=== PATIENT | female | born 1950 | race Caucasian/White ===

== ENCOUNTER 2019-08-18 13:38 | Observation (INO) | payer MEDICARE ==
[~2019-08-18] VITALS: Ht 167.6 cm; Wt 113.4 kg
--- NOTE | 2019-08-18 15:04 | NUR ---
client reports longstanding fungal infection to left foot and infected hair follicle. client has been dealing with this issue since June. believes she is having a reaction to prednisone injection yesterday.
[2019-08-18] MEDS ORDERED: TRIAMCINOLONE A15 G1 TOP (15:14)
[2019-08-18] MEDS ORDERED: ALPRAZOLAM0.5 M1 PO (15:14)
[2019-08-18] MEDS ORDERED: PROMETHAZINE HC25 M1 PO (15:15)
[2019-08-18] MEDS ORDERED: MUPIROCIN15 GM (15:15)
[2019-08-18] MEDS ORDERED: VOLTAREN100 GM (15:16)
[2019-08-18] MEDS ORDERED: SPIRONOLACTONE25 MG PO (15:16)
[2019-08-18] MEDS ORDERED: HYDROXYZINE HCL25 MG PO ×2 (15:16→22:46)
[2019-08-18] MEDS ORDERED: CLOTRIMAZOLE15 GM TOP (15:18)
[2019-08-18] MEDS ORDERED: OMEPRAZOLE40 MG PO (15:19)
[2019-08-18] MEDS ORDERED: VALTREX500 MG PO (15:19)
[2019-08-18] MEDS ORDERED: DIOVAN160 MG PO (15:19)
[2019-08-18] MEDS ORDERED: METOPROLOL SUCC25 MG PO (15:20)
[2019-08-18] MEDS ORDERED: URIBEL CAPSULE1 EACH (15:20)
[2019-08-18] MEDS ORDERED: ESTRADIOL1 MG PO (15:20)
[2019-08-18] MEDS ORDERED: TEMAZEPAM15 MG (15:20)
[2019-08-18] MEDS ORDERED: PREMARIN0.9 MG PO (15:21)
--- NOTE | 2019-08-18 15:42 | Emergency Department Note ---
History of Present Illnes History of Present Illness Chief Complaint: General Medicine Complaints History of Present Illness This is a 68 year old female arrives the ED with complaints of chest pain and back pain. Patient states pain began after taking steroids for her atopic dermatitis. Patient denies any fever or chills.. 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 Any updates have been documented here. Past Medical History Recent Fever: No Clinical Suspicion of Infectio: No New/Unexplained Change in Ment: No Past Medical History: Hypertension, Asthma, CAD, Anxiety, Depression, Other Mental Illness, Hyperlipedemia, Chronic Back Pain Other Medical History: MORBID OBEISITY SLEEP APNEA HEARING LOSS WITH HEARING AIDS. Past Surgical History: PCI, Back Surgery Review of Systems Review of Systems Constitutional: as per HPI EENTM: no symptoms Cardiovascular: as per HPI, chest pain Respiratory: no symptoms Gastrointestinal: no symptoms Genitourinary: no symptoms Musculoskeletal: no symptoms Neurological: no symptoms Psychological: no symptoms Endocrine: no symptoms Hematological/Lymphatic: no symptoms Review of other systems All other systems reviewed and negative. Physical Exam Related Data Allergies: Coded Allergies: Sulfa (Sulfonamide Antibiotics) (Verified Allergy, Unknown, 08/18/19) metoclopramide (Verified Allergy, Unknown, 08/18/19) Triage Vital Signs Vital Signs Date Time Temp Pulse Resp B/P (MAP) Pulse Ox O2 Delivery O2 Flow Rate FiO2 08/18/19 13:41 97.9 67 18 174/84 98 Vital signs reviewed: Yes Physical Exam CONSTITUTIONAL Constitutional: well-developed, well-nourished HENT HENT: normocephalic, atraumatic, oropharynx clear/moist, nose normal HENT L/R: left ext ear normal, right ext ear normal EYES Eyes: PERRL, conjunctivae normal NECK Neck: ROM normal PULMONARY Pulmonary: effort normal, breath sounds normal CARDIOVASCULAR Cardiovascular: regular rhythm, heart sounds normal, capillary refill normal, normal rate GASTROINTESTINAL Abdominal: soft, nontender, bowel sounds normal GENITOURINARY Genitourinary: exam deferred SKIN Skin: warm, dry MUSCULOSKELETAL Musculoskeletal: ROM normal NEUROLOGICAL Neurological: alert, oriented x 3, no gross motor or sensory deficits PSYCHOLOGICAL Psychological: mood/affect normal, judgement normal Results Laboratory Lab results reviewed: Yes Laboratory comments Laboratory Tests Test 08/19/19 05:50 08/19/19 00:45 08/18/19 22:18 Creatine Kinase 29 IU/L (29-168) 27 IU/L (29-168) Creatine Kinase MB 0.80 ng/mL (0-5.0) 0.30 ng/mL (0-5.0) Troponin I 0.002 ng/mL (0-0.300) < 0.001 ng/mL (0-0.300) Triglycerides Level 101 MG/DL (0-149) Cholesterol Level 254 MD/DL (0-199) LDL Cholesterol 142 MG/DL (60-130) HDL Cholesterol 92 MG/DL (40-60) Cholesterol/HDL Ratio 2.8 (3.0-3.6) Imaging Imaging results reviewed: Yes Impressions PLEURA: The pleural spaces are clear. HEART AND MEDIASTINUM: The thyroid gland is normal. No mediastinal, hilar or axillary lymphadenopathy. The heart is normal in size.. There is no pericardial effusion. Mild coronary artery calcifications. UPPER ABDOMEN: Limited non-contrast views of the upper abdomen show hepatic steatosis. The adrenal glands are normal. Large, 6.0 cm cyst exophytic of the posterior lower interpolar region of the left kidney. Atherosclerotic calcifications of the abdominal aorta. BONES: Surgical fusions of the lower cervical spine partially visualized. Mild spondylosis of the thoracic spine. SOFT TISSUES: Bilateral nodular breast tissue is a nonspecific finding not completely evaluated with this examination. Correlate with appropriate breast imaging exam. IMPRESSION: Lingular subsegmental atelectasis. Otherwise no acute abnormality. Diagnostics Tests Diagnostic test(s) reviewed: Yes Diagnostic comments PLEURA: The pleural spaces are clear. HEART AND MEDIASTINUM: The thyroid gland is normal. No mediastinal, hilar or axillary lymphadenopathy. The heart is normal in size.. There is no pericardial effusion. Mild coronary artery calcifications. UPPER ABDOMEN: Limited non-contrast views of the upper abdomen show hepatic steatosis. The adrenal glands are normal. Large, 6.0 cm cyst exophytic of the posterior lower interpolar region of the left kidney. Atherosclerotic calcifications of the abdominal aorta. BONES: Surgical fusions of the lower cervical spine partially visualized. Mild spondylosis of the thoracic spine. SOFT TISSUES: Bilateral nodular breast tissue is a nonspecific finding not completely evaluated with this examination. Correlate with appropriate breast imaging exam. IMPRESSION: Lingular subsegmental atelectasis. Otherwise no acute abnormality. Procedures 12 Lead ECG Interpretation Prior NEUROUROLOGIST tracings: reviewed Rhythm: sinus rhythm Rate: normal QRS axis: left Conduction: left bundle branch block Clinical Impression: normal ECG Smoking Cessation Patient acknowledges need for: Yes Critical Care Time Subsequent provider I assumed direction of critical care for this patient from another provider of my specialty. Assessment & Plan Assessment & Plan Final Impression: (1) CHEST PAIN, UNSPECIFIED Assessment & Plan cbc, cmp CT Chest admit for serial cardiac markers Depart Disposition: ADMITTED Last Vital Signs Date Time Temp Pulse Resp B/P (MAP) Pulse Ox O2 Delivery O2 Flow Rate FiO2 08/18/19 15:03 97.6 68 16 195/107 98 Home Meds Reported Medications Temazepam (RESTORIL) 15 Mg Capsule, 60 MG PO HS, #60 TAB 08/18/19 Tramadol Hcl (ULTRAM) 50 Mg Tablet, 100 MG PO Q8H PRN for MODERATE PAIN (4-6), TAB 08/18/19 Hydroxyzine Hcl (HYDROXYZINE HCL) 25 Mg Tablet, 50 MG PO TID PRN for ITCHING, #30 TAB 50-100mg 08/18/19 Prednisone (PREDNISONE) 20 Mg Tab, 20 MG PO DAILY, #30 TAB 08/18/19 Clobetasol Propionate (CLOBETASOL PROPIONATE) 1 Ea/15 Gm Cr, 1 APPLIC TOP BID 08/18/19 Estrogens, Conjugated (PREMARIN) 0.9 Mg Tablet, 0.9 MG PO DAILY 08/18/19 Metoprolol Succinate (METOPROLOL SUCCINATE) 25 Mg Tab.er.24h, 25 MG PO DAILY 08/18/19 Valsartan (DIOVAN) 160 Mg Tab, 160 MG PO DAILY, #60 TAB 08/18/19 Valacyclovir Hcl (VALTREX) 500 Mg Tab, 1000 MG PO BID PRN for ITCHING, TAB 08/18/19 Omeprazole (OMEPRAZOLE) 40 Mg Capsule.dr, 40 MG PO DAILY 08/18/19 Spironolactone (SPIRONOLACTONE) 25 Mg Tablet, 50 MG PO DAILY, #60 TAB 08/18/19 Promethazine Hcl (PROMETHAZINE HCL) 25 Mg Tablet, 12.5 MG PO BID PRN for NAUSEA, TAB 08/18/19 Alprazolam (ALPRAZOLAM) 0.5 Mg Tab.rapdis, 0.5 MG PO HS PRN for ANXIETY 08/18/19 Discontinued Reported Medications Ketoconazole (KETOCONAZOLE) 15 Gm Cream..g., 1 APPLIC TOP DAILY, GM 08/18/19 Cyclobenzaprine Hcl (CYCLOBENZAPRINE HCL) 10 Mg Tablet, 10 MG PO TID PRN for MUSCLE SPASMS, TAB 08/18/19 Baclofen (BACLOFEN) 10 Mg Tablet, 10 MG PO Q6H PRN for MUSCLE SPASMS, #90 TAB 08/18/19 Temazepam (TEMAZEPAM) 15 Mg Capsule 08/18/19 Mth/Me Blue/Sod Phos/Phen/Hyos (URIBEL CAPSULE) 1 Each Capsule 08/18/19 Estradiol (ESTRADIOL) 1 Mg Tab, 0.1 MG PO DAILY, #30 TAB 08/18/19 Clotrimazole (CLOTRIMAZOLE) 15 Gm Cream..g., 1 % TOP, EACH 08/18/19 Diclofenac Sodium (VOLTAREN) 100 Gm Gel..gram. THERAPEUTICALLY SUBSTITUTED WITH IBUPROFEN 600MG 08/18/19 Hydroxyzine Hcl (HYDROXYZINE HCL) 25 Mg Tablet, 25 MG PO DAILY, #30 TAB 08/18/19 Mupirocin Calcium (Mupirocin) 15 Gm Cream..g. 08/18/19 Triamcinolone Acet (TRIAMCINOLONE ACETONIDE) 15 Gm Cr, 1 APPLIC TOP BID 08/18/19 HAMZAH OLIVEIRA, Aug 18, 2019 15:42
[2019-08-18] MEDS ORDERED: ASPIRIN 81 MG CHEW TAB PO ONE (15:45)
[2019-08-18 15:53] LABS: BASOPHILS % 0.3 % (0.0-1.0); EOSINOPHILS # (AUTO) 0.1 (0.0-0.4); EOSINOPHILS % 1.5 % (0.0-6.0); HEMATOCRIT 38.3 % (34.2-44.1); HEMOGLOBIN 12.6 g/dL (12.0-16.0); LYMPHOCYTES # (AUTO) 1.7 (1.0-3.2); LYMPHOCYTES % 29.2 % (18.0-39.1); MEAN CORPUSCULAR HEMOGLOBIN 30.2 pg (28-32); MEAN CORPUSCULAR HGB CONC 32.9 g/dL (31-35); MEAN CORPUSCULAR VOLUME 91.8 fL (81-99); MONOCYTES # (AUTO) 0.4 (0.2-0.8); MONOCYTES % 6.2 % (4.4-11.3); NEUTROPHILS # (AUTO) 3.6 (2.1-6.9); NEUTROPHILS % 61.4 % (38.7-80.0); PLATELET COUNT 205 x10e3/uL (140-360); RED BLOOD COUNT 4.17 x10e6/uL (3.6-5.1); RED CELL DISTRIBUTION WIDTH 12.6 % (11.7-14.4)
[2019-08-18 16:13] LABS: ALANINE AMINOTRANSFERASE 12 IU/L (0-55); ALBUMIN/GLOBULIN RATIO 1.3 (0.8-2.0); ALKALINE PHOSPHATASE 74 IU/L (40-150); ANION GAP 12.5 mmol/L (8-16); BLOOD UREA NITROGEN 19 mg/dL (7-26); BUN/CREATININE RATIO 18 (6-25); CALCIUM 9.4 mg/dL (8.4-10.2); CARBON DIOXIDE 28 mmol/L (22-29); CHLORIDE 105 mmol/L (98-107); CREATINE KINASE 25 IU/L (29-168); CREATININE, SERUM 1.07 mg/dL (0.57-1.11); EST GLOMERULAR FILTRATION RATE 51 ML/MIN (60-); GLUCOSE 100 mg/dL (74-118); POTASSIUM 3.5 mmol/L (3.5-5.1); SODIUM 142 mmol/L (136-145)
--- NOTE | 2019-08-18 17:59 | Diagnostic Imaging Report ---
EXAMINATION: CHEST SINGLE (PORTABLE) INDICATION: Dyspnea. COMPARISON: None FINDINGS: TUBES and LINES: None. LUNGS: Left basilar platelike atelectasis. There is no evidence of pneumonia or pulmonary edema. PLEURA: No pleural effusion or pneumothorax. HEART AND MEDIASTINUM: The cardiomediastinal silhouette is unremarkable. BONES AND SOFT TISSUES: No acute osseous lesion. Soft tissues are unremarkable. UPPER ABDOMEN: No free air under the diaphragm. IMPRESSION: No acute thoracic abnormality. Signed by: Dr. Elsy Hernandez M.D. on 08/18/2019 5:55 PM
--- NOTE | 2019-08-18 18:12 | Diagnostic Imaging Report ---
EXAM: CT Chest WITH contrast 08/18/2019 4:44 PM INDICATION: Pain. Dyspnea. COMPARISON: None TECHNIQUE: Chest was scanned utilizing a multidetector helical scanner from the lung apex through the level of the adrenal glands without administration of IV contrast. Coronal and sagittal reformations were obtained. Pulmonary embolism protocol was performed. IV CONTRAST: 100 cc Isovue 300 RADIATION DOSE: Total DLP: 510.97 mGy*cm Estimated effective dose: (DLP x 0.014 x size factor) mSv COMPLICATIONS: None FINDINGS: LINES/ TUBES: None. LUNGS AND AIRWAYS: Lingular subsegmental atelectasis. No filling defects to the segmental level. Airways are normal. PLEURA: The pleural spaces are clear. HEART AND MEDIASTINUM: The thyroid gland is normal. No mediastinal, hilar or axillary lymphadenopathy. The heart is normal in size.. There is no pericardial effusion. Mild coronary artery calcifications. UPPER ABDOMEN: Limited non-contrast views of the upper abdomen show hepatic steatosis. The adrenal glands are normal. Large, 6.0 cm cyst exophytic of the posterior lower interpolar region of the left kidney. Atherosclerotic calcifications of the abdominal aorta. BONES: Surgical fusions of the lower cervical spine partially visualized. Mild spondylosis of the thoracic spine. SOFT TISSUES: Bilateral nodular breast tissue is a nonspecific finding not completely evaluated with this examination. Correlate with appropriate breast imaging exam. IMPRESSION: Lingular subsegmental atelectasis. Otherwise no acute abnormality. Signed by: Dr. Elsy Hernandez M.D. on 08/18/2019 6:09 PM
[2019-08-18] MEDS ORDERED: IOPAMIDOL 370 MG/ML 200 ML INFUS..BTL INJ ONE (19:15)
[2019-08-18] MEDS ORDERED: SODIUM CHLORIDE 0.9% 50ML 50 ML ONE (19:15)
--- OUTSIDE RECORDS SUMMARY | 2019-08-18 20:04 | XMS REPORT | Clinical Summary ---
Author Author LEVY [employer] [place] [address] [facility] [employer] [facility] Address Unknown Phone Unavailable Care Team Providers Care Textile Supervisor Name Role Phone Layo Stock PCP Allergies Comments Active Allergy Reactions Severity Noted Date Bandaids Adhesive Tape Rash Low 01/11/2013 "coming out of skin" Metoclopramide Hcl Other (See High 09/10/2016 Comments) Sulfa (Sulfonamide Hives Medium 09/10/2016 Antibiotics) Medications End Date Status Medication Sig Dispensed Refills Start Date Active temazepam (RESTORIL) 30 Take 30 mg by 0 mg capsule mouth every night as needed for Sleep Takes 2 tablets . Active metoprolol (LOPRESSOR) 25 Take 25 mg by 0 MG tablet mouth daily. Active valsartan-hydrochlorothia Take 1 tablet 0 zide (DIOVAN HCT) by mouth 160-12.5 mg per tablet daily. Active estradiol (ESTRACE) 0.01 Place 1 g 0 01/19 % (0.1 mg/gram) vaginal vaginally as 8 cream needed . Active albuterol HFA (PROVENTIL Take 180 mcg 0 07/15 HFA) 90 mcg/actuation by mouth 9 inhaler every 6 (six) hours as needed . Active DULoxetine (CYMBALTA) 60 Take 60 mg by 0 MG capsule mouth daily. Active doxycycline (VIBRAMYCIN) Take 100 mg 0 100 MG capsule by mouth 2 (two) times daily. Active clotrimazole (LOTRIMIN) 1 Apply 0 % cream topically 2 (two) times daily. Active HYDROcodone-acetaminophen Take 1 tablet 0 (NORCO 10-325) 10-325 mg by mouth per tablet every 6 (six) hours as needed for Pain. Active estrogens, conjugated, Take 0.9 mg 0 (PREMARIN) 0.9 MG tablet by mouth daily for 21 days then do not take for 7 days. . Active omeprazole (PRILOSEC) 40 Take 40 mg by 0 MG capsule mouth daily. Active josh-salma.phos-phsa Take by 0 l-hyo 118-10-40.8-36 mg mouth. Cap Active spironolactone Take 50 mg by 0 (ALDACTONE) 50 MG tablet mouth daily. Active valACYclovir (VALTREX) Take 500 mg 0 500 MG tablet by mouth. Active ALPRAZolam (XANAX) 0.5 MG Take 0.5 mg 0 tablet by mouth every night as needed for Anxiety. Active traMADoL (ULTRAM) 50 mg Take 50 mg by 0 tablet mouth every 6 (six) hours as needed for Pain. 05/25/2019 Discontinued buPROPion (WELLBUTRIN XL) Take 300 mg 0 300 MG 24 hr tablet by mouth daily. 05/25/2019 Discontinued atorvastatin (LIPITOR) 40 Take 40 mg by 0 MG tablet mouth nightly. 05/25/2019 Discontinued ALPRAZolam (XANAX) 0.5 MG Take 0.5 mg 0 tablet by mouth every night as needed for Anxiety. 05/25/2019 Discontinued omeprazole (PRILOSEC) 40 Take 40 mg by 0 MG capsule mouth daily. 05/25/2019 Discontinued cyclobenzaprine (FEXMID) Take 7.5 mg 0 7.5 MG tablet by mouth 2 (two) times daily as needed for Muscle spasms. 05/25/2019 Discontinued cyclobenzaprine Take 10 mg by 0 (FLEXERIL) 10 MG tablet mouth 2 (two) times daily as needed for Muscle spasms. 05/25/2019 Discontinued venlafaxine (EFFEXOR-XR) Take 300 mg 0 75 MG 24 hr capsule by mouth daily . 10/14/2018 Discontinued HYDROcodone-acetaminophen TK 1 T PO Q 6 0 (NORCO 10-325) 10-325 mg H PRF PAIN 9 per tablet 05/25/2019 Discontinued PROAIR HFA 90 INHALE 2 6 mcg/actuation inhaler PUFFS PO Q 4 9 H PRF WHEEZINF 10/24/2018 HYDROcodone-acetaminophen Take 1-2 45 tablet 0 (NORCO 10-325) 10-325 mg tablets by 9 per tablet mouth every 4 (four) hours as needed for Pain for up to 10 days. Max Daily Amount: 12 tablets 11/14/2018 aspirin 325 MG EC tablet Take 1 tablet 30 tablet 0 (325 mg 9 total) by mouth daily for 30 days. 11/13/2018 meloxicam (MOBIC) 15 MG Take 1 tablet 30 tablet 0 tablet (15 mg total) 9 by mouth daily for 30 days. 06/01/2019 mupirocin (BACTROBAN) 2 % Apply 1 g 22 g 0 ointment topically 3 0 (three) times daily for 7 days. Active Problems Problem Noted Date Arthritis 10/13/2018 Arthritis of right knee 09/18/2016 Status post right knee replacement 09/18/2016 Encounters Care Team Description Date Type Specialty Tanya Yanes MD Visit for wound check (Primary Dx) 05/25/2019 Emergency Emergency Medicine 05/25/2019 Travel Kalyn Leija MD Bilateral renal masses (Primary Dx) 12/22/2018 Outside Orders Central Scheduling Bret Fuller MD Bilateral hand pain; Chronic radicular low back pain 11/09/2018 Hospital Radiology Encounter Bret Fuller MD Bilateral hand pain; Chronic radicular low back pain 11/09/2018 Hospital Radiology Encounter Bret Fuller MD Bilateral hand pain; Chronic radicular low back pain 11/09/2018 Hospital Radiology Encounter Bret Fuller MD Bilateral hand pain (Primary Dx); Chronic radicular low back pain 11/09/2018 Outside Orders Central Scheduling Lisa Mckeon RN Follow-up 10/15/2018 Telephone Anesthesiology Mahesh Esqueda Jr., MD MAKOPLASTY,KNEE 10/13/2018 Surgery General Surgery Alber Abarca MD 10/13/2018 Anesthesia General Surgery Event Mahesh Esqueda Jr., MD 10/13/2018 [facility] Internal Me dicine - Encounter 10/14/2018 10/13/2018 Travel 10/01/2018 Hospital Pre-Admission Testi ng Encounter Mahesh Esqueda Jr., MD 1, [facility] [address] Room Primary osteoarthritis of left knee 08/24/2018 Hospital Computed Tomography Encounter Mahesh [facility]eda Jr., [facility] Primary osteoarthritis of left knee 08/24/2018 Hospital Computed Tomography Encounter Mahesh Esqueda Jr., MD Primary osteoarthritis of left knee (Gely sandoval Dx) 08/24/2018 Outside Orders Central Scheduling Mahesh Esqueda Jr., MD Osteoarthritis of left knee, unspecified osteoarthritis type (Primary Dx); Primary osteoarthritis of left knee 08/23/2018 Outside Orders Central Scheduling after 08/17/2018 Social History Date Tobacco Use Types Packs/Day Years Used Never Smoker Smokeless Tobacco: Never Used Alcohol Use Drinks/Week oz/Week Comments No Sex Assigned at Date Recorded Not on file Industry Job Start Date Occupation Not on file Not on file Not on file Travel End Travel History Travel Start No recent travel history available. Last Filed Vital Signs Time Taken Vital Sign Reading 05/25/2019 2:25 PM CDT Blood Pressure 155/77 05/25/2019 2:25 PM CDT Pulse 70 05/25/2019 2:25 PM CDT Temperature 36.3 C (97.4 F) 05/25/2019 2:25 PM CDT Respiratory Rate 20 05/25/2019 12:53 PM CDT Oxygen Saturation 99% 10/14/2018 4:57 AM CDT Inhaled Oxygen 21% Concentration 05/25/2019 12:53 PM CDT Weight 77.1 kg (170 lb) 05/25/2019 12:53 PM CDT Height 147.3 cm (4' 10") 05/25/2019 12:53 PM CDT Body Mass Index 35.53 Plan of Treatment Health Maintenance Due Date Last Done Comments BREAST CANCER SCREENING 1950 COLON CANCER SCREENING 1950 COLONOSCOPY MEDICARE ANNUAL WELLNESS 09/14/2018 (YEAR 2 or FIRST YEAR if no IPPE) PNEUMOCOCCAL 65+ Completed 11/09/2018, 019, 08/23/2018 LOW/MEDIUM RISK INFLUENZA VACCINE Completed 12/24/2018, 018, 11/15/2015 Implants Device Identifier Shelf Expiration Date Model / Serial / L ot Implanted Type Area Manufactur er 01/13/2019 6191-1-001 / / [id number] Cement Bone Surg Smplx P Full Cement/Edmar Right: Knee JOHNATHAN:ST 6191-1-001 - [id number] ler/Adhesi CORNELIUS Implanted: Qty: 2 on 09/18/2016 by Cherie Kate MD 05/13/2022 [id number] / / [id number] Senthil Bn Palacos R 40 G [id number] - IMPLANTS Left: Knee HERAEUS:HE [id number] RAEUS Implanted: Qty: 1 on 10/13/2018 by Mahesh Munson Jr., MD 01/06/2021 5551-G-299 / / [id number] Patella Tri Asymmetric [id number] Joints Right: Knee JOHNATHAN:ST 5551-G-299 - [id number] CONRELIUS Implanted: Qty: 1 on 09/18/2016 by Cherie Perry MD 08/25/2021 5521-B-300 / / [id number] Baseplt Tri Ts 3 5521-B-300 - Joints Right: Knee JOHNATHAN:ST [id number] CORNELIUS Implanted: Qty: 1 on 09/18/2016 by Cherie Perry MD 04/16/2021 5510-F-302 / / [id number] Comp Femoral #3 R 5510-F-302 - Joints Right: Knee JOHNATHAN:ST [id number] CORNELIUS Implanted: Qty: 1 on 09/18/2016 by Cherie Perry MD 04/15/2021 5530-G-309 / / [id number] Insrt Tib Tri Crx 9mm 5530-G-309 - Joints Right: Knee JOHNATHAN:ST [id number] CORNELIUS Implanted: Qty: 1 on 09/18/2016 by Cherie Perry MD 01/06/2022 5530-G-209 / / [id number] Insrt Tib Tri Crx Sz2 9mm TOTAL Left: Knee STRY KER:ST 5530-G-209 - [id number] JOINT CORNELIUS Implanted: Qty: 1 on 10/13/2018 by Mahesh Vaughn Jr., MD 11/27/2021 5510-F-201 / / [id number] Comp Fem Cr Senthil No.2 L 5510-F-201 - TOTAL Left: Knee JOHNATHAN:ST [id number] JOINT CORNELIUS Implanted: Qty: 1 on 10/13/2018 by CONSTRUCT ORT Mahesh Nazario Jr., MD CS 07/05/2023 5521-B-200 / / [id number] Baseplt Triathlon Ts Sz2 5521-B-200 TOTAL Left: Knee JOHNATHAN:ST - [id number] JOINT CORNELIUS Implanted: Qty: 1 on 10/13/2018 by CONSTRUCT ORT Mahesh Nazario Jr., MD Procedures Comments Procedure Name Priority Date/Time Associated Diag nosis XR SPINE LUMBAR COMPLETE Routine 11/09/2018 Bilat eral hand pain MIN 4 VIEWS 4:13 PM CDT Chronic radicular l ow back pain XR HAND 3 VIEWS LEFT Routine 11/09/2018 Bilateral hand pain 4:02 PM CDT Chronic radicular low back pain XR HAND 3 VIEWS RIGHT Routine 11/09/2018 Bilatera l hand pain 4:02 PM CDT Chronic radicular low back pain RHYTHM STRIP - SCAN 10/18/2018 8:00 AM CDT TRANSFUSION SERVICE 10/14/2018 REPORT - SCAN 5:53 PM CDT BASIC METABOLIC PANEL (7) Routine 10/14/2018 4:48 AM CDT HEMOGLOBIN AND HEMATOCRIT Routine 10/14/2018 4:48 AM CDT HIV-1 ANTIGEN WITH Routine 10/13/2018 HIV-1/2 ANTIBODY 9:29 PM CDT HEPATITIS PANEL, ACUTE Routine 10/13/2018 9:29 PM CDT XR KNEE LEFT 1 OR 2 VIEWS Routine 10/13/2018 6:27 PM CDT TISSUE EXAM AP Routine 10/13/2018 5:11 PM CDT PROCEDURE W/ BILLY ROBOT 10/13/2018 Primary osteo arthritis of 3:30 PM CDT left knee Case Notes Special Needs (JOHNATHAN TRIATHLON, BILLY ROBOT, SPINAL WITH PERIPHERAL NERVE BLOCK) MAKOPLASTY,KNEE 10/13/2018 Primary osteoarthri tis of 3:30 PM CDT left knee Case Notes Special Needs (JOHNATHAN TRIATHLON, BILLY ROBOT, SPINAL WITH PERIPHERAL NERVE BLOCK) MA AN PERINEURAL CATH - Routine 10/13/2018 NO CHARGE 3:18 PM CDT ANESTHESIA SPINAL BLOCK Routine 10/13/2018 3:17 PM CDT TYPE AND SCREEN, Routine 10/13/2018 AUTOMATED 11:[address] LOWER EXTREMITY Routine 08/24/2018 Primary ost eoarthritis of WITHOUT IV CONTRAST LEFT 3:00 PM CDT left knee after 08/17/2018 Results * XR spine lumbar complete 4 views min (11/09/2018 4:13 PM CDT) Specimen Narrative Performed At FINAL REPORT [facility] Lumbar Spine Radiographs:Five views HISTORY:Pain COMPARISON: None available. DISCUSSION: There are five non-rib bearing lumbar v ertebral bodies. The alignment of the spine is within no rmal limits. No displaced fracture or compression de formity is identified. Degenerative disc disease at multiple l evels, most markedly at L5-S1. Bilateral facet arthropathy at L4-L5 an d L5-S1. Consultations of the abdominal aorta in cidentally noted. IMPRESSION: Degenerative disc disease and facet art hropathy at multiple levels most markedly involving L5-S1. Signed: Ulises Bailey MD Report Verified Date/Time: 9 16:18:32 Reading Location: [facility] Reading Ro om 3 - B01.625 Procedure Note Interface, External Ris In - 11/09/2018 4:20 PM CDT FINAL REPORT Lumbar Spine Radiographs: Five views HISTORY: Pain COMPARISON: None available. DISCUSSION: There are five non-rib bearing lumbar vertebral bodies. The alignment of the spine is within normal limits. No displaced fracture or compression deformity is identified. Degenerative disc disease at multiple levels, most markedly at L5-S1. Bilateral facet arthropathy at L4-L5 and L5-S1. Consultations of the abdominal aorta incidentally noted. IMPRESSION: Degenerative disc disease and facet arthropathy at multiple levels most markedly involving L5-S1. Signed: Ulises Bailey MD Report Verified Date/Time: 11/09/2018 16:18:32 Reading Location: [employer] Reading Room 3 [place] [address] Performing Organization Address City/State/[facility] Ph one Number GE [facility] * XR hand 3 views right (11/09/2018 4:02 PM CDT) Specimen Narrative Performed At FINAL REPORT [facility] Bilateral hand three - views HISTORY:Pain. COMPARISON: None FINDINGS: No displaced fracture. Osseous alignment is within normal limi ts. Mild degenerative osteoarthrosis of mul tiple bilateral DIP joints consisting of slight joint space narrow ing, minimal subchondral sclerosis, a small marginal osteophytes , particularly involving the first distal interphalangeal joint bila terally, right greater than left. IMPRESSION: Mild bilateral degenerative osteoarthro sis involving the DIP joints. Signed: Ulises Bailey MD Report Verified Date/Time: 9 16:21:26 Reading Location: [employer] Reading Ro om 3 [place] [address] Procedure Note Interface, External Ris In - 11/09/2018 4:23 PM CDT FINAL REPORT Bilateral hand three - views HISTORY: Pain. COMPARISON: None FINDINGS: No displaced fracture. Osseous alignment is within normal limits. Mild degenerative osteoarthrosis of multiple bilateral DIP joints consisting of slight joint space narrowing, minimal subchondral sclerosis, a small marginal osteophytes, particularly involving the first distal interphalangeal joint bilaterally, right greater than left. 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 Signed: Ulises Bailey MD Report Verified Date/Time: 11/09/2018 16:21:26 Reading Location: [employer] Reading Room 3 [facility] Performing Organization Address City/State/Zipcode Ph one Number GE [facility] * XR hand 3 views left (11/09/2018 4:02 PM CDT) Specimen Narrative Performed At FINAL REPORT [facility] Bilateral hand three - views HISTORY:Pain. COMPARISON: None FINDINGS: No displaced fracture. Osseous alignment is within normal limi ts. Mild degenerative osteoarthrosis of mul tiple bilateral DIP joints consisting of slight joint space narrow ing, minimal subchondral sclerosis, a small marginal osteophytes , particularly involving the first distal interphalangeal joint bila terally, right greater than left. IMPRESSION: Mild bilateral degenerative osteoarthro sis involving the DIP joints. Signed: Ulises Bailey MD Report Verified Date/Time: 16:21:26 Reading Location: [employer] [place] Ro om [address] [place] [address] Procedure Note Interface, External Ris In - 11/09/2018 4:23 PM CDT FINAL REPORT Bilateral hand three - views HISTORY: Pain. COMPARISON: None FINDINGS: No displaced fracture. Osseous alignment is within normal limits. Mild degenerative osteoarthrosis of multiple bilateral DIP joints consisting of slight joint space narrowing, minimal subchondral sclerosis, a small marginal osteophytes, particularly involving the first distal interphalangeal joint bilaterally, right greater than left. 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 Signed: Ulises Bailey MD Report Verified Date/Time: 11/09/2018 16:21:26 Reading Location: [employer] Reading Room [address] [place] [address] Performing Organization Address City/State/Zipcode Ph one Number GE [facility] * RHYTHM STRIP - SCAN (10/18/2018 8:00 AM CDT) Narrative Performed At This result has an attachment that is n ot available. * TRANSFUSION SERVICE REPORT - SCAN (10/14/2018 5:53 PM CDT) Narrative Performed At This result has an attachment that is n ot available. * Hemoglobin and hematocrit (10/14/2018 4:48 AM CDT) Hemoglobin 10.0 (L) 11.2 - 15.7 GM/DL [facility] [place] Hematocrit 30.3 (L) 34.1 - 44.9 % [facility] [place] Specimen Blood Performing Organization Address [facility] one Number [facility] [place], [place] [address] [place] * Basic Metabolic Panel (10/14/2018 4:48 AM CDT) Sodium 141 136 - 145 meq/L [facility] [place] Potassium 3.2 (L) 3.5 - 5.1 meq/L [facility] [place] Chloride 105 98 - 107 meq/L [facility] [place] CO2 26 22 - 29 meq/L [facility] [place] BUN 9 7 - 21 mg/dL [facility] [place] Creatinine 1.10 0.57 - 1.25 mg/dL [facility] Glucose 100 70 - 105 mg/dL [facility] [place] Calcium 7.5 (L) 8.4 - 10.2 mg/dL [facility] [place] EGFR 50Comment: ESTIMATED GFR IS mL/min/1.73 sq m [facility] NOT ACCURATE CREATININE - [place] CLEARANCE IN PREDICTING GLOMERULAR FILTRATION RATE. ESTIMATED GFR IS NOT APPLICABLE FOR DIALYSIS PATIENTS. Specimen Blood Performing Organization Address [facility] one Number [address] [address] [place] * HIV-1 Antigen with HIV-1/2 Antibody (10/13/2018 9:29 PM CDT) HIV-1 Antigen with HIV Nonreactive Nonreactive [facility] 1&2 Antibody [facility] Specimen Blood Performing Organization Address City/[facility] Ph one Number [facility] [address] [place] [address] [facility] * Hepatitis panel, acute (10/13/2018 9:29 PM CDT) Hep A IgM Nonreactive Nonreactive [facility] Hep B C IgM Nonreactive Nonreactive [facility] Hepatitis C Ab Nonreactive Nonreactive [facility] HBsAg Screen Nonreactive Nonreactive [facility] Specimen Blood Performing Organization Address City/State/Zipcode Ph one Number [facility] [address] [place], [place] [address] MEDICAL CENTER * XR knee 1 or 2 views left (10/13/2018 6:27 PM CDT) Specimen Narrative Performed At FINAL REPORT [facility] Radiographs of the left knee - two view s HISTORY:Pain COMPARISON: April 07, 2018. FINDINGS: Bones: No acute displaced fracture. Osseous alignment is within normal limi ts. Joints: Patient status post left knee replaceme nt with associated postsurgical change. The surgical hardw are is intact without evidence of failure or loosening. Soft tissues: The soft tissues appear unremarkable. IMPRESSION: Patient status post left knee replaceme nt with associated postsurgical change. The surgical hardw are is intact without evidence of failure or loosening. Signed: Eric Vays MD Report Verified Date/Time: 07:43:55 Reading Location: [employer] Reading Ro om 1 [place] [address] Procedure Note Interface, External Ris In - 10/14/2018 7:46 AM CDT FINAL REPORT Radiographs of the left knee - two views HISTORY: Pain COMPARISON: April 07, 2018. FINDINGS: Bones: No acute displaced fracture. Osseous alignment is within normal limits. Joints: Patient status post left knee replacement with associated postsurgical change. The surgical hardware is intact without evidence of failure or loosening. Soft tissues: The soft tissues appear unremarkable. IMPRESSION: Patient status post left knee replacement with associated postsurgical change. The surgical hardware is intact without evidence of failure or loosening. Signed: Eric Vyas MD Report Verified Date/Time: 10/14/2018 07:43:55 Reading Location: [employer] Reading Room 1 [place] [address] Performing Organization Address City/State/Zipcode Ph one Number GE [facility] * Tissue Exam (10/13/2018 5:11 PM CDT) Case Report Surgical Pathology [facility] Report [facility] Case: [id number] Authorizing Provider:Mahesh Esqueda Collected: 10/13/2018 1711 Gus Rosales MD Ordering Location: [facility] [place] ived:0 10/14/2018 0821 Perioperative Services Pathologist: Gena Thorpe MD Specimen:Condyle,Left Knee DIAGNOSIS A. CONDYLE, LEFT KNEE, [facility] ARTHROPLASTY: [facility] - OSTEOARTHRITIS AND CHRONIC SYNOVITIS Signing Pathologist Direct Phone Line: [phone] CPT Code(s) [address] [facility] H [id number] [facility] CLINICAL HISTORY Pre and postop diagnosis: [facility] primary osteoarthritis of left [facility] knee SPECIMEN SOURCE Condyle, left knee [facility] GROSS DESCRIPTION Received fresh labeled with [facility] the patient's name, accession [facility] number and "condyle, left knee" is a 5 x 5 x 4 cm aggregate of multiple waldrop-white bone fragments to include the tibial plateau, epicondyles and patella. The articular surface displays focal areas of eburnation, erosion with a minimal amount of osteophytic formation. The specimen is serially sectioned to reveal homogeneous, yellow trabecular bone with no gross lesions. Plastic Design Applier sections are submitted in A1-A3, following decalcification. CG/pl MICROSCOPIC DESCRIPTION Performed. [facility] Specimen Tissue - Condyle,Left Knee Performing Organization Address City/State/Zipcode Ph one Number [address] [address] MEDICAL CENTER * ANESTHESIA PERIPHERAL BLOCK (10/13/2018 3:18 PM CDT) Narrative Performed At Dwight Patterson 10/13/20183: 19 PM Peripheral Block Patient location during procedure: pre- procedure Start time: 10/13/2018 3:09 PM End time: 10/13/2018 3:12 PM Procedure Indication: post-op pain savannah gement Preanesthetic Checklist Completed: patient identified, pre-op e valuation, timeout performed, IV checked, risks and benefits discussed, monitors and equipment checked, anesthesia consent given, prep site dry prior to draping and maximum sterile barriers were used: cap, mask, sterile gown, sterile gloves, and large sterile sheet Staffing Anesthesiologist: Dwight Swain Jr., MD Resident/COMMERCIAL COLLECTOR: Dwight Patterson Prep Prep: chlorhexidine gluconate and isopr opyl alcohol Procedures: sterile gloves, surgical ma sk, surgical hat, sterile technique and prep and sterile drape applied Peripheral Nerve Block Patient position: supine Patient monitoring: EKG, HR, BP and SpO 2 Laterality: left Block type: adductor canal Injection technique: catheter ultrasound guided - in plane, prescan w as completed prior to procedure and needle tip was visualized throughout th e entire procedure ultrasound image saved Block Dose: ropivicaine and catheter Infiltration strength: 0.5 % Dose: 20 mL Needle Needle type: over the needle catheter Needle gauge: 20 G Needle length: 75. Needle Localization:US guided Catheter type: open end Catheter size: 18 G Hydrodissection? yesCatheter tunneled Dressing: Occlusive dressing applied in sterile fashion and Dermabond applied at the catheter insertion site Assessment Injection assessment: incremental injec tion and negative aspiration for heme LOC: Sedated with meaningful contact supplemental oxygen used.no evidence of intravascular injection and no heart rate changeno paresthesia patient had no immediate complications and patient tolerated the procedure well Additional Notes The above procedures were supervised by the attending listed above. The attending was present for the entire du ration of the procedure. Procedure Note Dwight Patterson Dace - 10/13/2018 3:18 PM CDT Peripheral Block Patient location during procedure: pre-procedure Start time: 10/13/2018 3:09 PM End time: 10/13/2018 3:12 PM Procedure Indication: post-op pain management Preanesthetic Checklist Completed: patient identified, pre-op evaluation, timeout performed, IV checked, risks and benefits discussed, monitors and equipment checked, anesthesia consent given, prep site dry prior to draping and maximum sterile barriers were used: cap, mask, sterile gown, sterile gloves, and large sterile sheet Staffing Anesthesiologist: Dwight Swain Jr., MD Resident/COMMERCIAL COLLECTOR: Dwight Patterson Prep Prep: chlorhexidine gluconate and isopropyl alcohol Procedures: sterile gloves, surgical mask, surgical hat, sterile technique and prep and sterile drape applied Peripheral Nerve Block Patient position: supine Patient monitoring: EKG, HR, BP and SpO2 Laterality: left Block type: adductor canal Injection technique: catheter ultrasound guided - in plane, prescan was completed prior to procedure and needle tip was visualized throughout the entire procedure ultrasound image saved Block Dose: ropivicaine and catheter Infiltration strength: 0.5 % Dose: 20 mL Needle Needle type: over the needle catheter Needle gauge: 20 G Needle length: 75. Needle Localization: US guided Catheter type: open end Catheter size: 18 G Hydrodissection? yesCatheter tunneled Dressing: Occlusive dressing applied in sterile fashion and Dermabond applied at the catheter insertion site Assessment Injection assessment: incremental injection and negative aspiration for heme LOC: Sedated with meaningful contact supplemental oxygen used.no evidence of intravascular injection and no heart rate changeno paresthesia patient had no immediate complications and patient tolerated the procedure well Additional Notes The above procedures were supervised by the attending listed above. The attending was present for the entire duration of the procedure. * ANESTHESIA SPINAL BLOCK (10/13/2018 3:17 PM CDT) Narrative Performed At [facility] 10/13/20183: 18 PM Spinal Block Patient location during procedure: pre- procedure Start time: 10/13/2018 3:02 PM End time: 10/13/2018 3:06 PM Procedure Indication: primary anestheti c Staffing Anesthesiologist: Dwight Swain Jr., MD Resident/COMMERCIAL COLLECTOR: [facility] Preanesthetic Checklist Completed: patient identified, pre-op e valuation, timeout performed, IV checked, risks and benefits discussed, monitors and equipment checked, anesthesia consent given, prep site dry prior to draping and maximum sterile barriers were used: cap, mask, sterile gown, sterile gloves, and large sterile sheet Prep Prep: chlorhexidine gluconate and isopr opyl alcohol Procedures: sterile gloves, surgical ma sk, surgical hat, sterile technique and prep and sterile drape applied Spinal Block Patient position: sitting Patient monitoring: EKG, HR, BP and SpO 2 Approach: midlineNo pictures available Level:L3-4 Injection technique: single-shot landmark technique and landmark techniq ue Needle Needle type: pencil-tip Needle gauge: 25 G Needle Length: 9 cm Used introducer Assessment Events: barbotage patient tolerated the procedure well, p atient had no immediate complications and patient had adequate level of anesthesia and negative Allis clamp test Additional Notes The above procedures were supervised by the attending listed above. The attending was present for the entire du ration of the procedure. Procedure Note [facility] Patterson - 10/13/2018 3:17 PM CDT Spinal Block Patient location during procedure: pre-procedure Start time: 10/13/2018 3:02 PM End time: 10/13/2018 3:06 PM Procedure Indication: primary anesthetic Staffing Anesthesiologist: Dwight Swain Jr., MD Resident/COMMERCIAL COLLECTOR: [facility] Patterson Preanesthetic Checklist Completed: patient identified, pre-op evaluation, timeout performed, IV checked, risks and benefits discussed, monitors and equipment checked, anesthesia consent given, prep site dry prior to draping and maximum sterile barriers were used: cap, mask, sterile gown, sterile gloves, and large sterile sheet Prep Prep: chlorhexidine gluconate and isopropyl alcohol Procedures: sterile gloves, surgical mask, surgical hat, sterile technique and prep and sterile drape applied Spinal Block Patient position: sitting Patient monitoring: EKG, HR, BP and SpO2 Approach: midlineNo pictures available Level: L3-4 Injection technique: single-shot landmark technique and landmark technique Needle Needle type: pencil-tip Needle gauge: 25 G Needle Length: 9 cm Used introducer Assessment Events: barbotage patient tolerated the procedure well, patient had no immediate complications and patient had adequate level of anesthesia and negative Allis clamp test Additional Notes The above procedures were supervised by the attending listed above. The attending was present for the entire duration of the procedure. * Type and screen, automated (10/13/2018 11:40 AM CDT) ABO/RH AUTOMATED (BEAKER) O POSITIVE [facility] Ab Scrn NEGATIVE [facility] Specimen Blood Performing Organization Address City/State/Zipcode Ph one Number [facility] [address] [place] [address] [address] * CT lower extremity without IV contrast left (08/24/2018 3:00 PM CDT) Specimen Narrative Performed At FINAL REPORT [employer] TECHNIQUE: Computed tomography imaging of the LEFT KNEE was performed WITHOUT injected contrast. The Billy protocol pe rformed with the guidebar. HISTORY:None COMPARISON:None available. FINDINGS: Billy CT knee protocol performed for pre operative CT for the replacement. Axial images of the left hip, left knee , and left ankle performed. No coronal or sagittal reconstructions for protocol. No visualized fracture. No lytic or walter stic lesion. No soft tissue mass. Surgical anchor within the calcaneus. IMPRESSION: Preoperative CT for knee replacement Billy protocol Signed: Dwight Thayer MD Report Verified Date/Time: 9 07:13:24 Procedure Note Interface, External Ris In - 08/25/2018 7:15 AM CDT FINAL REPORT TECHNIQUE: Computed tomography imaging of the LEFT KNEE was performed WITHOUT injected contrast. The Billy protocol performed with the guidebar. HISTORY: None COMPARISON: None available. FINDINGS: Billy CT knee protocol performed for preoperative CT for the replacement. Axial images of the left hip, left knee, and left ankle performed. No coronal or sagittal reconstructions for protocol. No visualized fracture. No lytic or blastic lesion. No soft tissue mass. Surgical anchor within the calcaneus. IMPRESSION: Preoperative CT for knee replacement with Billy protocol Signed: Dwight Thayer MD Report Verified Date/Time: 08/25/2018 07:13:24 Performing Organization Address City/State/Zipcode Ph one Number GE RIS after 08/17/2018 Insurance Payer Benefit Subscriber ID Type Phone Address Plan / Group MEDICARE MEDICARE A xxxxxxxxxxx Medicare B MCR SUPPLEMENT/INDIVIDUAL AARP/UNITE xxxxxxxxxxx [facility] D HEALTHCARE [phone] [place] ([place]) [place] [address] Advance Directives For more information, please contact: [facility] [address] [place] [address] Date Inactivated Comments Code Status Date Activated 10/14/2018 5:12 PM Full Code 10/13/2018 7:58 PM This code status was determined by: Patient 10/13/2018 7:57 PM Full Code 10/13/2018 11:22 AM This code status was determined by: Patient 09/19/2016 8:40 PM Full Code 09/18/2016 5:08 AM This code status was determined by: Patient
--- OUTSIDE RECORDS SUMMARY | 2019-08-18 20:04 | XMS REPORT | Clinical Summary ---
Author Author [facility] Address Unknown Phone Unavailable Care Team Providers Care Director Employee Safety And Health Name Role Phone Asked, No Pcp PCP Unavailable Allergies Not on File Medications Not on file Active Problems Not on file Social History Date Tobacco Use Types Packs/Day Years Used Never Assessed Sex Assigned at Date Recorded Not on file Industry Job Start Date Occupation Not on file Not on file Not on file Travel End Travel History Travel Start No recent travel history available. Last Filed Vital Signs Not on file Plan of Treatment Health Maintenance Due Date Last Done Comments BREAST CANCER SCREENING 2002 COLONOSCOPY SCREENING 2002 SHINGLES VACCINES (#1) 2002 65+ PNEUMOCOCCAL VACCINE 2017 (1 of 2 - PCV13) INFLUENZA VACCINE 10/15/2019 11/19/2017, 11/15/2015 Results Not on fileafter 08/17/2018 Insurance Type Payer Benefit Subscriber ID Effective Phone Address Plan / Dates Group Commercial COMMERCIAL MISC MISC xxxxxxxxxx 2017-P COMMERCIAL resent Medicare MEDICARE MEDICARE xxxxxxxxxxx 2017-P JESÚS, PART A AND resent [place] B Advance Directives For more information, please contact: [phone] Patient Food And Beverage Checker Explanation Type Date Recorded Advance Directives, Living Will and Medical Power of Network Manager
--- OUTSIDE RECORDS SUMMARY | 2019-08-18 20:05 | XMS REPORT | Summary of Care ---
Author Author [facility] Organization [facility] Address Unknown Phone Unavailable Care Team Providers Care Finishing Lab Technician Name Role Phone [employer], [employer] 34 [phone] Reason for Visit * Reason Comments Pain Encounter Details Care Team Description Date Type Department Bret Fuller MD [address] [place] [address] Pain 10/26/2018 Office Visit [facility] [address], [place] [address] Allergies Comments Active Allergy Reactions Severity Noted Date Bandaids Adhesive Tape Rash Low 01/11/2013 Psych - pt states that she feels like she's coming out of her skin Metoclopramide Hcl Anxiety, Medium 09/11/2008 Other (See Comments) Sulfa Antibiotics Hives High 01/11/2013 Sulfa Drugs Cross Hives High 09/11/2008 Reactors documented as of this encounter (statuses as of 10/26/2018) Medications End Date Status Medication Sig Dispensed Refills Start Date Active PREMARIN 0.9 MG Take 0.9 mg 0 TABSIndications: by mouth Menopause syndrome daily. Active XANAX 0.5 MG Take 0.5 mg 0 TABSIndications: Anxiety by mouth nightly as needed for Sleep. Active venlafaxine (EFFEXOR XR) Take 75 mg by 0 75 MG XR capsule mouth daily. Take three 75 mg to total 225 mg daily Active buPROPion (WELLBUTRIN XL) Take 300 mg 0 300 MG XL tablet by mouth every morning. Active temazepam (RESTORIL) 30 Take 30 mg by 0 MG capsule mouth two times daily. Active Meth-Hyo-M Bl-Na Phos-Ph Take 118 mg 120 Cap 3 0 Daniel (URIBEL) 118 MG by mouth four 8 CAPSIndications: times daily. Recurrent UTI, Chronic interstitial cystitis Active estradiol (ESTRACE Place 1 g 42.5 g 3 01/19/ 01 VAGINAL) 0.1 MG/GM vaginally 3 8 vaginal creamIndications: times weekly. Vaginal atrophy Active omeprazole (PRILOSEC) 40 TAKE 1 90 Cap 1 0 MG capsuleIndications: CAPSULE BY 9 Encounter to establish MOUTH DAILY care with new doctor, Essential hypertension, benign, Dyslipidemia, History of coronary artery stent placement, Precordial pain, Nonspecific abnormal electrocardiogram (ECG) (EKG), ALONZO (obstructive sleep apnea), Increased BMI Active tramadol (ULTRAM) 50 MG TAKE 2 180 Tab 2 tablet TABLETS BY 9 MOUTH EVERY 8 HOURS NEEDED FOR PAIN Active albuterol 108 (90 base) Inhale 2 8.5 g 6 mcg/act inhaler Puffs by 9 mouth every 4 hours as needed for Wheezing. Active atorvastatin (LIPITOR) 40 TAKE 1 TABLET 90 Tab 0 MG tablet BY MOUTH 9 DAILY Active valsartan-hydrochlorothia Take 1 Tab by 90 Tab 0 201 zide (DIOVAN-HCT) mouth daily. 9 160-12.5 MG per tabletIndications: Essential hypertension, benign Active metoprolol (TOPROL-XL) 25 Take 1 Tab by 90 Tab 3 MG XL tabletIndications: mouth daily. 9 Coronary artery disease involving [place] coronary artery of [place] heart without angina pectoris Active hydrOXYzine (ATARAX) 25 TAKE 1 TABLET 30 Tab 0 MG tabletIndications: BY MOUTH AT 9 Recurrent UTI, Chronic BEDTIME interstitial cystitis Active naproxen (NAPROSYN) 500 Take 1 Tab by 60 Tab 2 MG tablet mouth 2 times 9 daily (with meals). Active baclofen (LIORESAL) 10 MG Take 1 Tab by 120 Tab 0 tablet mouth every 6 9 hours as needed. Active cyclobenzaprine Take 1 Tab by 30 Tab 1 10/19/19 1 (FLEXERIL) 10 MG tablet mouth 3 times 9 daily as needed for Muscle spasms. Active hydrocodone-acetaminophen Take 1 Tab by 120 Tab 0 (NORCO) 10-325 MG per mouth every 6 9 tablet hours as needed for Pain. documented as of this encounter (statuses as of 10/26/2018) Active Problems Problem Noted Date Vitamin D deficiency 02/03/2018 DCIS (ductal carcinoma in situ) of breast 04/17/2017 Family history of cancer 04/17/2017 Encounter for nonprocreative genetic counseling 04/2017 Voiding dysfunction 12/26/2016 Status post right knee replacement 09/18/2016 Arthritis of right knee 09/18/2016 OAB (overactive bladder) 08/27/2016 Postprocedural female urethral stricture 06/18/2016 Urge incontinence 06/18/2016 Dysuria 06/18/2016 Lower urinary tract symptoms (LUTS) 06/18/2016 Breast cancer, left 06/17/2016 Sensorineural hearing loss, unspecified 10/17/2015 Sensorineural hearing loss, unspecified 10/17/2015 Allergic rhinitis, cause unspecified 02/16/2014 Sensorineural hearing loss, asymmetrical 04/21/2013 GERD (gastroesophageal reflux disease) 03/21/2013 Open wound of ear drum, without mention of complicati on 01/11/2013 Otorrhea, unspecified 01/11/2013 DJD (degenerative joint disease) 11/21/2011 DJD (degenerative joint disease), lumbar 11/21/2011 Anemia, unspecified 10/23/2008 Hyperlipidemia 09/11/2008 Essential hypertension, benign 09/11/2008 Obesity 09/11/2008 Coronary artery disease 09/11/2008 Carpal tunnel syndrome 09/11/2008 Genital herpes in women 09/11/2008 Peptic ulcer disease 09/11/2008 Depression 09/11/2008 Recurrent UTI 09/11/2008 Chronic neck pain 09/11/2008 Chronic back pain 09/11/2008 Anxiety 09/11/2008 Menopause syndrome 09/11/2008 documented as of this encounter (statuses as of 10/26/2018) Resolved Problems Problem Noted Date Resolved Date Other malaise and fatigue 10/23/2008 11/30/2011 Diarrhea 09/27/2008 11/30/2011 Lip lesion 09/11/2008 11/30/2011 documented as of this encounter (statuses as of 10/26/2018) Immunizations Name Administration Dates Next Due Influenza (whole) 11/15/2015 Influenza Hd 11/19/2017 Influenza Quad-PF 12/01/2016 Influenza whole 11/15/2015 Pneumococcal 13-valent 08/23/2018 Conjugate Vaccine Pneumococcal 08/24/2018 Polysaccharide documented as of this encounter Social History Date Tobacco Use Types Packs/Day Years Used Never Smoker Smokeless Tobacco: Never Used Drinks/Week oz/Week Comments Alcohol Use 1 Standard drinks or equivalent 0.6 Yes Sex Assigned at Date Recorded Not on file Industry Job Start Date Occupation Not on file Not on file Not on file Travel End Travel History Travel Start No recent travel history available. documented as of this encounter Last Filed Vital Signs Reading Time Taken Comments Vital Sign 131/71 10/26/2018 8:10 AM CDT Blood Pressure 75 10/26/2018 8:10 AM CDT Pulse - - Temperature - - Respiratory Rate - - Oxygen Saturation - - Inhaled Oxygen Concentration 78.5 kg (173 lb) 10/26/2018 8:10 AM CDT Weight 149.9 cm (4' 11") 10/26/2018 8:10 AM CDT Height 34.94 10/26/2018 8:10 AM CDT Body Mass Index documented in this encounter Progress Notes * Bret Fuller MD - 10/26/2018 8:30 AM CDT Here today for f/u RE: Chief Complaint Patient presents with Pain HPI: Out of medicine, as not able to get the full script form my last order. Needs a paper script with therapy Otherwise doing well with PT. Starting bicycle. S/p TKA. VAS 8 ROS: No fever, chills, nightsweats. No weight loss. No bowel or bladder incontinence. No weakness or numbness. Mood good. Reviewed online prescribe activity database today. On temazepam from PCP. Disc ussed risk of opiaties + BZs NARX SCORES Narcotic 531 Sedative 520 Stimulant 000 Explanation and GuidanceOVERDOSE RISK SCORE 470 (Range 000-999) Wt Readings from Last 3 Encounters: 10/26/18 173 lb (78.5 kg) 09/15/18 164 lb (74.4 kg) 09/13/18 173 lb (78.5 kg) Temp Readings from Last 3 Encounters: 08/23/18 97 F (36.1 C) (Oral) 07/15/18 98.5 F (36.9 C) (Oral) 05/31/18 97.6 F (36.4 C) (Oral) BP Readings from Last 3 Encounters: 10/26/18 131/71 09/15/18 120/70 09/13/18 154/74 Pulse Readings from Last 3 Encounters: 10/26/18 75 09/15/18 66 09/13/18 83 NAD, pleasant and conversational . NC/AT, no Neck mass, no LAD Lungs; Respirations unlabored, equal. Abd: soft, nontender CV: warm, well perfused Ext: no edema. MSK: lateral joint line tenderness, ITB Imaging: loss of medial compartment. A/P: Encounter Diagnosis and Orders ICD-10-CM 1. Chronic radicular low back pain M54.16 G89.29 2. Primary osteoarthritis of both knees M17.0 Welches refill Pending surgery once cleared by cards. The medications continue to improve the patient's quality of life and daily func tion. Side effects are mild and tolerable. The patient certifies to me today th at all medications are being used only as prescribed. The patient is receiving no pain medications from other physicians and is not sharing medications with ot her persons. The patient denies use of any illegal substances. Bret Fuller M.D. PM&R Diagnostic/Interventional MSK ultrasound documented in this encounter Plan of Treatment Care Team Description Date Type Specialty Mahesh Esqueda MD [address] [place] [address] [phone] 10/28/2018 Office Visit Orthopedic Surgery Lucas Mcfarland MD 11/09/2018 Office Visit General Internal Me Donte Lennon MD [address] [place], [place] [id number] [phone] 12/22/2018 Office Visit Allergy Adrian Gallego MD [address] [facility] [address], [place] [address] [phone] 01/18/2019 Office Visit Urology Jasmina Toure Pft-Pft Tech 01/20/2019 Procedure Pulmonology Visit-Tech Performed Ricki Kong MD [address] [place], [place] [id number] 01/20/2019 Office Visit [facility] Health Maintenance Due Date Last Done Comments MEDICARE AWV 1952 TETANUS SHOT (ADULT) 06/07/2017 06/08/2007 OSTEOPOROSIS SCREENING 2017 06/17/2016 FLU VACCINE > 6 MONTHS 10/14/2018 11/19/2017, 08/2017, 12/01/2016, Additional history exists BMI FOLLOW UP PLAN 02/02/2019 02/02/2018 FALL SCREEN 09/14/2019 10/26/2018 MAMMOGRAM EVERY 2 YEARS 12/03/2019 12/02/2017 COLON CANCER SCREENIN07/14/2025 07/15/2015 COLONOSCOPY PREVNAR >= 65 (PCV13) Completed 08/23/2018, 08/14 PNEUMOVAX >=65 (PPSV23) Completed 08/24/2018 HEPATITIS C SCREENING Completed 10/13/2018, 09/15 documented as of this encounter Results Not on filedocumented in this encounter Visit Diagnoses Diagnosis Chronic radicular low back pain - Prima ry Thoracic or lumbosacral neuritis or rad iculitis, unspecified Primary osteoarthritis of both knees Primary localized osteoarthrosis, lower leg documented in this encounter Insurance Type Payer Benefit Subscriber ID Effective Phone Address Plan / Dates Group Medicare MEDICARE MEDICARE xxxxxxxxxxx 2018-P [address] [place] [id number] [place] [address] Medicare UNITED HEALTHCARE AARP xxxxxxxxxxx 2018-P [address] MEDICARE resent [id number] SUPPLEMENT [facility] [place] [place] [address] [phone] [place] (Home) [place] [address] documented as of this encounter Advance Directives Patient Spearer Explanation Type Date Recorded Advance Directives and Living Will Power of High School Learning Support Teacher
--- OUTSIDE RECORDS SUMMARY | 2019-08-18 20:05 | XMS REPORT | Summary of Care ---
Author Author [facility] Organization [facility] Address Unknown Phone Unavailable Care Team Providers Care Lapel Padder Name Role Phone cookdinner, [employer] 34 Lucas Mcfarland MD PCP Unavailable Reason for Referral * Radiology Services (Routine) Referred By Contact Referred To Contact Status Reason Specialty Diagnoses / Procedures Kalyn Leija MD [address] [place] [address] [place], Radiology [address] [facility] 1st [place] [address] Pending Radiology Diagnoses Bilateral hand pain P rocedures XR HAND BILATERAL (COMPLETE) * Radiology Services (Routine) Referred By Contact Referred To Contact Status Reason Specialty Diagnoses / Procedures Lucas Mcfarland MD [facility] [address] [facility] [address] [facility], [address] [place] [address] Pending Radiology Diagnoses Ductal carcinoma in situ (DCIS) of right breast P rocedures MAMMO DIAGNOSTIC BILAT (US/BIOP IF NEEDED) * Consult, Test & Treat (Routine) Referred By Contact Referred To Contact Status Reason Specialty Diagnoses / Procedures Lucas Mcfarland MD [facility] [address] [facility] [address] [place] [address] Pending Consult, Test, and Otolaryngology Diagnoses Treat History of tympanoplasty of right ear Drainage from right ear P rocedures [place] OFFICE OUTPATIENT NEW 30 MINUTES Reason for Visit * Reason Comments Establish Care * Consult, Test & Treat (Routine) Referred By Contact Referred To Contact Status Reason Specialty Diagnoses / Procedures Cyril Sanford MD [address] [place] [address] Kalyn Leija MD [address] [place] [address] Authorization Consult, Test, and Internal Diagnoses Not Needed Treat Medicine / Mixed General Internal hyperlipidemia Medicine Essential hypertension, benign Coronary artery disease involving [place] coronary artery of [place] heart without angina pectoris Est Care with Internal Med PCP/[address] Est Care with Internal Med PCP/[address] NPF Emailed Resident and Dr. Liss trejo [place] OFFICE OUTPATIENT NEW 30 MINUTES Encounter Details Care Team Description Date Type Department Lucas Mcfarland MD Establish Care 11/09/2018 Office Visit [facility] General Internal Medicine [address] [facility] 8th Floor; [address] [place] [address] Allergies Comments Active Allergy Reactions Severity Noted Date Bandaids Adhesive Tape Rash Low 01/11/2013 Psych - pt states that she feels like she's coming out of her skin Metoclopramide Hcl Anxiety, Medium 09/11/2008 Other (See Comments) Sulfa Antibiotics Hives High 01/11/2013 Sulfa Drugs Cross Hives High 09/11/2008 Reactors documented as of this encounter (statuses as of 11/09/2018) Medications End Date Status Medication Sig Dispensed [...] 40 TAKE 1 90 Cap 1 0 201 MG capsuleIndications: CAPSULE BY 9 Encounter to establish MOUTH DAILY care with new doctor, Essential hypertension, benign, Dyslipidemia, History of coronary artery stent placement, Precordial pain, Nonspecific abnormal electrocardiogram (ECG) (EKG), ALONZO (obstructive sleep apnea), Increased BMI Active albuterol 108 (90 base) Inhale 2 8.5 g 6 mcg/act inhaler Puffs by 9 mouth every 4 hours as needed for Wheezing. Active atorvastatin (LIPITOR) 40 TAKE 1 TABLET 90 Tab 0 MG tablet BY MOUTH 9 DAILY Active metoprolol (TOPROL-XL) 25 Take 1 Tab by 90 Tab 3 MG XL tabletIndications: mouth daily. 9 Coronary artery disease involving [place] coronary artery of [place] heart without angina pectoris Active hydrOXYzine (ATARAX) 25 TAKE 1 TABLET 30 Tab 0 MG tabletIndications: BY MOUTH AT 9 Recurrent UTI, Chronic BEDTIME interstitial cystitis Active naproxen (NAPROSYN) 500 Take 1 Tab by 60 Tab 2 MG tablet mouth 2 times 9 daily (with meals). Active hydrocodone-acetaminophen Take 1 Tab by 120 Tab 0 (NORCO) 10-325 MG per mouth every 6 9 tablet hours as needed for Pain. 11/14/2018 Active aspirin EC 325 MG tablet Take 325 mg 0 10/15 by mouth. 9 11/09/2018 Active Zoster Vac Recomb Inject 2 2 Each 0 11/10/19 1 Adjuvanted 50 MCG/0.5ML Doses into 9 SUSRIndications: Need for the muscle shingles vaccine once for 1 dose. IM: 0.5 mL administered as a 2-dose series at 0 and 2 to 6 months Active valsartan (DIOVAN) 160 MG Take 1 Tab by 90 Tab 3 tablet mouth daily. 9 Active spironolactone Take 1 Tab by 30 Tab 1 (ALDACTONE) 25 MG tablet mouth daily. 9 11/09/2018 Discontinued valsartan-hydrochlorothia Take 1 Tab by 90 Tab 0 zide (DIOVAN-HCT) mouth daily. 9 160-12.5 MG per tabletIndications: Essential hypertension, benign 11/09/2018 Discontinued valsartan (DIOVAN) 160 MG Take 1 Tab by 90 Tab 3 tablet mouth daily. 9 documented as of this encounter (statuses as of 11/09/2018) Active Problems Problem Noted Date Vitamin D [...] urinary tract symptoms (LUTS) 06/18/2016 Breast cancer, right 06/17/2016 Sensorineural hearing loss, unspecified 10/17/2015 Sensorineural [...] pain 09/11/2008 Anxiety 09/11/2008 Menopause syndrome 09/11/2008 Hypertension documented as of this encounter (statuses as of 11/09/2018) Resolved Problems Problem Noted Date Resolved Date Other malaise and fatigue 10/23/2008 11/30/2011 Diarrhea 09/27/2008 11/30/2011 Lip lesion 09/11/2008 11/30/2011 documented as of this encounter (statuses as of 11/09/2018) Immunizations Name Administration Dates Next Due Influenza (whole) 11/15/2015 Influenza Hd 11/19/2017 Influenza Quad-PF 12/01/2016 Influenza whole 11/15/2015 Pneumococcal 13-valent 08/23/2018 Conjugate Vaccine Pneumococcal 11/09/2018, 08/24/2018 Polysaccharide documented as of this encounter [...] Signs Reading Time Taken Comments Vital Sign 118/72 11/09/2018 1:09 PM CDT Blood Pressure 78 11/09/2018 1:09 PM CDT Pulse 37 C (98.6 F) 11/09/2018 1:09 PM CDT Temperature - - Respiratory Rate 98% 11/09/2018 1:09 PM CDT Oxygen Saturation - - Inhaled Oxygen Concentration 75.1 kg (165 lb 9.6 oz) 11/09/2018 1:09 PM CDT Weight 149.9 cm (4' 11") 11/09/2018 1:09 PM CDT Height 33.45 11/09/2018 1:09 PM CDT Body Mass Index documented in this encounter Patient Instructions * Patient Instructions* Lucas Mcfarland MD - 11/09/2018 1:00 PM CDT Women's Screening and Prevention Plan Activity Recommended Frequency Body Mass Index Annually Blood Pressure Check Annually Vision Check Every 2 years Breast Cancer Screening (Mammogram) Every 1-2 years Osteoporosis Screen (Bone Density) Every 2-5 years (based on result) Cholesterol Screening Annually Colorectal Screening: Stool Cards or Colonoscopy Annually Every 10 years Immunizations Influenza (Flu) Vaccine Pneumonia (each given once year apart) Prevnar Pneumovax Annually Once after age 65 Once after age 65 Your personalized health plan Health Maintenance Topic Date Due MEDICARE AWV 1950 TETANUS SHOT (ADULT) 06/07/2017 OSTEOPOROSIS SCREENING 2017 FLU VACCINE > 6 MONTHS 10/14/2018 BMI FOLLOW UP PLAN 02/02/2019 FALL SCREEN 10/29/2019 MAMMOGRAM EVERY 2 YEARS 12/03/2019 COLON CANCER SCREENING: COLONOSCOPY 07/14/2025 PREVNAR >= 65 (PCV13) Completed HEPATITIS C SCREENING Completed PNEUMOVAX >=65 (PPSV23) Completed Learning About Dietary Guidelines What are the Dietary Guidelines for Americans? Dietary Guidelines for Americans provide tips for eating well and staying health y. This helps reduce the risk for long-term (chronic) diseases. These adult guidelines from the [place] government recommend that you: ? Eat lots of fruits, vegetables, whole grains, and low-fat or nonfat dairy prod ucts. ? Try to balance your eating with your activity. This helps you stay at a health y weight. ? Drink alcohol in moderation, if at all. ? Limit foods high in salt, saturated fat, trans fat, and added sugar. What is MyPlate? MyPlate is the U.[place]. government's food guide. It can help you make your own well- balanced eating plan. A balanced eating plan means that you eat enough, but not too much, and that your food gives you the nutrients you need to stay healthy. MyPlate focuses on eating plenty of whole grains, fruits, and vegetables, and on limiting fat and sugar. It is available online at www.ChooseMyPlate.gov. How can you get started? MyPlate suggests that most adults eat certain amounts from the different food gr oups: Grains Eat 5 to 8 ounces of grains each day. Half of those should be whole grains. Mushtaq se whole-grain breads, cold and cooked cereals and grains, pasta (without creamy sauces), hard rolls, or low-fat or fat-free crackers. Vegetables Eat 2 to 3 cups of vegetables every day. They contain little if any fat. And the y have lots of nutrients that help protect against heart disease. Fruits Eat 1 to 2 cups of fruits every day. Fruits contain very little fat but lots o f nutrients. Protein foods Most adults need 5 to 6 ounces each day. Choose fish and lean poultry more oft en. Eat red meat and fried meats less often. Dried beans, tofu, and nuts are als o good sources of protein. Dairy Most adults need 3 cups of milk and milk products a day. Choose low-fat or fat-f ree products from this food group. If you have problems digesting milk, try eati ng cheese or yogurt instead. Limit fats and oils, including those used in cooking. When you do use fats, mushtaq se oils that are liquid at room temperature (unsaturated fats). These include ca marli oil and olive oil. Avoid foods with trans fats, such as many fried foods, c ookies, and snack foods. Where can you learn more? Go to [employer] and Enter D676 in the search box to learn more ab out "Learning About Dietary Guidelines." A visit with a licensed registered dietitian can provide a wealth of helpful inf ormation. Ask your doctor to place a referral or call [phone] for more inf ormation. [phone] Entitle. Care instructions adapted under license b y [facility]. This care instruction is for use with your license d healthcare professional. If you have questions about a medical condition or th is instruction, always ask your healthcare professional. [employer] d disclaims any warranty or liability for your use of this information. Content Version: 11.0.865576; Current as of: April 20, 2015 [facility] Advance Directives: Care Instructions Your Care Instructions An advance directive is a legal way to state your wishes at the end of your life . It tells your family and your doctor what to do if you can no longer say what you want. There are two main types of advance directives. You can change them any time solis t your wishes change. A living will tells your family and your doctor your wishes about life suppor t and other treatment. A durable power of employment attorney for health care lets you name a person to make tr eatment decisions for you when you can't speak for yourself. This person is call ed a health care agent. If you do not have an advance directive, decisions about your medical care may b e made by a doctor or a criminal court judge who doesn't know you. It may help to think of an advance directive as a gift to the people who care fo r you. If you have one, they won't have to make tough decisions by themselves. Follow-up care is a francisco part of your treatment and safety. Be sure to make and g o to all appointments, and call your doctor if you are having problems. It's als o a good idea to know your test results and keep a list of the medicines you kael e. How can you care for yourself at home? Discuss your wishes with your loved ones and your doctor. This way, there are no surprises. Many states have a unique form. Or you might use a universal form that has be en approved by many states. This kind of form can sometimes be completed and sto red online. Your electronic copy will then be available wherever you have a conn ection to the Internet. In most cases, doctors will respect your wishes even if you have a form from a different state. You don't need a tool and die machinist to do an advance directive. But you may want to get l egal advice. Think about these questions when you prepare an advance directive: ? Who do you want to make decisions about your medical care if you are not able to? Many people choose a family member or close friend. ? Do you know enough about life support methods that might be used? If not, talk to your doctor so you understand. ? What are you most afraid of that might happen? You might be afraid of having p ain, losing your independence, or being kept alive by machines. ? Where would you prefer to ? Choices include your home, a hospital, or a bhumi sing home. ? Would you like to have information about hospice care to support you and your family? ? Do you want to donate organs when you ? ? Do you want certain worship practices performed before you ? If so, put y our wishes in the advance directive. Read your advance directive every year, and make changes as needed. When should you call for help? Be sure to contact your doctor if you have any questions. Where can you learn more? Go to Boost My Ads.[email or web address]/[email or web address]/ Click on the magnifying glass tab, and enter R264 in the search box to learn alessandra jacobsen about "Advance Directives: Care Instructions." Current as of: December 19, 2016 Content Version: 01.20-2018 Entitle. Care instructions adapted under license b y [facility]. If you have questions about a medical condition or this instruction, always ask your healthcare professional. [employer] ated disclaims any warranty or liability for your use of this information. documented in this encounter Progress Notes * Kalyn Leija MD - 11/09/2018 1:00 PM CDT Teaching Physician Attestation I personally interviewed and examined the patient and I agree with the history, exam, assessment and plan as document by the resident. Discussed in today's visit are the following medical issues and below is delinea tess a brief summary of the plan (please see resident note for further details): Brief Assessment/Plan: # CAD s/p stent x 4 - on ASA, atorvastatin # ALONZO on CPAP # HTN, controlled but recurrent Hypokalemia - stop HCTZ given hypokalemia requir ing multiple infusions of potassium, will substitute spironolactone 25 mg instea d # CKD stage 3 - Creatinine of 1.37 # Left total Knee replacement - in September 2018, doing well post-op, doing PT # R TM perforation s/p tympanoplasty, persistent ear drainage - ENT needed # Anemia - new post-op - can repeat CBC on next visit # PCV13 completed, PPSV23 due today # History of R breast cancer - diagnostic mammogram # Rare BZD use - has been seeing a Dr. Daigle and uses rarely once monthly RTC in 11/23 or 11/[address] me and [address] Bartolo Leija MD Internal Medicine [facility] * Lucas Mcfarland MD - 11/09/2018 1:00 PM CDT Chief Complaint Patient presents with [facility] History of Present Illness: Ms. Vuong is a 68 y.o. year old female with complex medical history including HTN, HLD, CAD s/p PCI x 2 (4 stents placed, last one in ), depression, ALONZO on CPAP, CKD 3, and recent L TKA (10/13) who presents to [facility]. Re ceived PCV 13 on 08/23/18, was advised to return in 8 weeks for PPSV23 (requestin g today). Has been recovering and healing well post-operatively and is actively working with physical therapy. Started driving on Thursday. No complaints from solis t standpoint. History also notable for right tympanic membrane rupture in 2012 w/ concomitant sensorineural hearing loss after perforating with Q-Tip s/p R tympanoplasty 02/13 10/26. Noticed interval increase in right ear drainage (wet earwax consistency) w ithout any surrounding ear pain, tinnitus, or loss of balance. (+) right lumpect jennifer in 2007 for carcinoma in situ, last mammogram in 11/2017. Scheduled for allergy testing previously, mostly for itching along right side of face. Takes Benadryl PRN. Past Medical History: Diagnosis Date Antibiotic long-term use Asthma Bladder infection Breast cancer Carpal tunnel syndrome 2008 Coronary artery disease s/p stents X 4 Depression Genital herpes Head injury, unspecified Heart disease, unspecified High cholesterol Hyperlipidemia Hypertension Mass ALONZO (obstructive sleep apnea) 2008 - AHI 13.7, SpO2 rios 84% - HST done in 2017 - Respiratory event index (R EI)* of 8.9 events/ hour, and the supine BALWINDER was 19.5 events/ hour. The SpO2 nad ir was 82.0% Peptic ulcer disease PUD (peptic ulcer disease) 2006 2o to Plavix plus Ibuprofen Seasonal allergic rhinitis Sensorineural hearing loss, asymmetrical 04/21/2013 Unspecified essential hypertension Family History Problem Relation Name Age of Onset Cancer Mother Depression Mother Hearing Loss Mother Melanoma Mother Cancer Father Hearing Loss Father Melanoma Father Depression Sister Hearing Loss Sister Cancer Brother prostate Diabetes Brother Heart Problems Brother Hearing Loss Brother Prostate Cancer Brother Hypertension Sister Other (lewy body dementia) Sister Diabetes Maternal Aunt Diabetes Other Heart Disease Other High Blood Pressure Other Cancer Other Tuberculosis Other COPD Other Social History: Tobacco: She reports that she has never smoked. She has never used smokeless to bacco. Alcohol: She reports that she drinks about 0.6 oz of alcohol per week. Drug Use: She reports that she does not use drugs. Past Surgical History: Procedure Laterality Date HX ANGIOPLASTY 2007 cath X 2, total of 4 stents HX APPENDECTOMY HX BREAST SURGERY Right 2010 HX BUNIONECTOMY 1998 both feet HX CARDIAC CATHERIZATION Feb 20 Little blockage according to power brake rebuilder Dr. Hernandez HX CERVICAL FUSION HX HYSTERECTOMY, TOTAL ABDOMINAL 2000 prolonged surgery HX SINUS SURGERY HX SPINE SURGERY HX STENT/ANGIOPLASTY HX TONSILLECTOMY HX TONSILLECTOMY AND ADENOIDECTOMY HX TOTAL KNEE REPLACEMENT Right 09/18/2016 HX URETHRA SURGERY X3 Current Outpatient Medications on File Prior to Visit Medication Sig Dispense Refill albuterol 108 (90 base) mcg/act inhaler Inhale 2 Puffs by mouth every 4 hour s as needed for Wheezing. 8.5 g 6 aspirin EC 325 MG tablet Take 325 mg by mouth. atorvastatin (LIPITOR) 40 MG tablet TAKE 1 TABLET BY MOUTH DAILY 90 Tab 0 buPROPion (WELLBUTRIN XL) 300 MG XL tablet Take 300 mg by mouth every mornin g. estradiol (ESTRACE VAGINAL) 0.1 MG/GM vaginal cream Place 1 g vaginally 3 ti mes weekly. 42.5 g 3 hydrocodone-acetaminophen (NORCO) 10-325 MG per tablet Take 1 Tab by mouth e very 6 hours as needed for Pain. 120 Tab 0 hydrOXYzine (ATARAX) 25 MG tablet TAKE 1 TABLET BY MOUTH AT BEDTIME 30 Tab 0 Meth-Hyo-M Bl-Na Phos-Ph Daniel (URIBEL) 118 MG CAPS Take 118 mg by mouth four times daily. 120 Cap 3 metoprolol (TOPROL-XL) 25 MG XL tablet Take 1 Tab by mouth daily. 90 Tab 3 naproxen (NAPROSYN) 500 MG tablet Take 1 Tab by mouth 2 times daily (with me als). 60 Tab 2 omeprazole (PRILOSEC) 40 MG capsule TAKE 1 CAPSULE BY MOUTH DAILY 90 Cap 1 PREMARIN 0.9 MG TABS Take 0.9 mg by mouth daily. temazepam (RESTORIL) 30 MG capsule Take 30 mg by mouth two times daily. venlafaxine (EFFEXOR XR) 75 MG XR capsule Take 75 mg by mouth daily. Take th ree 75 mg to total 225 mg daily XANAX 0.5 MG TABS Take 0.5 mg by mouth nightly as needed for Sleep. No current facility-administered medications on file prior to visit. Review of Systems Constitutional: Negative for chills, fever, malaise/fatigue and weight loss. HENT: Positive for ear discharge. Negative for congestion, ear pain, hearing los s, sinus pain, sore throat and tinnitus. Eyes: Negative for blurred vision, double vision, photophobia and pain. Respiratory: Negative for cough, sputum production and shortness of breath. Cardiovascular: Negative for chest pain, palpitations and orthopnea. Gastrointestinal: Negative for abdominal pain, constipation, diarrhea, heartburn , nausea and vomiting. Genitourinary: Negative for dysuria, frequency, hematuria and urgency. Musculoskeletal: Negative for back pain, falls, myalgias and neck pain. Skin: Positive for itching. Negative for rash. Neurological: Negative for dizziness, loss of consciousness, weakness and headac hes. Psychiatric/Behavioral: Negative for depression. Vitals: 11/09/18 1309 BP: 118/72 BP Location: left arm Patient Position: Sitting Cuff Size: regular Pulse: 78 Temp: 98.6 F (37 C) TempSrc: Oral SpO2: 98% Weight: 165 lb 9.6 oz (75.1 kg) Height: 4' 11" (1.499 m) Body mass index is 33.45 kg/m. Physical Exam Constitutional: She is oriented to person, place, and time and well-developed, w ell-nourished, and in no distress. No distress. HENT: Head: Normocephalic and atraumatic. Nose: Nose normal. Mouth/Throat: Oropharynx is clear and moist. No oropharyngeal exudate. Right tympanic membrane appears retracted with small sliver of perforation along 5 o'clock area with some residual cerumen. Left tympanic membrane with positive light reflex and no effusions visualized. Eyes: Pupils are equal, round, and reactive to light. EOM are normal. No scleral icterus. Neck: Neck supple. No JVD present. Cardiovascular: Normal rate, regular rhythm and normal heart sounds. Exam reveal s no gallop and no friction rub. No murmur heard. Pulmonary/Chest: Effort normal and breath sounds normal. No respiratory distress . She has no wheezes. She has no rales. Abdominal: Soft. Bowel sounds are normal. She exhibits no distension. There is n o tenderness. There is no rebound and no guarding. Musculoskeletal: Normal range of motion. She exhibits no edema. Well-healed vertical incision scars along anterior portions of bilateral knees. Left knee is warm to touch, but not TTP. Lymphadenopathy: She has no cervical adenopathy. Neurological: She is alert and oriented to person, place, and time. Gait normal. Skin: Skin is warm and dry. No rash noted. No erythema. Psychiatric: Affect normal. Vitals reviewed. Assessment and Plan: Laura was seen today for establish care. Diagnoses and all orders for this visit: Need for vaccination against Streptococcus pneumoniae - PNEUMOCOCCAL POLYSACCHARIDE (PPSV23) History of tympanoplasty of right ear - AMB REF [facility] Mixed hyperlipidemia - LIPID PANEL - HEMOGLOBIN A1C Ductal carcinoma in situ (DCIS) of right breast - MAMMO DIAGNOSTIC BILAT (US/BIOP IF NEEDED); Future Essential hypertension, benign Class 1 obesity with serious comorbidity and body mass index (BMI) of 33.0 to 33 .9 in adult, unspecified obesity type - LIPID PANEL Coronary artery disease involving [place] coronary artery of [place] heart without angina pectoris - LIPID PANEL Malignant neoplasm of right female breast, unspecified estrogen receptor status, unspecified site of breast Drainage from right ear - AMB REF TO ENT [facility] Need for shingles vaccine - Zoster Vac Recomb Adjuvanted 50 MCG/0.5ML SUSR; Inject 2 Doses into the mu scle once for 1 dose. IM: 0.5 mL administered as a 2-dose series at 0 and 2 to 6 months Abnormal blood chemistry - LIPID PANEL - HEMOGLOBIN A1C Bilateral hand pain - XR HAND BILATERAL (COMPLETE); Future Other orders - Discontinue: valsartan (DIOVAN) 160 MG tablet; Take 1 Tab by mouth daily. - valsartan (DIOVAN) 160 MG tablet; Take 1 Tab by mouth daily. - spironolactone (ALDACTONE) 25 MG tablet; Take 1 Tab by mouth daily. #Vaccination History: previously with PCV 13 (08/23), will receive PPSV 23 today and get repeat PPSV 5 years from now (2023) - Requesting tetanus vaccine today, previously received in . Unfortuna tely, not currently available but will attempt to re-address at next clinic visi t. #HTN: medications revised above in the setting of her recurrent hypokalemia Patient seen and discussed with Dr. Leija. Please schedule follow-up on 11/23 o r 11/30 for annual visit. Lucas Mcfarland MD [facility] Internal Medicine PGY-2 11/09/2018 documented in this encounter Plan of Treatment Care Team Description Date Type Specialty Bret Fuller MD [address] [id number] 11/26/2018 Office Visit [facility] Rick Rose Jr., MD [address] [place] [address] [phone] 12/08/2018 Office Visit [facility] Re[facility] Mahesh Esqueda MD [address] [place], [place] [address] [phone] 12/13/2018 Office Visit Orthopedic Surgery Donte Grant MD [address] [place] [address] [phone] 12/22/2018 Office Visit Allergy Adrian Gallego MD [address], [place] [address] [phone] 01/18/2019 Office Visit Urology [place], [place] Pft-Pft Tech 01/20/2019 Procedure Pulmonology Visit-Tech Performed Ricki Kong MD [address] [facility] [address] [place] [address] [phone] 01/20/2019 Office Visit Sleep Center Order Schedule Name Type Priority Associated Diag noses Ordered: 11/09/2018 LIPID PANEL Lab Routine Mixed hyperlipi demia Class 1 obesity with serious comorbidity and body mass index (BMI) of 33.0 to 33.9 in adult, unspecified obesity type Coronary artery disease involving [place] coronary artery of [place] heart without angina pectoris Abnormal blood chemistry Ordered: 11/09/2018 HEMOGLOBIN A1C Lab Routine Mixed hyperlipi demia Abnormal blood chemistry Expected: 11/09/2018, Expires: 1 MAMMO DIAGNOSTIC BILAT Imaging Routine 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 1 Occurrences starting 11/09/2018 until 11/10/2019 XR HAND BILATERAL Imaging Routine Bilateral dias nd pain (COMPLETE) Order Schedule Name Type Priority Associated Diag noses Ordered: 11/09/2018 AMB REF TO ENT [facility] Outpatient Routine History of tympanoplasty Referral of right ear Drainage from right ear Health Maintenance Due Date Last Done Comments MEDICARE AWV 1950 TETANUS SHOT (ADULT) 06/07/2017 06/08/2007 OSTEOPOROSIS SCREENING 2017 06/17/2016 FLU VACCINE > 6 MONTHS 10/14/2018 11/19/2017, 08/2017, 12/01/2016, Additional history exists BMI FOLLOW UP PLAN 02/02/2019 02/02/2018 FALL SCREEN 11/10/2019 11/09/2018 MAMMOGRAM EVERY 2 YEARS 12/03/2019 12/02/2017 COLON CANCER SCREENIN07/14/2025 07/15/2015 COLONOSCOPY PREVNAR >= 65 (PCV13) Completed 08/23/2018, 08/14 PNEUMOVAX >=65 (PPSV23) Completed 08/24/2018 HEPATITIS C SCREENING Completed 10/13/2018, 09/15 documented as of this encounter Results Not on filedocumented in this encounter Visit Diagnoses Diagnosis Need for vaccination against Streptococ cus pneumoniae - Primary Need for prophylactic vaccination again st streptococcus pneumoniae (pneumococcus) History of tympanoplasty of right ear Mixed hyperlipidemia 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 Essential hypertension, benign Class 1 obesity with serious comorbidit y and body mass index (BMI) of 33.0 to 33.9 in adult, unspecified obesity type Coronary artery disease involving nativ [place] coronary artery of [place] heart without angina pectoris Malignant neoplasm of right female eligio st, unspecified estrogen receptor status, unspecified site of breast Drainage from right ear Otorrhea, unspecified Need for shingles vaccine Need for prophylactic vaccination and i noculation against varicella Abnormal blood chemistry Other abnormal blood chemistry Bilateral hand pain Pain in limb documented in this encounter Insurance Type Payer Benefit Subscriber ID Effective Phone Address Plan / Dates Group Medicare MEDICARE MEDICARE xxxxxxxxxxx 2018-P [address] resent [id number] [place] [address] Medicare UNITED HEALTHCARE AARP xxxxxxxxxxx 2018-P [address] MEDICARE resent [id number] SUPPLEMENT [facility] [place] [address] eve[place] (Home) [place] [address] documented as of this encounter Advance Directives Patient Product Blending Supervisor Explanation Type Date Recorded Advance Directives and Living Will Power of Commercial Construction Estimator
--- OUTSIDE RECORDS SUMMARY | 2019-08-18 20:05 | XMS REPORT | Summary of Care ---
Author Author [facility] Organization [facility] Address Unknown Phone Unavailable Care Team Providers Care Mineral Resources Inspector Name Role Phone [place], [employer] 34 [phone] Lucas Mcfarland MD PCP Unavailable Reason for Visit * Reason Comments Cerumen Impaction R. sided; previous surgical hx w/ Dr. Daniels. Hearing Loss * Consult, Test & Treat (Routine) Referred By Contact Referred To Contact Status Reason Specialty Diagnoses / Procedures Lucas Mcfarland MD Peng, Angela Shu-Yuen, MD [address] [place] [address] Authorization Consult, Test, and Otolaryngology Diagnoses Not Needed Treat History of tympanoplasty of right ear Drainage from right ear eardrum replacement years ago, build up of wax and red inside ear eardrum replacement years ago, build up of wax and red inside ear eardrum replacement years ago, build up of wax and red inside ear eardrum replacement years ago, build up of wax and red inside ear P rocedures AR OFFICE OUTPATIENT NEW 30 MINUTES Encounter Details Care Team Description Date Type Department Manju Mcfarland MD [address] [place] [address] [phone] Cerumen Impaction (R. sided; previous orozco rgical hx w/ Dr. Daniels. ); Hearing Loss 12/14/2018 Office Visit [facility] Otolaryngology [address] [place] [address] Allergies Comments Active Allergy Reactions Severity Noted Date Bandaids Adhesive Tape Rash Low 01/11/2013 Psych - pt states that she feels like she's coming out of her skin Metoclopramide Hcl Anxiety, Medium 09/11/2008 Other (See Comments) Sulfa Antibiotics Hives High 01/11/2013 Sulfa Drugs Cross Hives High 09/11/2008 Reactors documented as of this encounter (statuses as of 12/16/2018) Medications End Date Status Medication Sig Dispensed Refills Start Date Active PREMARIN 0.9 MG Take 0.9 mg 0 TABSIndications: by mouth Menopause syndrome daily. Active XANAX 0.5 MG Take 0.5 mg 0 TABSIndications: Anxiety by mouth nightly as needed for Sleep. Active venlafaxine (EFFEXOR XR) Take 75 mg by 0 150 MG XR capsule mouth daily. Take two tablets by mouth daily. Active buPROPion (WELLBUTRIN XL) Take 300 mg [...] (ESTRACE Place 1 g 42.5 g 3 01/19/04 16 VAGINAL) 0.1 MG/GM vaginally 3 8 vaginal creamIndications: times weekly. Vaginal atrophy Active albuterol 108 (90 base) Inhale 2 8.5 g 6 mcg/act inhaler Puffs by 9 mouth every 4 hours as needed for Wheezing. Active atorvastatin (LIPITOR) 40 TAKE 1 TABLET 90 Tab 0 201 MG tablet BY MOUTH 9 DAILY Active metoprolol (TOPROL-XL) 25 Take 1 Tab by 90 Tab 3 08/13/ MG XL tabletIndications: mouth daily. 9 Coronary artery disease involving [place] coronary artery of [place] heart without angina pectoris Active hydrOXYzine (ATARAX) 25 TAKE 1 TABLET 30 Tab 0 201 MG tabletIndications: BY MOUTH AT 9 Recurrent UTI, Chronic BEDTIME interstitial cystitis Active naproxen (NAPROSYN) 500 Take 1 Tab by 60 Tab 2 09/13/201 MG tablet mouth 2 times 9 daily (with meals). Active spironolactone Take 1 Tab by 30 Tab 1 (ALDACTONE) 25 MG tablet mouth daily. 9 Active hydrocodone-acetaminophen Take 1 Tab by 120 Tab 0 (NORCO) 10-325 MG per mouth every 6 9 tablet hours as needed for Pain. Active omeprazole (PRILOSEC) 40 TAKE 1 90 Cap 1 0 MG capsuleIndications: CAPSULE BY 9 Encounter to establish MOUTH DAILY care with new doctor, Essential hypertension, benign, Dyslipidemia, History of coronary artery stent placement, Precordial pain, Nonspecific abnormal electrocardiogram (ECG) (EKG), ALONZO (obstructive sleep apnea), Increased BMI Active valsartan-hydrochlorothia TAKE 1 TABLET 90 Tab 1 zide (DIOVAN-HCT) BY MOUTH 9 160-12.5 MG per DAILY tabletIndications: Essential hypertension, benign 12/14/2018 Discontinued valsartan (DIOVAN) 160 MG Take 1 Tab by 90 Tab 3 tablet mouth daily. 9 documented as of this encounter (statuses as of 12/16/2018) Active Problems Problem Noted Date Vitamin D [...] tract symptoms (LUTS) 06/18/2016 Breast cancer, right (HCCode) 06/17/2016 Sensorineural hearing loss, unspecified 10/17/2015 Sensorineural [...] as of this encounter (statuses as of 12/16/2018) Resolved Problems Problem Noted Date Resolved Date Other malaise and fatigue 10/23/2008 11/30/2011 Diarrhea 09/27/2008 11/30/2011 Lip lesion 09/11/2008 11/30/2011 documented as of this encounter (statuses as of 12/16/2018) Immunizations Name Administration Dates Next Due Influenza [...] Signs Reading Time Taken Comments Vital Sign 156/77 12/14/2018 4:02 PM CDT Blood Pressure 61 12/14/2018 4:02 PM CDT Pulse - - Temperature - - Respiratory Rate - - Oxygen Saturation - - Inhaled Oxygen Concentration 74.8 kg (165 lb) 12/14/2018 4:02 PM CDT Weight 149.9 cm (4' 11") 12/14/2018 4:02 PM CDT Height 33.33 12/14/2018 4:02 PM CDT Body Mass Index documented in this encounter Progress Notes * Manju Mcfarland MD - 12/14/2018 1:30 PM CDT Chief complaint(s)/Reason(s) for Consultation: Chief Complaint Patient presents with Cerumen Impaction R. sided; previous surgical hx w/ Dr. Daniels. Hearing Loss History of Present Illness: Ms. Laura Vuong is a 68 y.o. year old female presenting today for an evaluation of her ears. Patient had a right tympanoplasty with Dr. Daniels in 2 013 s/p right ear drum injury after laying down on a Q tip. She has always had wax accumulation/itching in the ear after the surgery, and recently, she was bandar luated by her primary team and noted to have erythema in the right ear. She has always noticed a decrease in hearing in her right ear after the injury. There is no vertigo symptoms currently. There is not relevant family history. Overal l she feels like her hearing has been decreasing. She did get hearing aids year s ago, but admits she does not use them regularly. Overall she also has issues with allergies and has tried taking benadryl without much relief. Past Medical History: Past Medical History: Diagnosis Date Antibiotic long-term use Asthma Bladder infection Breast cancer (HCCode) Carpal tunnel syndrome 2008 Coronary artery disease s/p stents X 4 Depression Genital herpes Head injury, unspecified Heart disease, unspecified High cholesterol Hyperlipidemia Hypertension Mass ALONZO (obstructive sleep apnea) 2008 - AHI 13.7, SpO2 rios 84% - HST done in 2018 - Respiratory event index (R EI)* of 8.9 events/ hour, and the supine BALWINDER was 19.5 events/ hour. The SpO2 nad ir was 82.0% Peptic ulcer disease PUD (peptic ulcer disease) 2006 2o to Plavix plus Ibuprofen Seasonal allergic rhinitis Sensorineural hearing loss, asymmetrical 04/21/2013 Unspecified essential hypertension Past Surgical History: Past Surgical History: Procedure Laterality Date HX ANGIOPLASTY 2007 cath X 2, total of 4 stents HX APPENDECTOMY HX BREAST SURGERY Right 2010 HX BUNIONECTOMY 1998 both feet HX CARDIAC CATHERIZATION Feb 20 Little blockage according to distribution center administrator Dr. Hernandez HX CERVICAL FUSION HX HYSTERECTOMY, TOTAL ABDOMINAL 2000 prolonged surgery HX SINUS SURGERY HX SPINE SURGERY HX STENT/ANGIOPLASTY HX TONSILLECTOMY HX TONSILLECTOMY AND ADENOIDECTOMY HX TOTAL KNEE REPLACEMENT Right 09/18/2016 HX URETHRA SURGERY X3 Allergies: Sulfa antibiotics; Sulfa drugs cross reactors; Reglan [metoclopramide hcl]; and Adhesive tape Medication: Current Outpatient Medications: albuterol 108 (90 base) mcg/act inhaler, Inhale 2 Puffs by mouth every 4 ho urs as needed for Wheezing., Disp: 8.5 g, Rfl: 6 atorvastatin (LIPITOR) 40 MG tablet, TAKE 1 TABLET BY MOUTH DAILY, Disp: 90 Tab, Rfl: 0 buPROPion (WELLBUTRIN XL) 300 MG XL tablet, Take 300 mg by mouth every morn ing., Disp: , Rfl: estradiol (ESTRACE VAGINAL) 0.1 MG/GM vaginal cream, Place 1 g vaginally 3 times weekly., Disp: 42.5 g, Rfl: 3 hydrocodone-acetaminophen (NORCO) 10-325 MG per tablet, Take 1 Tab by mouth every 6 hours as needed for Pain., Disp: 120 Tab, Rfl: 0 hydrOXYzine (ATARAX) 25 MG tablet, TAKE 1 TABLET BY MOUTH AT BEDTIME, Disp: 30 Tab, Rfl: 0 Meth-Hyo-M Bl-Na Phos-Ph Daniel (URIBEL) 118 MG CAPS, Take 118 mg by mouth fou r times daily., Disp: 120 Cap, Rfl: 3 metoprolol (TOPROL-XL) 25 MG XL tablet, Take 1 Tab by mouth daily., Disp: 9 0 Tab, Rfl: 3 naproxen (NAPROSYN) 500 MG tablet, Take 1 Tab by mouth 2 times daily (with meals)., Disp: 60 Tab, Rfl: 2 omeprazole (PRILOSEC) 40 MG capsule, TAKE 1 CAPSULE BY MOUTH DAILY, Disp: 9 0 Cap, Rfl: 1 PREMARIN 0.9 MG TABS, Take 0.9 mg by mouth daily., Disp: , Rfl: spironolactone (ALDACTONE) 25 MG tablet, Take 1 Tab by mouth daily., Disp: 30 Tab, Rfl: 1 temazepam (RESTORIL) 30 MG capsule, Take 30 mg by mouth two times daily., D isp: , Rfl: valsartan-hydrochlorothiazide (DIOVAN-HCT) 160-12.5 MG per tablet, TAKE 1 T ABLET BY MOUTH DAILY, Disp: 90 Tab, Rfl: 1 venlafaxine (EFFEXOR XR) 150 MG XR capsule, Take 75 mg by mouth daily. Take two tablets by mouth daily., Disp: , Rfl: XANAX 0.5 MG TABS, Take 0.5 mg by mouth nightly as needed for Sleep., Disp: , Rfl: Social History: Social History Tobacco Use Smoking status: Never Smoker Smokeless tobacco: Never Used Substance Use Topics Alcohol use: Yes Alcohol/week: 0.6 oz Types: 1 Standard drinks or equivalent per week Drug use: No Current/previous occupation: Family History: Family History Problem Relation Name Age of [...] Other Cancer Other Tuberculosis Other COPD Other Review of Systems: General: No fevers, chills, or weight loss. No fatigue. Vision: No recent acute vision changes, or eye pain HENT: See HPI Respiratory: No recent or acute dyspnea or hemoptysis. No cough or wheezing. Cardiovascular: No recent chest pain or palpitations. Gastrointestinal: No abdominal pain or melena. No recent diarrhea or constipatio n. No hematemesis. Genitourinary: No dysuria, incontinence, or hematuria. Musculoskeletal: No unexpected bone or joint pain or stiffness. Skin: No lesions, ulcers or rashes. No changes in moles. Hematologic: No abnormal bleeding or easy bruising. No anemia. Neurological: No recent seizures or paralysis, paresthesias, weakness, dysphagia , or memory loss. Physical Exam: Vital Signs: There were no vitals filed for this visit. General: Well-groomed, no acute distress. Strong voice. No appreciated stridor or stertor during the examination Head/face: Normocephalic. Normal facial tone. No parotid, preauricular, or subma ndibular masses or adenopathy.There is no tenderness to palpation. Facial stren gth and sensation are intact bilaterally, Brackman scale 1/6 bilaterally, symmet sean Eyes: Extraoccular movements are intact. There is no spontaneous or gaze induce d nystagmus. Pupils appear equally round and reactive to light. Ears: The auricles are well formed. Right ear: external auditory canal is clear and patent, without any lesions/defe cts or drainage. The tympanic membrane appears to be intact without any perfora tions. There is scarring/opacification in posterior drum, slightly retracted, b ut no pockets. There are post surgical changes, but no erythema/edema of the ea r drum. The middle ear appears to be well aerate without any fluid, mass or lesi on. Left ear: external auditory canal is clear and patent, without any lesions/defec ts or drainage. The tympanic membrane appears to be intact without any perforat ions or retraction pockets. The middle ear appears to be well aerate without an y fluid, mass or lesion. Nose/Nasopharynx: No lesions, masses, or discharge. The septum appears to be i ntact without any ulcerations. Boggy mucosa. Oral cavity/Oropharynx: No visible lesions, masses, exudate appreciate. Tongue is fully mobile and extends midline. Soft palate elevates symmetrically. Neck: Supple. No lymphadenopathy or masses. Full range of motion. Respiratory: Respirations unlabored. Chest rises symmetrically with inspiration Cardiovascular: Heart with regular rate and rhythm. Neurological: Awake, alert and oriented to person, time, and place. Face symmet sean, no tongue deviation, symmetric palatal elevation, no facial numbness, no fa cial weakness. Normal affect. Audio from 2016: Today's audio: Diagnosis: H/o right tympanoplasty, no signs of infection/erythema, bilateral sensorineural hearing loss, small conductive component in the right ear appropriate after gabrielle jim and prior trauma Plan of Care: I reassured her that today's exam is as expected, right ear is well healed, no s igns of infection, appropriate post surgical scarring/changed on the ear drum. She does report of subjective worsening hearing loss, prior history of bilateral sensorineural loss, recommend repeat audiogram today, appreciate Dr. Jimenez being able to see patient today for testing. Recommend mineral oil use PRN and avoid Q tip use! Follow up in 1 year for exam ination/cleaning. For her allergies, I would recommend trying a different OTC a ntihistamine such as claritin to help with the nasal drainage. Sincerely, Manju Mcfarland MD Otology, Neurotology, Skull Base Surgery Otolaryngology Head & Neck Surgery [facility] [phone] documented in this encounter Plan of Treatment Care Team Description Date Type Specialty Kalyn Leija MD [address] [place] [address] [phone] 12/22/2018 Office Visit General Internal Me Donte Lennon MD [address] [facility] [address] [place] [address] [phone] 12/22/2018 Office Visit Allergy Bret Fuller MD [address] [place] [address] 12/29/2018 Office Visit Physical Medicine a nd [place] Adrian Gallego MD [address] [facility] [address], [place] [address] [phone] 01/18/2019 Office Visit Urology [place], [place] Pft-Pft Tech 01/20/2019 Procedure Pulmonology Visit-Tech Performed Ruy Green NP [address] [place] [address] [phone] 01/20/2019 Office Visit Sleep Center Order Schedule Name Type Priority Associated Diag noses Ordered: 11/09/2018 AMB REF TO ENT [facility] Outpatient Routine History of tympanoplasty Referral of [...] PREVNAR >= 65 (PCV13) Completed 08/23/2018, 08/14 HEPATITIS C SCREENING Completed 10/13/2018, 09/15 PNEUMOVAX >=65 (PPSV23) Completed 11/09/2018, documented as of this encounter Results Not on filedocumented in this encounter Visit Diagnoses Diagnosis Non-seasonal allergic rhinitis, unspeci fied trigger - Primary Sensorineural hearing loss (SNHL) of ri ght ear with restricted hearing of left ear History of tympanoplasty of right ear documented in this encounter Insurance Type Payer Benefit Subscriber ID Effective Phone Address Plan / Dates Group Medicare MEDICARE MEDICARE xxxxxxxxxxx 2018-P [address] resent [id number] [place] [address] Medicare UNITED HEALTHCARE AARP xxxxxxxxxxx 2018-P [address] MEDICARE resent [id number] [facility] [phone] documented as of this encounter Advance Directives Patient Database Management System Specialist Explanation Type Date Recorded Advance Directives and Living Will Power of Stemhole Borer
--- OUTSIDE RECORDS SUMMARY | 2019-08-18 20:05 | XMS REPORT | Summary of Care ---
Author Author [facility] Organization [facility] Address Unknown Phone Unavailable Care Team Providers Care Plate Washer Name Role Phone [employer], [employer] 34 [phone] Reason for Visit * Reason Comments Post-op Follow-up Encounter Details Care Team Description Date Type Department Mahesh Esqueda MD [address] [place] [address] Post-op Follow-up 10/28/2018 Office Visit [facility] Orthopedic Surgery [address] [facility], [place] [address] Allergies Comments Active Allergy Reactions Severity Noted Date Bandaids Adhesive Tape Rash Low 01/11/2013 Psych - pt states that she feels like she's coming out of her skin Metoclopramide Hcl Anxiety, Medium 09/11/2008 Other (See Comments) Sulfa Antibiotics Hives High 01/11/2013 Sulfa Drugs Cross Hives High 09/11/2008 Reactors documented as of this encounter (statuses as of 10/28/2018) Medications End Date Status Medication Sig Dispensed [...] mouth daily. 9 Coronary artery disease involving [place] coronary artery of nikol[place] heart without angina pectoris Active hydrOXYzine (ATARAX) [...] 325 mg 0 10/15 by mouth. 9 Active meloxicam (MOBIC) 15 MG TK 1 T PO D 0 tablet 9 documented as of this encounter (statuses as of 10/28/2018) Active Problems Problem Noted Date Vitamin D [...] as of this encounter (statuses as of 10/28/2018) Resolved Problems Problem Noted Date Resolved Date Other malaise and fatigue 10/23/2008 11/30/2011 Diarrhea 09/27/2008 11/30/2011 Lip lesion 09/11/2008 11/30/2011 documented as of this encounter (statuses as of 10/28/2018) Immunizations Name Administration Dates Next Due Influenza [...] Signs Reading Time Taken Comments Vital Sign - - Blood Pressure - - Pulse - - Temperature - - Respiratory Rate - - Oxygen Saturation - - Inhaled Oxygen Concentration 78.5 kg (173 lb) 10/28/2018 11:08 AM CDT Weight 149.9 cm (4' 11") 10/28/2018 11:08 AM CDT Height 34.94 10/28/2018 11:08 AM CDT Body Mass Index documented in this encounter Progress Notes * Mahesh Esqueda MD - 10/28/2018 11:00 AM CDT History of present illness: The patient returns for a postop check. She is now 2 weeks status post left total knee arthroplasty with Aquilino robotic assistance. She is doing extremely well. She is ambulating without supportive devices. She is making excellent progress with physical therapy. Her pain is well-controlle d. She is weaning off of the Ira. She denies any calf tenderness chest pain or shortness of breath. Physical examination: Her surgical incision is healing well. Her range of motio n is from 0-120. Her patella tracks centrally. She is neurovascularly intact distally. Homans sign is negative. Impression: Doing very well 2 weeks following left knee Aquilino plasty. Recommendations: At this point, the patient should continue to progress with her activities and therapy as tolerated. She should return for a recheck with x-ra ys in 4-5 weeks. I also referred her to see Dr. Whitaker for evaluation of her thum b pain. All of her questions were answered today. documented in this encounter Plan of Treatment Care Team Description Date Type Specialty Lucas Mcfarland MD 11/09/2018 Office Visit General Internal Me Bret Ruffin MD [address] [place] [address] [phone] 11/26/2018 Office Visit Physical Medicine a nd Rehab Mahesh Esqueda MD [address] [place] [address] [phone] 12/13/2018 Office Visit Orthopedic Surgery Donte Garnt MD [address] [facility] [address] [place] [address] [phone] 12/22/2018 Office Visit Allergy Adrian Gallego MD [address] [facility] [address], [place] [address] [phone] 01/18/2019 Office Visit Urology [place] Pft-Pft [place] 01/20/2019 Procedure Pulmonology Visit-Tech Performed Ricki Kong MD [address] [facility] [address] [place] [address] [phone] 01/20/2019 Office Visit Sleep Center Health Maintenance Due Date Last Done Comments MEDICARE AWV 1950 TETANUS SHOT (ADULT) 06/07/2017 06/08/2007 OSTEOPOROSIS SCREENING 2017 06/17/2016 FLU VACCINE > 6 MONTHS 10/14/2018 11/19/2017, 08/2017, 12/01/2016, Additional history exists BMI FOLLOW UP PLAN 02/02/2019 02/02/2018 FALL SCREEN 10/27/2019 10/28/2018 MAMMOGRAM EVERY 2 YEARS 12/03/2019 12/02/2017 COLON CANCER SCREENIN07/14/2025 07/15/2015 COLONOSCOPY PREVNAR >= 65 (PCV13) Completed 08/23/2018, 08/14 PNEUMOVAX >=65 (PPSV23) Completed 08/24/2018 HEPATITIS C SCREENING Completed 10/13/2018, 09/15 documented as of this encounter Results Not on filedocumented in this encounter Visit Diagnoses Diagnosis Aftercare following left knee joint rep lacement surgery - Primary documented in this encounter Insurance Type Payer Benefit Subscriber ID Effective Phone Address Plan / Dates Group Medicare MEDICARE MEDICARE xxxxxxxxxxx 2018-P [address] resent [id number] [place] [address] Medicare UNITED HEALTHCARE AARP xxxxxxxxxxx 2018-P [address] MEDICARE resent [id number] [facility] [place] [address] [phone] (Home) [place] [address] documented as of this encounter Advance Directives Patient Residential Team Leader Explanation Type Date Recorded Advance Directives and Living Will Power of Sat Math Tutor
--- OUTSIDE RECORDS SUMMARY | 2019-08-18 20:05 | XMS REPORT | Continuity of Care Document ---
Author Author [facility] t Organization [facility] Address [address] [place] [address] Phone Unavailable Care Team Providers Care Drug Enforcement Administration Agent Name Role Phone Asked, Pcp No PCP Unavailable Herbert OLIVEIRA Attphys Unavailable Liss COOK, Kalyn Attphys Farzana COOK, Janna Martínez Attphys Shay COOK, Ewa Joseph Attphys Norma FURNITURE FINISHER, Holland Redmond Attphys Milton COOK, Manuel Cabrera Attphys C-Arm, Siemens Pmr Attphys Alina COOK, Herbert Queen Attphys Karyn COOK, Dylon Attphys Liss COOK, Kalyn Attphys Bartolo COOK, Randy Nunes Attphys Yin COOK, Mahesh Attphys Alina COOK, Anai Queen Attphys Bartolo COOK, Lucas Attphys Unavailable Mike GARCIA, Sophia Gonzalez Attphys MICAELA BRISENO Attphys Unavailable Yin COOK, Micaela Aragon Attphys Tevin COOK, Anai Alber Attphys [address] Room [facility] Attphys Unavailable SHARAD RIOJAS Attphys Unavailable MICAELA BRISENO Admphys Unavailable BEULAHSHARAD Admphys Unavailable Payers Payer Name Policy Type Policy Number Effective Date Expiration Date Herbert carbajal MEDICAREMEDICARE A BxxxxxxxxxxxMedicare xxxxxxxxxxx [facility] MCR SUPPLEMENT/INDIVIDUALAARP/[facility]xxxxxxxxxxxMediga p xxxxxxxxxxx [facility] Problems Condition Name Condition Details Condition Category Status Onset Date Resolution Date Last Treatment Date Treating Clinician Comments Source Arthritis Arthritis Disease Active 2018-10-13 00:00:00 [facility] Arthritis of right knee Arthritis of right knee Disease Active 2016-09-18 00:00:00 [facility] Status post right knee replacement Status post right knee replac ement Disease Active 2016-09-18 00:00:00 [facility] Allergies, Adverse Reactions, Alerts Allergy Name Allergy Type Status Severity Reaction(s) Onset Date Inacti ve Date Treating Clinician Comments Source Metoclopramide Hcl Propensity to adverse reactions Active Other (See Comments) 2016-09-10 00:00:00 "coming out of skin" [facility] Sulfa (Sulfonamide Antibiotics) Propensity to adverse reactions Activ e Hives 2016-09-10 00:00:00 [facility] Adhesive Tape Propensity to adverse reactions Active Rash 2013-01-11 00:00:00 [facility] Social History Social Habit Start Date Stop Date Quantity Comments Source Sex Assigned At [facility] Smoking Status Start Date Stop Date Source Never smoker [facility] Medications Ordered Medication Name Filled Medication Name Start Date Stop Da te Current Medication? Ordering Clinician Indication Dosage Frequency Signature (SIG) Comments Components Source ALPRAZolam (XANAX) 0.5 MG tablet 2019-05-25 13:07:44 Yes .5mg Take 0.5 mg by mouth every night as needed for Anxiety. [facility] traMADoL (ULTRAM) 50 mg tablet 2019-05-25 13:07:44 Yes 50mg Take 50 mg by mouth every 6 (six) hours as needed for Pain. [facility] clotrimazole (LOTRIMIN) 1 % cream 2019-05-25 13:07:43 Yes Q.5D Apply topically 2 (two) times daily. [facility] HYDROcodone-acetaminophen (NORCO 10-325) 10-325 mg per table t 2019-05-25 13:07:43 Yes 1{tbl} Take 1 tab let by mouth every 6 (six) hours as needed for Pain. [facility] estrogens, conjugated, (PREMARIN) 0.9 MG tablet 2019-05-25 13:07 :43 Yes .9mg QD Take 0.9 mg by mouth daily for 21 days then do n ot take for 7 days. . [facility] omeprazole (PRILOSEC) 40 MG capsule 2019-05-25 13:07:43 Yes 40mg QD Take 40 mg by mouth daily. [facility] kaylies-phsal-hyo 118-10-40.8-36 mg Cap 2 13:07:43 Yes Take by mouth. [facility] spironolactone (ALDACTONE) 50 MG tablet 2019-05-25 13:07:43 Yes 50mg QD Take 50 mg by mouth daily. [facility] valACYclovir (VALTREX) 500 MG tablet 2019-05-25 13:07:43 Ye s 500mg Take 500 mg by mouth. [facility] DULoxetine (CYMBALTA) 60 MG capsule 2019-05-25 13:07:42 Yes 60mg QD Take 60 mg by mouth daily. [facility] doxycycline (VIBRAMYCIN) 100 MG capsule 2019-05-25 13:07:42 Yes 100mg Q.5D Take 100 mg by mouth 2 (two) times daily. [facility] venlafaxine (EFFEXOR-XR) 75 MG 24 hr capsule 12:59:49 2019-05-25 00:00:00 No 300mg QD Take 300 mg by mouth daily . [facility] omeprazole (PRILOSEC) 40 MG capsule 2019-05-25 12:58:1 9 2019-05-25 00:00:00 No 40mg QD Take 40 mg by mouth daily. [facility] cyclobenzaprine (FLEXERIL) 10 MG tablet 12:57:50 2019-05-25 00:00:00 No 10mg Take 10 mg by mouth 2 (two) times daily as needed for Muscle spasms. [facility] cyclobenzaprine (FEXMID) 7.5 MG tablet 2019-05-15 1 12:57:39 2019-05-25 00:00:00 No 7.5mg Take 7.5 mg by mouth 2 (two) times daily as needed for Muscle spasms. [facility] buPROPion (WELLBUTRIN XL) 300 MG 24 hr tablet 20 02-06-10 12:57:23 2019-05-25 00:00:00 No 300mg QD Take 300 mg by mouth daily. [facility] atorvastatin (LIPITOR) 40 MG tablet 2019-05-25 12:57:1 2 2019-05-25 00:00:00 No 40mg QD Take 40 mg by mouth nightly. [facility] ALPRAZolam (XANAX) 0.5 MG tablet 2019-05-25 12:56:44 2019-05 00:00:00 No .5mg Take 0.5 mg by mouth every night as needed for Anxiety. [facility] mupirocin (BACTROBAN) 2 % ointment 2019-05-25 00:00:00 202 23:59:00 No 1g Q.[id number] Apply 1 g topically 3 (three) times daily for 7 days. [facility] aspirin 325 MG EC tablet 2018-10-15 00:00:00 2018-11-14 23:59:00 No 325mg QD Take 1 tablet (325 mg total) by mouth daily for 30 days. [facility] meloxicam (MOBIC) 15 MG tablet 2018-10-14 00:00:00 2018-11-13 23 :59:00 No 15mg QD Take 1 tablet (15 mg total) by mouth daily for 30 days . [facility] HYDROcodone-acetaminophen (NORCO 10-325) 10-325 mg per table t 2018-10-14 00:00:00 2018-10-24 23:59:00 No 1{tbl} Take 1-2 tablets by mouth every 4 (four) hours as needed for Pain for up to 10 days. Max Daily Amount: 12 tablets [facility] albuterol HFA (PROVENTIL HFA) 90 mcg/actuation inhaler 2018-07-15 00:00:00 Yes 180ug Take 180 mcg by mouth every 6 (six) hour s as needed . [facility] PROAIR HFA 90 mcg/actuation inhaler 2018-07-15 00:00:0 0 2019-05-25 00:00:00 No INHALE 2 PUFFS PO Q 4 H PRF WHEEZINF [facility] HYDROcodone-acetaminophen (NORCO 10-325) 10-325 mg per table t 2018-07-15 00:00:00 2018-10-14 00:00:00 No TK 1 T PO Q 6 H PRF PAIN [facility] estradiol (ESTRACE) 0.01 % (0.1 mg/gram) vaginal cream 2018-01-19 00:00:[address] 1 g vaginally as needed . [facility] valsartan-hydrochlorothiazide (DIOVAN HCT) 160-12.5 mg per t ablet 2016-09-10 11:27:47 Yes 1{tbl} QD Take 1 tablet by mouth daily. [facility] temazepam (RESTORIL) 30 mg capsule 2016-09-10 11:26:50 Yes 30mg Take 30 mg by mouth every night as needed for Sleep Takes 2 tablets . [facility] metoprolol (LOPRESSOR) 25 MG tablet 2016-09-10 11:26:50 Yes 25mg QD Take 25 mg by mouth daily. [facility] Vital Signs Vital Name Observation Time Observation Value Comments Source Systolic blood pressure 2019-05-25 14:25:00 155 mm[Hg] [facility] Diastolic blood pressure 2019-05-25 14:25:00 77 mm[Hg] [facility] Heart rate 2019-05-25 14:25:00 70 /min [facility] Body temperature 2019-05-25 14:25:00 36.33 Zina [facility] Respiratory rate 2019-05-25 14:25:00 20 /min [facility] Body height 2019-05-25 12:53:00 147.3 cm [facility] Body weight Measured 2019-05-25 12:53:00 77.111 kg [facility] BMI 2019-05-25 12:53:00 35.53 kg/m2 [facility] Oxygen saturation in Arterial blood by Pulse oximetry 05-24 12:53:00 99 /min [facility] Procedures Procedure Date / Time Performed Performing Clinician Sour e XR SPINE LUMBAR COMPLETE MIN 4 VIEWS 2018-11-09 16:13:00 Bret Fuller [facility] XR HAND 3 VIEWS LEFT 2018-11-09 16:02:00 Bret Fuller [facility] RHYTHM STRIP - SCAN 2018-10-18 08:00:18 Provider, Default Scanni [facility] TRANSFUSION SERVICE REPORT - SCAN 2018-10-14 17:53:18 Provid er, Default Scanning [facility] HEMOGLOBIN AND HEMATOCRIT 2018-10-14 04:48:00 Jude Dietrich [facility] BASIC METABOLIC PANEL (7) 2018-10-14 04:48:00 Aarti Carlos Ma [facility] HEPATITIS PANEL, ACUTE 2018-10-13 21:29:00 Jude Dietrich [facility] HIV-1 ANTIGEN WITH HIV-1/2 ANTIBODY 2018-10-13 21:29:00 Mesfin Dietrich [facility] XR KNEE LEFT 1 OR 2 VIEWS 2018-10-13 18:27:00 Jude Dietrich [facility] TISSUE EXAM 2018-10-13 17:11:00 Mahesh Briseno [facility] MAKOPLASTY,KNEE 2018-10-13 15:30:00 Mahesh Briseno [facility] PROCEDURE W/ BILLY ROBOT 2018-10-13 15:30:00 Mahesh Briseno ugustus [facility] GA AN PERINEURAL CATH - NO CHARGE 2018-10-13 15:18:08 [facility] ANESTHESIA SPINAL BLOCK 2018-10-13 15:17:27 [facility] TYPE AND SCREEN, AUTOMATED 2018-10-13 11:40:[address] Jude Dietrich [facility] CT LOWER EXTREMITY WITHOUT IV CONTRAST LEFT 2018-08-24 15:00 :00 Mahesh Briseno [facility] Plan of Care Planned Activity Planned Date Details Comments Source Future Scheduled Test 2019-10-15 00:00:00 INFLUENZA VACCINE [code = INFLUENZA VACCINE] [facility] Scheduled Test 2018-09-14 00:00:00 MEDICARE ANNUAL WE LLNESS (YEAR 2 or FIRST YEAR if no IPPE) [code = MEDICARE ANNUAL WELLNESS (YEAR 2 or FIRST YEAR if no IPPE)] [facility] Future Scheduled Test 2017 00:00:00 65+ PNEUMOCOCCAL V ACCINE (1 of 2 - PCV13) [code = 65+ PNEUMOCOCCAL VACCINE (1 of 2 - PCV13)] [facility] Scheduled Test 2002 00:00:00 BREAST CANCER SCRE ENING [code = BREAST CANCER SCREENING] [facility] Future Scheduled Test 2002 00:00:00 COLONOSCOPY SCREEN ING [code = COLONOSCOPY SCREENING] [facility] Scheduled Test 2002 00:00:00 SHINGLES VACCINES (#1) [code = SHINGLES VACCINES (#1)] [facility] Scheduled Test 1950 00:00:00 BREAST CANCER SCRE ENING [code = BREAST CANCER SCREENING] [facility] Future Scheduled Test 1952 00:00:00 COLON CANCER SCREE CHAPO COLONOSCOPY [code = COLON CANCER SCREENING COLONOSCOPY] [facility] Encounters Start Date/Time End Date/Time Encounter Type [facility] Care Department Encounter ID Source 2019-05-25 10:28:53 2019-05-25 16:17:56 Office Visit Kalyn Herndon [facility] [id number] 2019-05-23 11:15:18 2019-05-23 16:33:45 Office Visit Kalyn Herndon [facility] [id number] 2019-05-20 14:06:00 2019-05-20 14:36:00 Office Visit Jake Llamas [facility] [id number] 2019-01-20 15:10:03 2019-01-20 15:40:03 Office Visit Jake Llamas [facility] [id number] 2019-01-20 12:45:04 2019-01-20 14:45:28 Office Visit Ruy Hazel [facility] [id number] 2019-01-11 10:27:16 2019-01-11 10:57:16 Office Visit Rick Faria C-Arm, Pmr Siemens [facility] [id number] 2018-12-29 09:54:08 2018-12-29 10:51:55 Office Visit Jake Llamas [facility] [id number] 2018-12-29 09:13:13 2018-12-29 10:09:42 Office Visit Bret Steven [facility] [id number] 2018-12-24 10:51:57 2018-12-24 11:51:57 Office Visit KarynJaz anuel [facility] [id number] 2018-12-22 08:58:03 2018-12-22 13:18:37 Office Visit Kalyn Herndon [facility] [id number] 2018-12-14 13:48:24 2018-12-14 16:02:38 Office Visit Manju Mcfarland [facility] [id number] 2018-12-13 11:11:55 2018-12-13 12:31:27 Office Visit Mahesh Martinez [facility] [id number] 2018-11-09 12:53:02 2018-11-09 16:50:51 Office Visit Lucas Mcfarland [facility] [id number] 2018-11-09 11:43:54 2018-11-09 12:23:24 Office Visit Bret Steven [facility] [id number] 2018-10-28 10:56:20 2018-10-28 11:46:36 Office Visit Mahesh Martinez [facility] [id number] 2018-10-26 08:01:35 2018-10-26 08:16:35 Office Visit Bret Steven [facility] [id number] Results Test Description Test Time Test Comments Results Result Comments Source CT CHEST W 2019-08-18 18:01:00 [facility] [address] [address] Patient Name: TONY WILCOX MR #: [id number] : 1950 Age/Sex: 68/F Req #: [id number] Adm Physician: Ordered by: HAMZAH OLIVEIRA DO Report #: [id number] Location: ER Room/Bed: Procedure: [id number] CT/CT CHEST W Exam Date: 08/18/19 Exam Time: 1644 REPORT STATUS: Signed EXAM: CT Chest WITH contrast 08/18/2019 4:44 PM INDICATION: Pain. Dyspnea. COMPARISON: None TECHNIQUE: Chest was scanned utilizing a multidetector helical scanner from the lung apex through the level of the adrenal glands without administration of IV contrast. Coronal and sagittal reformations were obtained. Pulmonary embolism protocol was performed. IV CONTRAST: 100 cc Isovue 300 RADIATION DOSE: Total DLP: 510.97 mGy*cm Estimated effective dose: (DLP x 0.014 x size factor) mSv COMPLICATIONS: None FINDINGS: LINES/ TUBES: None. LUNGS AND AIRWAYS: Lingular subsegmental atelectasis. No filling defects to the segmental level. Airways are normal. PLEURA: The pleural spaces are clear. HEART AND MEDIASTINUM: The thyroid gland is normal. No mediastinal, hilar or axillary lymphadenopathy. The heart is normal in size.. There is no pericardial effusion. Mild coronary artery calcifications. UPPER ABDOMEN: Limited non-contrast views of the upper abdomen show hepatic steatosis. The adrenal glands are normal. Large, 6.0 cm cyst exophytic of the posterior lower interpolar region of the left kidney. Atherosclerotic calcifications of the abdominal aorta. BONES: Surgical fusions of the lower cervical spine partially visualized. Mild spondylosis of the thoracic spine. SOFT TISSUES: Bilateral nodular breast tissue is a nonspecific finding not completely evaluated with this examination. Correlate with appropriate breast imaging exam. IMPRESSION: Lingular subsegmental atelectasis. Otherwise no acute abnormality. Signed by: Dr. Elsy Bailey M.D. on 08/18/2019 6:09 PM Dictated By: EZEQUIEL BAILEY MD, MD 08 Transcribed By: HAKEEM on 08/18/191808 COPY TO: HAMZAH OLIVEIRA DO CHEST SINGLE (PORTABLE) 2019-08-18 17:54:[address] [address] Patient Name: TONY WILCOX MR #: [id number] : 1950 Age/Sex: 68/F Req #: [id number] Adm Physician: Ordered by: HAMZAH OLIVEIRA DO Report #: [id number] Location: ER Room/Bed: Procedure: [id number] DX/CHEST SINGLE (PORTABLE) Exam Date: 08/18/19 Exam Time: 1647 REPORT STATUS: Signed EXAMINATION: CHEST SINGLE (PORTABLE) INDICATION: Dyspnea. COMPARISON: None FINDINGS: TUBES and LINES: None. LUNGS: Left basilar platelike atelectasis. There is no evidence of pneumonia or pulmonary edema. PLEURA: No pleural effusion or pneumothorax. HEART AND MEDIASTINUM: The cardiomediastinal silhouette is unremarkable. BONES AND SOFT TISSUES: No acute osseous lesion. Soft tissues are unremarkable. UPPER ABDOMEN: No free air under the diaphragm. IMPRESSION: No acute thoracic abnormality. Signed by: Dr. Elsy Bailey M.D. on 08/18/2019 5:55 PM Dictated By: EZEQUIEL BAILEY MD, MD 54 Transcribed By: HAKEEM on 08/18/191754 COPY TO: HAMZAH OLIVEIRA DO RAD, HAND, 3 VIEWS, RIGHT 2018-11-09 16:21:00 Reason for Exa m:->Chronic radicular low back pain Bilateral hand pain FINAL REPORT Bilateral hand three - views HISTORY: Pain. COMPARISON: None FINDINGS:No displaced fracture. Osseous alignment is within normal limits.Mild degenerative osteoarthrosis of multiple bilateral DIP joints consisting of slight joint space narrowing, minimal subchondral sclerosis, a small marginal osteophytes, particularly involving the first distal interphalangeal joint bilaterally, right greater than left. 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 Signed: Ulises Bailey Verified Date/Time: 11/09/2018 16:21:26 Reading Location: [facility] Reading Room [address] [place] [address] , HAND, 3 VIEWS, LEFT 2018-11-09 16:21:00 Reason for Exam :->Chronic radicular low back pain Bilateral hand pain FINAL REPORT Bilateral hand three - views HISTORY: Pain. COMPARISON: None FINDINGS:No displaced fracture. Osseous alignment is within normal limits.Mild degenerative osteoarthrosis of multiple bilateral DIP joints consisting of slight joint space narrowing, minimal subchondral sclerosis, a small marginal osteophytes, particularly involving the first distal interphalangeal joint bilaterally, right greater than left. 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 Signed: Ulises Bailey Verified Date/Time: 11/09/2018 16:21:26 Reading Location: [facility] Reading Room [address] [place] [address] hand 3 views left 2018-11-09 16:21:00 Interfa ce, External Ris In - 11/09/2018 4:23 PM CDTFINAL REPORT Bilateral hand three - views HISTORY: Pain. COMPARISON: None FINDINGS:No displaced fracture. Osseous alignment is within normal limits.Mild degenerative osteoarthrosis of multiple bilateral DIP joints consisting of slight joint space narrowing, minimal subchondral sclerosis, a small marginal osteophytes, particularly involving the first distal interphalangeal joint bilaterally, right greater than left. 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 Signed: Ulises Bailey Verified Date/Time: 11/09/2018 16:21:26 Reading Location: [facility] Reading Room [address] [place] [address] [facility] XR hand 3 views right 2018-11-09 16:21:00 Interf norma, External Ris In - 11/09/2018 4:23 PM CDTFINAL REPORT Bilateral hand three - views HISTORY: Pain. COMPARISON: None FINDINGS:No displaced fracture. Osseous alignment is within normal limits.Mild degenerative osteoarthrosis of multiple bilateral DIP joints consisting of slight joint space narrowing, minimal subchondral sclerosis, a small marginal osteophytes, particularly involving the first distal interphalangeal joint bilaterally, right greater than left. 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 Signed: Ulises Bailey Verified Date/Time: 11/09/2018 16:21:26 Reading Location: [facility] Reading Room [address] [place] [address] [facility] RAD, SPINE, LUMBAR, COMPLETE (MIN 4 VIEWS) 2018-11-09 16:18: 00 Reason for Exam:- >m79.641 m79.642 m54.16 g89.29 FINAL REPORT Lumb ar Spine Radiographs: Five views HISTORY: Pain COMPARISON: None available. DISCUSSION:There are five non-rib bearing lumbar vertebral bodies.The alignment of the spine is within normal limits. No displaced fracture or compression deformity is identified. Degenerative disc disease at multiple levels, most markedly at L5-S1.Bilateral facet arthropathy at L4-L5 and L5-S1.Consultations of the abdominal aorta incidentally noted. IMPRESSION:Degenerative disc disease and facet arthropathy at multiple levels most markedly involving L5-S1. Signed: Ulises Bailey Verified Date/Time: 11/09/2018 16:18:32 Reading Location: [facility] [employer] Reading Room [address] [place] [address] spine lumbar complete 4 views min 2018-11-09 16:18:00 Interface, External Ris In - 11/09/2018 4:20 PM CDTFINAL REPORT Lumbar Spine Radiographs: Five views HISTORY: Pain COMPARISON: None available. DISCUSSION:There are five non-rib bearing lumbar vertebral bodies.The alignment of the spine is within normal limits. No displaced fracture or compression deformity is identified. Degenerative disc disease at multiple levels, most markedly at L5-S1.Bilateral facet arthropathy at L4-L5 and L5-S1.Consultations of the abdominal aorta incidentally noted. IMPRESSION:Degenerative disc disease and facet arthropathy at multiple levels most markedly involving L5-S1. Signed: Ulises Bailey Verified Date/Time: 11/09/2018 16:18:32 Reading Location: [facility] [employer] Reading Room [address] [place] [address] [facility] Tissue Exam 2018-10-19 14:40:00 Test Item Case Report (test code = 104) Surgical Pathology Repor t Case: [id number] Authorizing Provider: Mahesh Briseno Collected: 10/13/2018 Arnoldo1 Micaela Rosales MD Ordering Location: [facility] OR Received: 10/14/2018 0821 Perioperative Services Pathologist: Gena Thorpe MD Specimen: Condyle,Left Knee DIAGNOSIS (test code = 3220) [file] L4BeAPosutCnJQzbAUghGKJ6JTQ4Ty76JbL6UVSexm27 CPT Code(s) (test code = 3357) j7ncgFKsVNAnpEHfXpYiLTFqJFXxp0vuHAGkzOTnRpNsWoBqVyBzJjppkWBxSSHmItBoa0gyu529dEXr a5dvUHTkXdX0xUKkTDQuvNMbR975l2qnh8ewacJvqTA6LVKyXZN0YBmwwbThzqA1WDpapCEyKcM2HGtz ziMcIMviemInpkZlNue9WNJmX139CJF5hSudh2zsNK A3ORHpRPWcQrQsQy9ilCHnQ583OFApUFZMHGFmaBu9YDWlbyEctxFjnDTPw621T154y5kvCTJgexZmfO cXrxpgr6gjH980HXYoiNFzzqQjGiXjTWObeSYhxLG2VREvFH5sykqyKeKiKH2pbibhVbGxNE3edye2Rd ZzNB9cowngGoKyGRthYOSikhwjNEJrm1JviiyuWG2e J9Wdh6V7sJ8zzXCnRLNvoIEiYuOiVMDvas0uvYSvKEeap4FpQVJ3tuP5wVGjyEGuFGTxRU90Gpudc4Ga OhvyPAU4XIEqucZbs2Dhr2ayDxDjcvJeN4thO5YkDEHiDNMoTMXqCrXlpcZzk9Rnw2MlcMFmbTg7f8qw JXSbHKYynRwoq9rvIBP0FCXmU0Y3uQWrg5iaZMcfQI UnjRF6vkozXTmwHKIopmV1mpjmASoyYXWvoXU4epzmTEkgMOKbHfO6hvqyFJchGXBkSIE2EXzyy872IM X8YZsqKtfuMCnhYCUslyAuixFxsSiiOPJfEBHkOEjlCDBjMCarGWMnXSZkSjClpAbzdCqfdJ2xVxBfCe HbOLenOE3dQQLrM1gbiPVwUHMsUDSoY9usIzJvsV 7vrEldJDmxjtBpBEd6IxQ0VNGgkiY7SLLnPVjuVCX4 CLINICAL HISTORY (test code = 3356) o7juiWHzTGPlhCKeKqOvRUFxASSdg2nzJOAupXHkAkVcMfSgKgEkLvonsFXvNKGwSpXnl1jfk446dOGk e9wfUOFfEwW6fZRzIJJgrCYkO005UMBrRKnmi1tmv2MsNXUiuTYko6G3RUKYqxwiuDr1jNkjD58bd9P3 MgegL0foSGSpGSrkQMXvIIuueXTzKSF3VVPuXXD3DN qaerQmfaO7TQzttYIbUsC4GFh5d1rgaXftBHNkSHI4b4boHSehwkZgIQ3coi6gfIz1z1ghqdFaKJQuIV BeyEBALVGmU9NzyAgeAd4qbJi9bUdcSpsaUVP7Jmf4UO6snp74vtn8nPlcFVYcqafoRkY7OQipXMRffk kdPTa8POncVZZviJhdUJvtLHTqjrjrAKujLJZijVkw RQtxZCHnRvzqVPkiIKRoJQH5IRinp484XGV3KDiux4kmp1wyoEKoEdu6RGOuDxEgUmwtTCbar9Tnp0ay ZFMgap1jSYH2fPXnrVean7E9mXViVIDidQMsbtNxOGDdYeI5JRgkLN9wsa42DFGfXNU7sx9bhMKbeOwo yxVcgRHoBKlxQ0FgLASck604XTDvJ6ArUSLnx1P7rf OqOuCqLZKzpXJ9woF3TFPxXOn0hUUjqeJ4abEibHIdP0acxI28HiDaxADyO9UicG94GfJidXQgK9ZvoD 62OfTtsPHlZ5LrsA32PdRjwTKmJXBdjMJnJq5mfVSfkATkg3NdjTTvWQytR33pp063FSDwtlAgG4flrS FpblxwbGFpblxmMFxmczIwXHFsXHBsYWluXGYwXGZz UeOuyJreeU5nSiBzVjHlWACBkuHgHI7zBGWxu9EeyKXwuDJdqs7gtQO7CXNawK1gdpyhd1L0UH9xcqEh kaw0vOSck1JxsTSqhJMrxsBkHOIdkb7= SPECIMEN SOURCE (test code = 3377) b6tqjXCyMPLfuOZcLhQgUNMbGMJke1gqVZPnlEMxQgScIhWvEhFfPaczeQBnDNRrVyCoy3tdo535lSDz k3rdAHSiScA7mNOmUFIkoMKsC827w2laa2fovlGylDC8SJIwEYP8HPfdeoRhroA9RVfliQQrKlG6LOgd imWbESxbpxMjgtJbBcv9XOPfX329SVS5bAmtu6gqTF L7NVOlDAHbJyUyBz1rxJXdN928RUFcSTCZCYPgxTo9ONIizcZdwoCfuCNRy897Q676l3gzZFBejrKoiD gFmbqkl8trO991CTXelAGunwCmUlVyFWGhqVBbwPA3BGBxRB0ngxpnPrMtHT0zikbmDpBeNT6rrfj0Oi FlRU8kagdyMhGaTXnaGESnrwjiKAIcc2PkdfltZF2l X6Mci0I9sT2zuXGiXBQngVIiUwMfLZKrfr7egHXyQJdyy0EaZWR2zzR2iYPjrNJeXJMkKH30Ilswl8Ma YmbxFNH4ZCEcrkPxq2Lvy0drIgUwmeBrY7hnF1UxDQSuEYIkQJSpXnSwbuEez4Glw4MhiDUnuAu1p4mo JKJhTJZjsXdno6wbKHR7BJEuP2P0eSZvu8xwLCovFO EqnIP3urfbOIrdGLNqcjS6phkwUSrtMPNwuNX1rddqBIzvOQJwRyL0ptczVFusJXWvTKD3SAffj816NA M3OCoeFyknNYwbSDKctwOrnfYkgEqeCIXxWEDaALrbZFZxQIpfDYSlYDMqNbHcnHfhkYahsB4rHeZiCl SrLXmlHA6gMIItV4zfiWOwQKDoHIJiP5yyLjZnlG3r rBykJJoyujXcBURhvkU9iZEtOLmfScYon19hFUngQOE5 GROSS DESCRIPTION (test code = 3366) q7pypFEvTICgcDAfEwWvQJRuRRJpm0nqQVMgeLVnCdJuWeBoIxLoRsrxxDNaEYHpDmCkh4mbn947rVOb e7weAANgZvB9lMJnPMRfeYYyL904UBXvDNfjw3izl7ZeHLXbtVYqf2Z3MXNBenixsCf2iRneX49cc1E6 EmwiN3ksZEGnMQkoLFShUHwlzMJwYVC3NMIlJGB1XF nnrhZmzlQ9WRkjxGAwBoT5CUk5s5qyvRjuDPNaEPH9v1biGEaazpMlNG6rgs5joAq6k7vqffPoBXEnJY PwdGQGENCyR0BerQkdFj0yuDl1uCeqEituJSI3Plo7TA4uio03qsf0vKevNWGlgqjxJnO9TPebWLAqjk oeRHe3GMtwWQQkpUbjWKvnGBKgsszkPNecMPYobGlj FKzwQKElNjyvMPwwEXWgVQM5NPvkd662QBZ0XNytk5vkl4omxXOeCsn5CCLrCuEbVccnNUzuq5Lme4jv VPZewt7hFAL2fHMyiGerx5H6hEIwQHHrcZGpcoCvRYQvMlJ1XFeiCP2snk50JNRrOTZ0wf1elYCltNuq qtXxpCLdPQhoU6XnZVOik855HDRxX9GjFEYfx1V8bl BkZwKwIAHjtAO9uiE1NYGiGFb6dLDhrbW0gmYekRQmG1pisH66SkBiuCZhE7NyfE35LbMpnOXrD2LdbF 33YkCnnVTxV3JtkD33PoUppPTlDDJmpJAwXn0yqCJtoSFix9OmiHMqJJguC28ta176IEUgflOiH1ilnG FpblxwbGFpblxmMFxmczIwXHFsXHBsYWluXGYwXGZz GbBmoPeirM5oVhXbAzXqIZILTHYdbJOtBFRouhUoiZEbBPXmfIRsEDovcJzefTqoFNSqnHbgasAzjxCp YI3oDIUkT4Ccc0Pqj05cjaLkEqKpLOPmWTGiW93dGUbhJWoflDFptCXybfDfApXugtBcGRLbeDA4ROwq AHUmaIXxA0mgGFashTZgw3UbwSTmvYmxgRRnvZKcKU argCQcZJLdheNmSmZgE62lukRqQSOkDFjeD0w2YXWjfHmhCPEuGgcsdCDusWW0BWA7CSLtzQeys57vbH mzuyAvdyPazBN9FEoyUE4hGGpaUGUfeNwntOwspxTbzXVqLETrKGWhz6ZsOPkcGYFvY9MiBYVqJVHeEM 2lYTSckVPxRFHym40dBCZqo3Eqq52mk0f2eEEoLW1m ytyuLQulAH0dxL93UF8wEF5zeZXsvKu9eAxoCJVlhf1spAwthq1eSJhlPQIpFSVdfCYeKCifIJIjqqoc eVb4VOXdQ6Qlo69zLMI5bjZzGMVfSPdgrJ1bl7valdJptYTsTQunsEqhgyX0gpLaAOL3tOJcDGGvgbLe i7d0xQUyvbFbke2ionCuGKYwi72pSiCUQNKeDQWrec GxhMs9ZCIkZMC9pR9chkHcgzZef0OoxRd0tQGxPGddVJBeHABjHIUpu3mnb1gwpgthJGReFQvmqPKjB7 S5dM1tCaMgRFVIK7YqNPypFRT0 MICROSCOPIC DESCRIPTION (test code = 3371) w0tfcQVfKBHsaREnSoJzRGWyUEAdn5ndDBLzvDUhUqIiHdIwGiDkAjqmxNJxMUFsMiVpu1cmm675hPWe f1mdTGKyPjX2mRDtUNIkpVCiX710GZOiJOuox4gbz3WjFHIthINec5U4DIMQjisurPa3uNuzD59sy1J9 IndpZ8vzMRTvXDdqYEAiFJlyhSMnTJJ5WLGyNYZ3CU zlegHikyT6SRmjtTQvScJ5IGs6q0olkZzjGBXoJJM5d1drBFivpgZhXB8dfw4nyQw7w1jfvrMwWDDjNW SmgKFAODNuS2OusMcxPz5xvGf7tDbdRhvbOZK0Aja7AN0cvb25mwj8cSylEMQsahyfJjY9XVskIYBznt qrJPh0PBfsLMKzeSquVUzaZEGusnrwSLkmHBQhlWtp GYptRZFrOixzNShfXKUbLYY9IJolj071ATV0SXycr3dse6zexDIxOei5OFGcHpAiFuaxVFztl6Efj2wh YAScwr4dKEU1zMHvoNjag8E8lWBqGOVxuCDpxePqVGTqzk86dMDggVFpeIQcdp7hqdOovSCecKVlJBB9 qINhxuNxFPJumAArMAYiGE3srKMjLGNogF2yuwaeLW DcSxAwjoypOQHbdFmmqoGxXs8duOpzRLS6XThvS9gpdK3wAcX2QWcqK4cdbW4dCVa4WDylsJP8SQWxiJ 1bPU8mznocv6klGmAmFC5pmvbul4jpEdLxHQ3zcde9c9gdNtAqWO4sdjbxc1ijVbAnUZsmOBJdjhjuSM Rap7AvhmreFXSkp2AqI7XfbNgeW64ioOqnW80eKOKa dJywfH9nrKcfiV0iPnYoBfKgKFfiuKlkmMXmbjcbJMmscnOkLWAiCCetBNXpJFRjWyKiBFBqAg9sgINz LlxwYXJccGFyfQ== [facility] [id number] 14:40:00Surgical Pathology Report Case: [id number] Authorizing Provider: Mahesh Briseno Collected: 10/13/2018 Hoang Weber Jr., MD [facility] Received: 10/14/2018 0821 Perioperative Services Pathologist: Gena Thorpe MD Specimen: Condyle,Left Knee A. CONDYLE, LEFT KNEE, ARTHROPLASTY: - OSTEOARTHRITIS AND CHRONIC SYNOVITIS Signing Pathologist Direct Phone Line: [phone] signed by Gena Thorpe MD on 10/19/2018 at 2:40 [id number] and postop diagnosis: primary osteoarthritis of left k neeCondyle, left kneeReceived fresh labeled with the patient's name, accession n fred and "condyle, left knee" is a 5 x 5 x 4 cm aggregate of multiple waldrop-white bone fragments to include the tibial plateau, epicondyles and patella. The ely cular surface displays focal areas of eburnation, erosion with a minimal amount of osteophytic formation. The specimen is serially sectioned to reveal homogeneo us, yellow trabecular bone with no gross lesions. 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 CG/pl Performed.RAD, KNEE, 1 OR 2 VIEWS, [id number] 07:43:00Of operative side while in recovery room.Reason for exam:->s/p L TKAFINAL REPORT Radiographs of the left knee - two views HISTORY: PainCOMPARISON: April 07, 2018. FINDINGS:Bones:No acute displaced fracture. Osseous alignment is within normal limits. Joints:Patient status post left knee replacement with associated postsurgical change. The surgical hardware is intact without evidence of failure or loosening. Soft tissues:The soft tissues appear unremarkable. IMPRESSION: Patient status post left knee replacement with associated postsurgical change. The surgical hardware is intact without evidence of failure or loosening. Signed: Eric Stewart MDReport Verified Date/Time: 10/14/2018 07:43:55 Reading Location: [facility] Reading Room [address] [place] [address] knee 1 or 2 views [id number] 07:43:00Interface, External Ris In - 10/14/2018 7:46 AM CDTFINAL REPORT Radiographs of the left knee - two views HISTORY: PainCOMPARISON: April 07, 2018. FINDINGS:Bones:No acute displaced fracture. Osseous alignment is within normal limits. Joints:Patient status post left knee replacement with associated postsurgical change. The surgical hardware is intact without evidence of failure or loosening. Soft tissues:The soft tissues appear unremarkable. IMPRESSION: Patient status post left knee replacement with associated postsurgical change. The surgical hardware is intact without evidence of failure or loosening. Signed: Eric Stewart MDReport Verified Date/Time: 10/14/2018 07:43:55 Reading Location: [facility] Reading Room [address] [place] [address] [facility] Metabolic [id number] 05:12:00* Test Item Value Reference Range Interpretation Comments Sodium (test code = 2951-2) 141 meq/L 136-145 Potassium (test code = 2823-3) 3.2 meq/L 3.5-5.1 L Chloride (test code = 2075-0) 105 meq/L 98-107 CO2 (test code = 8-9) 26 meq/L 22-29 BUN (test code = 3094-0) 9 mg/dL 7-21 Creatinine (test code = 2160-0) 1.10 mg/dL 0.57-1.25 Glucose (test code = 2345-7) 100 mg/dL 70-105 Calcium (test code = 72449-2) 7.5 mg/dL 8.4-10.2 L EGFR (test code = 57413-6) 50 mL/min/1.73 sq m ESTIMATED GFR IS NOT ACCURATE CREATININE CLEARANCE IN PREDICTING GLOMERULAR FILTRATION RATE. ESTIMATED GFR IS NOT APPLICABLE FOR DIALYSIS PATIENTS. Lab Interpretation (test code = 45280-8) Abnormal [facility] METABOLIC [id number] 05:12:00* Test Item Value Reference Range Interpretation Comments SODIUM (BEAKER) (test code = 381) 141 meq/L 136-145 POTASSIUM (BEAKER) (test code = 379) 3.2 meq/L 3.5-5.1 L CHLORIDE (BEAKER) (test code = 382) 105 meq/L 98-107 CO2 (BEAKER) (test code = 355) 26 meq/L 22-29 BLOOD UREA NITROGEN (BEAKER) (test code = 354) 9 mg/dL 7-21 CREATININE (BEAKER) (test code = 358) 1.10 mg/dL 0.57-1.25 GLUCOSE RANDOM (BEAKER) (test code = 652) 100 mg/dL 70-105 CALCIUM (BEAKER) (test code = 697) 7.5 mg/dL 8.4-10.2 L EGFR (BEAKER) (test code = 1092) 50 mL/min/1.73 sq m ESTIMATED GFR IS NOT ACCURATE CREATININE CLEARANCE IN PREDICTING GLOMERULAR FILTRATION RATE. ESTIMATED GFR IS NOT APPLICABLE FOR DIALYSIS PATIENTS. Hemoglobin and [id number] 05:05:00* Test Item Value Reference Range Interpretation Comments Hemoglobin (test code = 786-4) 10.0 11.2- 15.7 GM/DL L Hematocrit (test code = 4544-3) 30.3 % 34.1-44.9 L Lab Interpretation (test code = 77494-1) [facility]normal [facility] [id number] 05:05:00* Test Item Value Reference Range Interpretation Comments HEMOGLOBIN (BEAKER) (test code = 410) 10.0 GM/DL 11.2-15.7 L HEMATOCRIT (BEAKER) (test code = 411) 30.3 % 34.1-44.9 L Hepatitis panel, [id number] 23:33:00* Test Item Value Reference Range Interpretation Comments Hep A IgM (test code = 35646-3) Nonreactive Nonreactive Hep B C IgM (test code = 03613-2) Nonreactive Nonreactive Hepatitis C Ab (test code = 15110-3) Nonreactive Nonreactive HBsAg Screen (test code = 5195-3) Nonreactive Nonreactive Lab Interpretation (test code = 37831-3) [facility] Antigen with HIV-1/2 [id number] 23:33:00* Test Item Value Reference Range Interpretation Comments HIV-1 Antigen with HIV 1&2 Antibody (test code = 59800-5) No nreactive Nonreactive Lab Interpretation (test code = 53316-6) Normal [facility]AT[facility] PANEL, [id number] 23:33:00* Test Item Value Reference Range Interpretation Comments HEPATITIS A IGM ANTIBODY (BEAKER) (test code = 498) Nonreactive No nreactive HEPATITIS B CORE IGM ANTIBODY (BEAKER) (test code = 645) Non reactive Nonreactive HEPATITIS C ANTIBODY (BEAKER) (test code = 367) Nonreactive Nonrea ctive HEPATITIS B SURFACE ANTIGEN (2) (BEAKER) (test code = 2585) Nonreactive Nonreactive HIV-1 ANTIGEN WITH HIV-1/2 [id number] 23:33:00* Test Item Value Reference Range Interpretation Comments HIV-1 ANTIGEN WITH HIV 1\\T\\2 ANTIBODY (2) (BEAKER) ( st code = 2586) Nonreactive Nonreactive Type and screen, [id number] 16:09:00* Test Item Value Reference Range Interpretation Comments ABO/RH AUTOMATED (BEAKER) (test code = 2260) O POSITIVE Ab Scrn (test code = 890-4) NEGATIVE [facility]AN[facility] PERIPHERAL [id number] 15:18:08 Dwight Patterson Dace - 10/13/2018 3:18 PM CDTPeripheral BlockPatient location d uring procedure: pre-procedureStart time: 10/13/2018 3:09 PMEnd time: 10/13/2018 3 :12 PM Procedure Indication: post-op pain managementPreanesthetic ChecklistCompl eted: patient identified, pre-op evaluation, timeout performed, IV checked, risk s and benefits discussed, monitors and equipment checked, anesthesia consent giv en, prep site dry prior to draping and maximum sterile barriers were used: cap, mask, sterile gown, sterile gloves, and large sterile sheetStaffingAnesthesiolog ist: Dwight Swain Jr., MDResident/HEDGE FUND PRINCIPAL: Dwight PattersonPrepPrep: chlor hexidine gluconate and isopropyl alcoholProcedures: sterile gloves, surgical mas k, surgical hat, sterile technique and prep and sterile drape appliedPeripheral Nerve BlockPatient position: supinePatient monitoring: EKG, HR, BP and DdL2Jucdh ality: leftBlock type: adductor canalInjection technique: catheterultrasound aaron ded - in plane, prescan was completed prior to procedure and needle tip was visu alized throughout the entire procedureultrasound image savedBlock Dose: ropivica ine and catheterInfiltration strength: 0.5 %Dose: 20 mLNeedleNeedle type: over t he needle catheterNeedle gauge: 20 GNeedle length: 75.Needle Localization: US g uidedCatheter type: open endCatheter size: 18 GHydrodissection? yesCatheter tunn eledDressing: Occlusive dressing applied in sterile fashion and Dermabond applie d at the catheter insertion siteAssessmentInjection assessment: incremental inje ction and negative aspiration for heme LOC: Sedated with meaningful contactsuppl emental oxygen used.no evidence of intravascular injection and no heart rate larry ngeno paresthesiapatient had no immediate complications and patient tolerated th e procedure wellAdditional NotesThe above procedures were supervised by the atte nding listed above. The attending was present for the entire duration of the pro cedure.[facility] HospitalANESTHESIA SPINAL [id number] 15:17:27 Dwight Patterson Dace - 10/13/2018 3:17 PM CDTSpinal BlockPatient location durin g procedure: pre-procedureStart time: 10/13/2018 3:02 PMEnd time: 10/13/2018 3:06 PM Procedure Indication: primary anestheticStaffingAnesthesiologist: Jia Swain Jr., MDResident/HEDGE FUND PRINCIPAL: Dwight PattersonPreanesthetic ChecklistComplete d: patient identified, pre-op evaluation, timeout performed, IV checked, risks a nd benefits discussed, monitors and equipment checked, anesthesia consent given, prep site dry prior to draping and maximum sterile barriers were used: cap, mas k, sterile gown, sterile gloves, and large sterile sheetPrepPrep: chlorhexidine gluconate and isopropyl alcoholProcedures: sterile gloves, surgical mask, surgic al hat, sterile technique and prep and sterile drape appliedSpinal BlockPatient position: sittingPatient monitoring: EKG, HR, BP and AqT2Kxltxzoj: midlineNo pic tures availableLevel: L3-4Injection technique: single-shotlandmark technique an d landmark techniqueNeedleNeedle type: pencil-tip Needle gauge: 25 GNeedle Lengt h: 9 cmUsed introducerAssessmentEvents: barbotagepatient tolerated the procedure well, patient had no immediate complications and patient had adequate level of anesthesia and negative Allis clamp testAdditional NotesThe above procedures wer e supervised by the attending listed above. The attending was present for the en tire duration of the procedure.[facility] HospitalCT, EXTREMITY, LOWER, WITHOUT IV CONTRAST, [id number] 07:13:00FINAL REPORT TECHNIQUE:Computed tomography imaging of the LEFT KNEE was performed WITHOUT injected contrast. The Billy protocol performed with the guidebar. HISTORY: NoneCOMPARISON: None available. FINDINGS: Billy CT knee protocol performed for preoperative CT for the replacement. Axial images of the left hip, left knee, and left ankle performed. No coronal or sagittal reconstructions for protocol. No visualized fracture. No lytic or blastic lesion. No soft tissue mass. Surgical anchor within the calcaneus. IMPRESSION: Preoperative CT for knee replacement with Billy protocol Signed: Dwight Thayer Verified Date/Time: 08/25/2018 07:13:24 lower extremity without IV contrast left 2018-08-25 07:13:00Interface, External Ris In - 08/25/2018 7:15 AM CDTFINAL REPORT TECHNIQUE:Computed tomography imaging of the LEFT KNEE was performed WITHOUT injected contrast. The Billy protocol performed with the guidebar. HISTORY: NoneCOMPARISON: None available. FINDINGS: Billy CT knee protocol performed for preoperative CT for the replacement. Axial images of the left hip, left knee, and left ankle performed. No coronal or sagittal reconstructions for protocol. No visualized fracture. No lytic or blastic lesion. No soft tissue mass. Surgical anchor within the calcaneus. IMPRESSION: Preoperative CT for knee replacement with Billy protocol Signed: Dwight Thayer Verified Date/Time: 08/25/2018 07:13:24 [facility], [facility], 1 OR 2 VIEWS, [id number] 13:45:00Reason for Exam:->left knee OAFINAL REPORT Exam: Left knee two views History: Knee pain Comparison: None. Findings: No fracture or malalignment. Mild degenerative a rthrosis of the medial compartment with osteophyte formation. Small effusion. Im pression: No acute osseous abnormality Mild medial compartment degenerative arth rosis. Signed: Dwight Thayer MDReport Verified Date/Time: 04/07/2018 13:45:09 UE [id number] 14:17:00Surgical Pathology Report Case: [id number] Authorizing Provider: Cherie Riojas, Collected: 09/18/2016 0626 Ordering Location: [facility] PERIOPERATIVE Received: 09/18/2016 0807 SERVICES Pathologist: Robbie Calderon MD Specimen: Condyle,Right Knee BONE AND SOFT TISSUE, RIGHT KNEE, ARTHROPLASTY: -OSTEOARTHRITIS AND CHRONIC SYNOVITIS [id number] osteoarthritis of right knee Right knee condyle Specimen is received in a fluidless container labeled with the patient's information and labeled "right knee condyle" and consists of multiple fragments of waldrop knee bone and soft tissue measuring 7 x 5 x 3 cm in aggregate. The bone fragments have distinct osteophyte formation with focal areas of eburnation.Section code: A1, A2, bone submitted for decalcification; A3, soft tissue and bone submitted for decalcification. CG/ew The sections show reduplication of the tidemark, eburnation, and osteophyte formation. The syno vial tissue reveals subsynovial edema and chronic inflammation.BASIC METABOLIC [id number] 05:16:00* Test Item Value Reference Range Interpretation Comments SODIUM (BEAKER) (test code = 381) 133 meq/L 136-145 L POTASSIUM (BEAKER) (test code = 379) 3.1 meq/L 3.5-5.1 L CHLORIDE (BEAKER) (test code = 382) 96 meq/L 98-107 L CO2 (BEAKER) (test code = 355) 24 meq/L 22-29 BLOOD UREA NITROGEN (BEAKER) (test code = 354) 10 mg/dL 7-21 CREATININE (BEAKER) (test code = 358) 1.20 mg/dL 0.57-1.25 GLUCOSE RANDOM (BEAKER) (test code = 652) 178 mg/dL 70-105 H CALCIUM (BEAKER) (test code = 697) 7.2 mg/dL 8.4-10.2 L EGFR (BEAKER) (test code = 1092) 45 mL/min/1.73 sq m ESTIMATED GFR IS NOT ACCURATE CREATININE CLEARANCE IN PREDICTING GLOMERULAR FILTRATION RATE. ESTIMATED GFR IS NOT APPLICABLE FOR DIALYSIS PATIENTS. HEMOGLOBIN AND [id number] 04:57:00* Test Item Value Reference Range Interpretation Comments HEMOGLOBIN (BEAKER) (test code = 410) 10.0 GM/DL 12.0-15.0 L HEMATOCRIT (BEAKER) (test code = 411) 28.1 % 36.0-45.0 L POTASSIUM-STAT [id number] 06:37:00* Test Item Value Reference Range Interpretation Comments POTASSIUM (BEAKER) (test code = 379) 2.4 meq/L 3.6-5.5 LL
--- OUTSIDE RECORDS SUMMARY | 2019-08-18 20:05 | XMS REPORT | Summary of Care ---
Author Author [facility] Organization [facility] Address Unknown Phone Unavailable Care Team Providers Care Spinning Operator Name Role Phone [employer], [facility] [employer] 34 [phone] Lucas Mcfarland MD PCP Unavailable Reason for Referral * (Routine) Referred By Contact Referred To Contact Status Reason Specialty Diagnoses / Procedures Bret Fuller MD [address] [place] [address] Pending Consult, Test, and Physical Therapy Diagnoses Treat Chronic radicular low back pain * Consult, Test & Treat (Routine) Referred By Contact Referred To Contact Status Reason Specialty Diagnoses / Procedures Bret Fuller MD [address] [address] Rick Rose Jr., MD [address] [address] Pending Consult, Test, and Physical Diagnoses Treat Medicine and Chronic radicular Rehab low back pain Consult, Test, and Treat P rocedures CA OFFICE OUTPATIENT NEW 45 MINUTES * Radiology Services (Routine) Referred By Contact Referred To Contact Status Reason Specialty Diagnoses / Procedures Bret Fuller MD [address] [address] [place], Radiology [address] [place] [address]. [address] [place] [address] Pending Radiology Diagnoses Chronic radicular low back pain P rocedures XR LUMBAR SPINE AP LATERAL FLEXION AND EXTENSION Reason for Visit * Reason Comments Follow Up Encounter Details Care Team Description Date Type Department Bret Fuller MD [address] [place] [address] [place], [place] [id number] Follow Up 11/09/2018 Office Visit [facility] Physical Medicine & Rehabilitation [address] [facility]. 10th Floor, [place] [address] Allergies Comments Active Allergy Reactions Severity Noted Date Bandaids Adhesive Tape Rash Low 01/11/2013 Psych - pt states that she feels like she's coming out of her skin Metoclopramide Hcl Anxiety, Medium 09/11/2008 Other (See Comments) Sulfa Antibiotics Hives High 01/11/2013 Sulfa Drugs Cross Hives High 09/11/2008 Reactors documented as of this encounter (statuses as of 11/10/2018) Medications End Date Status Medication Sig Dispensed [...] (ESTRACE Place 1 g 42.5 g 3 01/19/2 01 VAGINAL) 0.1 MG/GM vaginally 3 8 [...] mouth daily. 9 Coronary artery disease involving [place] coronary artery of [place] heart without angina pectoris Active hydrOXYzine (ATARAX) [...] mg 0 10/15 by mouth. 9 11/09/2018 Discontinued tramadol (ULTRAM) 50 MG TAKE 2 180 Tab 2 tablet TABLETS BY 9 MOUTH EVERY 8 HOURS NEEDED FOR PAIN 11/09/2018 Discontinued valsartan-hydrochlorothia Take 1 Tab by 90 Tab 0 zide (DIOVAN-HCT) mouth daily. 9 160-12.5 MG per tabletIndications: Essential hypertension, benign 11/09/2018 Discontinued baclofen (LIORESAL) 10 MG Take 1 Tab by 120 Tab 0 tablet mouth every 6 9 hours as needed. 11/09/2018 Discontinued cyclobenzaprine Take 1 Tab by 30 Tab 1 10/19/19 1 (FLEXERIL) 10 MG tablet mouth 3 times 9 daily as needed for Muscle spasms. 11/09/2018 Discontinued meloxicam (MOBIC) 15 MG TK 1 T PO D 0 tablet 9 documented as of this encounter (statuses as of 11/10/2018) Active Problems Problem Noted Date Vitamin D [...] as of this encounter (statuses as of 11/10/2018) Resolved Problems Problem Noted Date Resolved Date Other malaise and fatigue 10/23/2008 11/30/2011 Diarrhea 09/27/2008 11/30/2011 Lip lesion 09/11/2008 11/30/2011 documented as of this encounter (statuses as of 11/10/2018) Immunizations Name Administration Dates Next Due Influenza [...] Signs Reading Time Taken Comments Vital Sign 134/75 11/09/2018 12:18 PM CDT Blood Pressure 80 11/09/2018 12:18 PM CDT Pulse - - Temperature - - Respiratory Rate - - Oxygen Saturation - - Inhaled Oxygen Concentration 78.5 kg (173 lb) 11/09/2018 12:18 PM CDT Weight 149.9 cm (4' 11") 11/09/2018 12:18 PM CDT Height 34.94 11/09/2018 12:18 PM CDT Body Mass Index documented in this encounter Progress Notes * Bret Fuller MD - 11/09/2018 11:45 AM CDT Here today for f/u RE: Chief Complaint Patient presents with Follow Up HPI: Patient presents today for evaluation of radicular low back pain. This beg an during her physical therapy but has been a problem in past. This is limiting her physical therapy for her surgery. Hydrocodone is not effective. Heat and an ti-inflammatories, Naprosyn, appears to be most effective that she was concerned about taking this with the [place]. [place] is more helpful for her surgical pain. ROS: No fever, chills, nightsweats. No weight loss. No bowel or bladder incontinence. No weakness or numbness. Mood good. BP 134/75 (BP Location: left arm, Patient Position: Sitting, Cuff Size: regular) | Pulse 80 | Ht 4' 11" (1.499 m) | Wt 173 lb (78.5 kg) | LMP 03/15/2000 | BMI 34.94 kg/m NAD, pleasant and conversational . NC/AT, no Neck mass, no LAD Lungs; Respirations unlabored, equal. Abd: soft, nontender CV: warm, well perfused Ext: no edema. Neuro: Extremity sensation is intact, strength testing is limited in the left lo wer extremity due to her surgery. Skin: The patient surgical wound is healing well MSK: Back Exam Tenderness The patient is experiencing tenderness in the lumbar. Range of Motion Extension: normal Flexion: abnormal Lateral bend right: normal Lateral bend left: abnormal Rotation right: normal Rotation left: normal Tests Straight leg raise right: negative Straight leg raise left: negative Other Toe walk: normal Heel walk: normal Sensation: normal Gait: antalgic Erythema: no back redness Scars: absent A/P: Encounter Diagnosis and Orders ICD-10-CM 1. Chronic radicular low back pain M54.16 XR LUMBAR SPINE AP LATERAL FLEXION AND EXTENSION G89.29 AMB REF TO PHYSICAL MED [facility] AMB REF TO PT EXTERNAL Particular low back pain, episodic, limiting physical therapy for her knee repla cement. - she will uses Naprosyn scheduled for 2 weeks. - X-ray imaging of her lumbar spine was obtained today. - Patient's physical therapy was updated to include Gladys extension exercises - Referred to Dr. Rose for possible epidural steroid injection. - -Counseled on diagnosis, etiology, contributing factors, treatment options. Bret Fuller M.D. PM&R Diagnostic/Interventional MSK ultrasound Time taken was 25 or more minutes with the patient and more than half the time w as spent in counseling and coordination of care. documented in this encounter Plan of Treatment Care Team Description Date Type Specialty Bret Fuller MD [address] [address] [phone] 11/26/2018 Office Visit Physical Medicine a nd Rehab Rick Rose Jr., MD [address] [facility] [address] [place] [address] [phone] 12/08/2018 Office Visit Physical Medicine a nd Rehab Mahesh Esqueda MD [address] [facility] [address] [place] [address] [phone] 12/13/2018 Office Visit Orthopedic Surgery Donte Grant MD [address] [facility] [address] [place] [address] [phone] 12/22/2018 Office Visit Allergy Adrian Gallego MD [address] [facility] 10[address] FLOOR, [place] [address] [phone] 01/18/2019 Office Visit Urology [place] Pft-Pft Tech 01/20/2019 Procedure Pulmonology Visit-Tech Performed Ricki Kong MD [address] [facility] [address] [place] [address] 01/20/2019 Office Visit Sleep Center Order Schedule Name Type Priority Associated Diag noses 1 Occurrences starting 11/09/2018 until 11/10/2019 XR LUMBAR SPINE AP Imaging Routine Chronic rad icular low LATERAL FLEXION AND back pain EXTENSION Order Schedule Name Type Priority Associated Diag noses Ordered: 11/09/2018 AMB REF TO PHYSICAL MED Outpatient Routine Chroni c radicular low [facility] Referral back pain Ordered: 11/09/2018 AMB REF TO PT EXTERNAL Outpatient Routine Chronic radicular low Referral back pain Health Maintenance Due Date Last Done Comments [...] or lumbosacral neuritis or rad iculitis, unspecified documented in this encounter Insurance Type Payer Benefit Subscriber ID Effective Phone Address Plan / Dates Group Medicare MEDICARE MEDICARE xxxxxxxxxxx 2018-P [address] resent [id number] [place] [address] Medicare UNITED HEALTHCARE AARP xxxxxxxxxxx 2018-P [address] MED[address] resent [address] [place] [phone] documented as of this encounter 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
--- OUTSIDE RECORDS SUMMARY | 2019-08-18 20:05 | XMS REPORT | Summary of Care ---
Author Author [facility] Organization [facility] Address Unknown Phone Unavailable Care Team Providers Care Engravings Polisher Name [employer], [employer] 34 [phone] Kalyn Leija MD PCP Reason for Referral * Radiology Services (Routine) Referred By Contact Referred To Contact Status Reason Specialty Diagnoses / Procedures Kalyn Leija MD [address] [address] [place], Radiology [address] [address] Pending Radiology Diagnoses Bilateral renal masses P rocedures US RENAL BILATERAL Reason for Visit * Reason Comments Medication Question Encounter Details Care Team Description Date Type Department Kalyn Leija MD [address] [address] [phone] Medication Question 12/22/2018 Office Visit [facility] General Internal Medicine [address]; [address] [place] [address] Allergies Comments Active Allergy Reactions Severity Noted Date Bandaids Adhesive Tape Rash Low 01/11/2013 Psych - pt states that she feels like she's coming out of her skin Metoclopramide Hcl Anxiety, Medium 09/11/2008 Other (See Comments) Sulfa Antibiotics Hives High 01/11/2013 Sulfa Drugs Cross Hives High 09/11/2008 Reactors documented as of this encounter (statuses as of 12/23/2018) Medications End Date Status Medication Sig Dispensed Refills Start Date Active PREMARIN 0.9 MG Take 0.9 mg 0 TABSIndications: by mouth Menopause syndrome daily. Active XANAX 0.5 MG Take 0.5 mg 0 TABSIndications: Anxiety by mouth nightly as needed for Sleep. Active buPROPion (WELLBUTRIN XL) Take 300 mg [...] (ESTRACE Place 1 g 42.5 g 3 01 VAGINAL) 0.1 MG/GM vaginally 3 8 vaginal creamIndications: times weekly. Vaginal atrophy Active albuterol 108 (90 base) Inhale 2 8.5 g 6 mcg/act inhaler Puffs by 9 mouth every 4 hours as needed for Wheezing. Active metoprolol (TOPROL-XL) 25 Take 1 Tab by 90 Tab 3 MG XL tabletIndications: mouth daily. 9 Coronary artery disease involving [place] coronary artery of [place] heart without angina pectoris Active naproxen (NAPROSYN) 500 Take 1 Tab [...] MG per DAILY tabletIndications: Essential hypertension, benign Active hydrOXYzine (ATARAX) 25 Take 1 Tab by 30 Tab 1 10/09/201 MG tabletIndications: mouth at 9 Recurrent UTI, Chronic bedtime. interstitial cystitis Active atorvastatin (LIPITOR) 40 Take 1 Tab by 90 Tab 0 201 MG tabletIndications: mouth daily. 9 Mixed hyperlipidemia Active venlafaxine (EFFEXOR XR) Take 300 mg 0 150 MG XR capsule by mouth daily. Active duloxetine (CYMBALTA) 30 Take 1 Cap by 30 Cap 0 201 MG capsule mouth daily. 9 12/22/2018 Discontinued venlafaxine (EFFEXOR XR) Take 75 mg by 0 150 MG XR capsule mouth daily. Take two tablets by mouth daily. 12/22/2018 Discontinued atorvastatin (LIPITOR) 40 TAKE 1 TABLET 90 Tab 0 07/27/201 MG tablet BY MOUTH 9 DAILY 12/22/2018 Discontinued hydrOXYzine (ATARAX) 25 TAKE 1 TABLET 30 Tab 0 08/30/201 MG tabletIndications: BY MOUTH AT 9 Recurrent UTI, Chronic BEDTIME interstitial cystitis 12/22/2018 Discontinued hydrOXYzine (ATARAX) 25 Take 1 Tab by 30 Tab 0 201 MG tabletIndications: mouth at 9 Recurrent UTI, Chronic bedtime. interstitial cystitis documented as of this encounter (statuses as of 12/23/2018) Active Problems Problem Noted Date Vitamin D [...] as of this encounter (statuses as of 12/23/2018) Resolved Problems Problem Noted Date Resolved Date Other malaise and fatigue 10/23/2008 11/30/2011 Diarrhea 09/27/2008 11/30/2011 Lip lesion 09/11/2008 11/30/2011 documented as of this encounter (statuses as of 12/23/2018) Immunizations Name Administration Dates Next Due Influenza [...] Signs Reading Time Taken Comments Vital Sign 126/62 12/22/2018 9:30 AM CDT Blood Pressure 76 12/22/2018 9:30 AM CDT Pulse 36.7 C (98 F) 12/22/2018 9:30 AM CDT Temperature - - Respiratory Rate 98% 12/22/2018 9:30 AM CDT Oxygen Saturation - - Inhaled Oxygen Concentration 75.5 kg (166 lb 6.4 oz) 12/22/2018 9:30 AM CDT Weight 149.9 cm (4' 11") 12/22/2018 9:30 AM CDT Height 33.61 12/22/2018 9:30 AM CDT Body Mass Index documented in this encounter Patient Instructions * Patient Instructions* Kalyn Leija MD - 12/22/2018 9:15 AM CDT - We are going to do a trial of cymbalta 30 mg - For the next 2-7 days, we can drop down to venlafaxine 150 mg and then one day , stop venlafaxine and start cymbalta 30 mg instead - we can increase to twice daily if needed - See me within 1 week - Please see us immediately if any new symptoms develop documented in this encounter Progress Notes * Kalyn Leija MD - 12/22/2018 9:15 AM CDT CC: Chief Complaint Patient presents with Medication Question HISTORY OF PRESENT ILLNESS: Laura Vuong is a 68 y.o. year old female who presents for following concerns: # Sciatic Nerve Pain - flared and has been doing the exercises with PT but it is not responding - had appt with Dr. Rose with goal to due to 01/24/2019 - seeing Dr. 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 Freeman - aware of the cancer risk of estrogen but has severe side effects of medication s - extensive discussion with cancer doctor and OB team REVIEW OF SYSTEMS Review of Systems Except as above in HPI, otherwise relevant 10 point ROS reviewed and negative. PAST MEDICAL HISTORY Past Medical History: Diagnosis Date Antibiotic long-term [...] hearing loss, asymmetrical 04/21/2013 Unspecified essential hypertension PAST SURGICAL HISTORY Past Surgical History: Procedure Laterality Date HX ANGIOPLASTY 2006 cath X 2, total of 4 stents HX APPENDECTOMY HX BREAST SURGERY Right 2010 HX BUNIONECTOMY 1998 both feet HX CARDIAC CATHERIZATION Feb 20 Little blockage according to parent trainer Dr. Hernandez HX CERVICAL FUSION HX HYSTERECTOMY, TOTAL ABDOMINAL 2000 prolonged surgery HX SINUS SURGERY HX SPINE SURGERY HX STENT/ANGIOPLASTY HX TONSILLECTOMY HX TONSILLECTOMY AND ADENOIDECTOMY HX TOTAL KNEE REPLACEMENT Right 09/18/2016 HX URETHRA SURGERY X3 MEDICATIONS Current Outpatient Medications on File Prior to Visit Medication Sig Dispense Refill albuterol 108 (90 base) mcg/act inhaler Inhale 2 Puffs by mouth every 4 hour s as needed for Wheezing. 8.5 g 6 buPROPion (WELLBUTRIN XL) 300 MG XL tablet Take 300 mg by mouth every mornin g. estradiol (ESTRACE VAGINAL) 0.1 MG/GM vaginal cream Place 1 g vaginally 3 ti mes weekly. 42.5 g 3 hydrocodone-acetaminophen (NORCO) 10-325 MG per tablet Take 1 Tab by mouth e very 6 hours as needed for Pain. 120 Tab 0 Meth-Hyo-M Bl-Na Phos-Ph Daniel (URIBEL) [...] TABS Take 0.9 mg by mouth daily. spironolactone (ALDACTONE) 25 MG tablet Take 1 Tab by mouth daily. 30 Tab 1 temazepam (RESTORIL) 30 MG capsule Take 30 mg by mouth two times daily. valsartan-hydrochlorothiazide (DIOVAN-HCT) 160-12.5 MG per tablet TAKE 1 TAB LET BY MOUTH DAILY 90 Tab 1 venlafaxine (EFFEXOR XR) 150 MG XR capsule Take 300 mg by mouth daily. XANAX 0.5 MG TABS Take 0.5 mg by mouth nightly as needed for Sleep. No current facility-administered medications on file prior to visit. ALLERGIES Allergies as of 12/22/2018 - Reviewed 12/22/2018 Allergen Reaction Noted Sulfa antibiotics Hives 01/11/2013 Sulfa drugs cross reactors Hives 09/11/2008 Reglan [metoclopramide hcl] Anxiety and Other (See Comments) 09/11/2008 Adhesive tape Rash 01/11/2013 FAMILY HISTORY Family History Problem Relation Name Age of [...] Other Cancer Other Tuberculosis Other COPD Other SOCIAL HISTORY Social History Tobacco Use Smoking status: Never Smoker Smokeless tobacco: Never Used Substance Use Topics Alcohol use: Yes Alcohol/week: 0.6 oz Types: 1 Standard drinks or equivalent per week Drug use: No PHYSICAL EXAM VS : Blood pressure 126/62, pulse 76, temperature 98 F (36.7 C), temperature source Oral, height 4' 11" (1.499 m), weight 166 lb 6.4 oz (75.5 kg), last mens trual period 03/15/2000, SpO2 98 %. Physical Exam Constitutional: She is oriented to person, place, and time and well-developed, w ell-nourished, and in no distress. No distress. HENT: Head: Normocephalic and atraumatic. Right Ear: External ear normal. Left Ear: External ear normal. Mouth/Throat: Oropharynx is clear and moist. Bilateral nasal turbinates swollen/inflamed. Posterior oropharynx with irritatio n and cobblestoning. Eyes: Pupils are equal, round, and reactive to light. Conjunctivae are normal. N o scleral icterus. Neck: Neck supple. Cardiovascular: Normal rate, regular rhythm, normal heart sounds and intact dist al pulses. No murmur heard. Pulmonary/Chest: Effort normal and breath sounds normal. No respiratory distress . She has no wheezes. She has no rales. Abdominal: Soft. Bowel sounds are normal. She exhibits no distension. There is n o tenderness. There is no rebound. Musculoskeletal: She exhibits no edema. Lymphadenopathy: She has no cervical adenopathy. Neurological: She is alert and oriented to person, place, and time. Gait normal. Skin: Skin is warm and dry. She is not diaphoretic. Psychiatric: Mood, memory, affect and judgment normal. ADDITIONAL DATA Labs and Xrays were reviewed. Outside medical records including labs and imaging are reviewed and incorporated into HPI, assessment and plan. IMPRESSION AND PLAN Laura was seen today for medication question. Diagnoses and all orders for this visit: Bilateral renal masses - US RENAL BILATERAL; Future Recurrent UTI - hydrOXYzine (ATARAX) 25 MG tablet; Take 1 Tab by mouth at bedtime. Chronic interstitial cystitis - hydrOXYzine (ATARAX) 25 MG tablet; Take 1 Tab by mouth at bedtime. Mixed hyperlipidemia - atorvastatin (LIPITOR) 40 MG tablet; Take 1 Tab by mouth daily. Vitamin D deficiency - VITAMIN D 25 HYDROXY Anemia, unspecified type - CBC W/AUTO DIFF WITH PLATELETS Stage 2 chronic kidney disease - COMPREHENSIVE METABOLIC PANEL Fatigue, unspecified type - TSH REFLEX TO FREE T4 Irritability - we discussed talking to psychiatrist and if he is okay with it, weaning down v enlafaxine to 150 mg and then doing substitution with cymbalta as it is the same class but has more pain management benefits. Might need rapid titration given p rior effexor doses. Extensive review of side effects and risk for worsening of h er mood and SI, etc. She is aware and wants to discuss cymbalta switch - duloxetine (CYMBALTA) 30 MG capsule; Take 1 Cap by mouth daily. Risks, benefits, and common side effects of all new medications discussed and moody jonas given opportunity to ask any questions or concerns. They were answered to patient's satisfaction. RTC in 1-2 weeks if symptoms worsen, 4 weeks with me otherwise to titrate up. Kalyn Leija MD Internal Medicine [facility] documented in this encounter Plan of Treatment Care Team Description Date Type Specialty Dylon Boss MD [address] [place] [address] 12/24/2018 Office Visit Allergy Bret Fuller MD [address] [address] [phone] 12/29/2018 Office Visit Physical Medicine a nd Rehab Jake Day MD [address] [place] [address] [phone] 12/29/2018 Office Visit General Internal Me Adrian Moon MD [address] [facility] [address]LO[address], [place] [address] [phone] 01/18/2019 Office Visit Urology Jasmina Toure Pft-Pft Tech 01/20/2019 Procedure Pulmonology Visit-Tech Performed Ruy Green NP [address] [place] [address] [phone] 01/20/2019 Office Visit Sleep Center Rick Rose Jr., MD [address], [place] [address] [phone] 01/24/2019 Office Visit Physical Medicine a nd Rehab Order Schedule Name Type Priority Associated Diag noses 1 Occurrences starting 12/22/2018 until 12/23/2019 RENAL BILATERAL Imaging Routine Bilateral r enal masses Ordered: 12/22/2018 COMPREHENSIVE METABOLIC Lab Routine Stage 2 chronic kidney PANEL disease Ordered: 12/22/2018 VITAMIN D 25 HYDROXY Lab Routine Vitamin D deficiency Ordered: 12/22/2018 CBC W/AUTO DIFF WITH Lab Routine Anemia, u nspecified type PLATELETS Ordered: 12/22/2018 TSH REFLEX TO FREE T4 Lab Routine Fatigue, unspecified type Health Maintenance Due Date Last Done Comments [...] filedocumented in this encounter Visit Diagnoses Diagnosis Bilateral renal masses - Primary Unspecified disorder of kidney and uret er Recurrent UTI Urinary tract infection, site not speci fied Chronic interstitial cystitis Mixed hyperlipidemia Vitamin D deficiency Unspecified vitamin D deficiency Anemia, unspecified type Stage 2 chronic kidney disease Fatigue, unspecified type documented in this encounter Insurance Type Payer Benefit Subscriber ID Effective Phone Address Plan / Dates Group Medicare MEDICARE MEDICARE xxxxxxxxxxx 2018-P [address] resent [id number] [place] [address] Medicare UNITED HEALTHCARE AARP xxxxxxxxxxx 2018-P [address] MEDICARE resent [id number] SUPPLEMENT [facility] [place] [phone] documented as of this encounter Advance Directives Patient Supervisor Customer Services Explanation Type Date Recorded Advance Directives and Living Will Power of 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
--- OUTSIDE RECORDS SUMMARY | 2019-08-18 20:05 | XMS REPORT | Summary of Care ---
Author Author [facility] Organization [facility] Address Unknown Phone Unavailable Care Team Providers Care Medicaid Billing Specialist Name [employer], [employer] 34 [phone] uLcas Mcfarland MD PCP Unavailable Reason for Referral * (Routine) Referred By Contact Referred To Contact Status Reason Specialty Diagnoses / Procedures Nakia Aguilar, RAW SHELLFISH PREPARER-C [address] [address] [facility] [address], [place] [address] Pending Consult, Test, and Physical Therapy Diagnoses Treat / Orthopedic Status post total Surgery left knee replacement Left sided sciatica Reason for Visit * Reason Comments Post-op Follow-up Encounter Details Care Team Description Date Type Department Mahesh Esqueda MD [address] [address] Post-op Follow-up 12/13/2018 Office Visit [facility] Orthopedic Surgery [address], [place] [address] Allergies Comments Active Allergy Reactions Severity Noted Date Bandaids Adhesive Tape Rash Low 01/11/2013 Psych - pt states that she feels like she's coming out of her skin Metoclopramide Hcl Anxiety, Medium 09/11/2008 Other (See Comments) Sulfa Antibiotics Hives High 01/11/2013 Sulfa Drugs Cross Hives High 09/11/2008 Reactors documented as of this encounter (statuses as of 12/13/2018) Medications End Date Status Medication Sig Dispensed [...] mouth daily. 9 Coronary artery disease involving paimiut coronary artery of paimiut heart without angina pectoris Active hydrOXYzine (ATARAX) 25 TAKE 1 TABLET 30 Tab 0 MG tabletIndications: BY MOUTH AT 9 Recurrent UTI, Chronic BEDTIME interstitial cystitis Active naproxen (NAPROSYN) 500 Take 1 Tab by 60 Tab 2 MG tablet mouth 2 times 9 daily (with meals). Active valsartan (DIOVAN) 160 MG Take 1 [...] MG per DAILY tabletIndications: Essential hypertension, benign documented as of this encounter (statuses as of 12/13/2018) Active Problems Problem Noted Date Vitamin D [...] as of this encounter (statuses as of 12/13/2018) Resolved Problems Problem Noted Date Resolved Date Other malaise and fatigue 10/23/2008 11/30/2011 Diarrhea 09/27/2008 11/30/2011 Lip lesion 09/11/2008 11/30/2011 documented as of this encounter (statuses as of 12/13/2018) Immunizations Name Administration Dates Next Due Influenza [...] of this encounter Last Filed Vital Signs Not on filedocumented in this encounter Progress Notes * Nakia Aguilar, ALEX-Barbara - 12/13/2018 11:10 AM CDT Subjective: Laura Vuong, is a 68 y.o., female who presents today for evaluation of her left knee. She underwent [place] robotic assisted total knee arthroplasty on the left on 10/13/18. She presents today for follow up. She states that they have been doing well, however she has had a few falls after surgery. She also has had some difficulty with PT d/t her left sciatic nerve pain. She follows with Dr. Alvarenga, who is her pain management doctor. She is taking tramadol PRN for pain relief. She has also tried flexeril for her muscle spasm, which has not provided her with much relief. She continues to go to formal physical therapy for her left knee and would like to discuss proceeding with PT for her left sciatic nerve. She denies any fevers or chills. Objective: Alert and oriented x3. Ambulates with a steady gait. Incision is c,d,i No evidence of redness, warmth or swelling ROM 3-120 degrees, incision is well approximated NO laxity or instability with varus or valgus stressing Left SI joint tender, buttock pain and radicular symptoms with SLR Calves are soft, nontender, negative homans 5/5 strength in the bilateral LEs Dorsalis pedis and posterior tibialis pulses are palpable Imaging: Imaging was reviewed and revealed an intact and unchanged left total knee arthro plasty. No evidence of any loosening, wear or lysis. Patella centers adequately. Plan: Laura Vuong, is a 68 y.o., female who presents today for evaluation of her left knee s/p robotic assisted total knee arthroplasty on 10/13/18. She wa s seen and examined. Imaging was reviewed with the patient, which reveals an int act/unchanged left total knee arthroplasty. At this point, the patient is doing well and has minimal complaints of pain and is no longer using as assistive abeba mele. She has been cleared to go swimming and for travel. She is aware of dental prophylaxis prior to any teeth cleaning or dental procedures. She will follow up with us in 1 year with repeat imaging. She will call with questions or concerns. In regards to her left sciatica. She was provided with a new rx for PT to includ e the knee and the sciatica. If she does not get relief from the PT, it is fine for her to proceed with injections to the lower lumbar spine. She can continue t o f/u with Dr. Alvarenga. Dr. Esqueda was in to see the patient and is in agreement with the above stat ed plan. documented in this encounter Plan of Treatment Care Team Description Date Type Specialty Manju Mcfarland MD [address] [facility] [address] [place] [address] [phone] 12/14/2018 Office Visit Otolaryngology Kalyn Leija MD [address] [place] [address] 12/22/2018 Office Visit General Internal Me Donte Lennon MD [address] [facility] [address] [place] [address] 12/22/2018 Office Visit Allergy Bret Fuller MD [address] [place] [address] [phone] 12/29/2018 Office Visit Physical Medicine a nd Rehab Adrian Gallego MD [address] [facility] 10[address]LO[address], [place] [address] [phone] 01/18/2019 Office Visit Urology [place], [place] Pft-Pft Tech 01/20/2019 Procedure Pulmonology Visit-Tech Performed Ricki Kong MD [address] [facility] [address] [place], [place] [id number] 01/20/2019 Office Visit Sleep Center Order Schedule Name Type Priority Associated Diag noses Ordered: 12/13/2018 ORT - XR KNEE LEFT 4V DC Charge Routine Status p ost total left (CHARGE ONLY) knee replacement Order Schedule Name Type Priority Associated Diag noses Ordered: 12/13/2018 AMB REF TO PT EXTERNAL Outpatient Routine Status post total left Referral knee replacement Left sided sciatica Health Maintenance Due Date Last Done Comments [...] 11/09/2018, documented as of this encounter Results * XR KNEE LEFT AP, LAT, BOTH OBLIQUES (12/13/2018 11:58 AM CDT) Specimen Narrative Performed At For result, please reference physician' s note on the corresponding date. 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
--- OUTSIDE RECORDS SUMMARY | 2019-08-18 20:06 | XMS REPORT | Summary of Care ---
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 [employer], [employer] 34 [phone] Kalyn Leija MD PCP Reason for Referral * Consult, Test & Treat (Routine) Referred By Contact Referred To Contact Status Reason Specialty Diagnoses / Procedures Jake Day MD [address] [place] [address] [address] [place] [address] [facility] Psych Non Conf [address], [address] [place] [address] Pending Consult, Test, and Psychology Diagnoses Treat Current moderate episode of major depressive disorder without prior episode (HCCode) P rocedures ND PSYCHIATRIC DIAGNOSTIC EVALUATION Reason for Visit * Reason Comments Other swelling in hands Hypertension Knee Pain Encounter Details Care Team Description Date Type Department Jake Day MD [address] [place] [address] [phone] Other (swelling in hands); Hypertension; Knee Pain 12/29/2018 Office Visit [facility] General Internal Medicine [address] [facility]. 8th Floor; [address] [place] [address] Allergies Comments Active Allergy Reactions Severity Noted Date Bandaids Adhesive Tape Rash Low 01/11/2013 Psych - pt states that she feels like she's coming out of her skin Metoclopramide Hcl Anxiety, Medium 09/11/2008 Other (See Comments) Sulfa Antibiotics Hives High 01/11/2013 Sulfa Drugs Cross Hives High 09/11/2008 Reactors documented as of this encounter (statuses as of 12/29/2018) Medications End Date Status Medication Sig Dispensed [...] mouth daily. 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 Active spironolactone Take 1 Tab by 30 Tab 1 (ALDACTONE) 25 MG tablet mouth daily. 9 Active omeprazole (PRILOSEC) 40 TAKE 1 90 [...] per DAILY tabletIndications: Essential hypertension, benign Active atorvastatin (LIPITOR) 40 Take 1 Tab by 90 Tab 0 MG tabletIndications: mouth daily. 9 Mixed hyperlipidemia Active hydrocodone-acetaminophen Take 1 Tab by 120 Tab 0 (NORCO) 10-325 MG per mouth every 6 9 tablet hours as needed for Pain. Active hydrOXYzine (ATARAX) 25 Take 1 Tab by 30 Tab 1 MG tabletIndications: mouth at 9 Chronic interstitial bedtime. cystitis Active duloxetine (CYMBALTA) 30 Take 2 Caps 30 Cap 0 1 MG capsuleIndications: by mouth 9 Current moderate episode daily. of major depressive disorder without prior episode (HCCode) 12/29/2018 Discontinued hydrOXYzine (ATARAX) 25 Take 1 Tab by 30 Tab 1 MG tabletIndications: mouth at 9 Recurrent UTI, Chronic bedtime. interstitial cystitis 12/29/2018 Discontinued venlafaxine (EFFEXOR XR) Take 300 mg 0 150 MG XR capsule by mouth daily. 12/29/2018 Discontinued duloxetine (CYMBALTA) 30 Take 1 Cap by 30 Cap 0 MG capsule mouth daily. 9 documented as of this encounter (statuses as of 12/29/2018) Active Problems Problem Noted Date Vitamin D [...] as of this encounter (statuses as of 12/29/2018) Resolved Problems Problem Noted Date Resolved Date Other malaise and fatigue 10/23/2008 11/30/2011 Diarrhea 09/27/2008 11/30/2011 Lip lesion 09/11/2008 11/30/2011 documented as of this encounter (statuses as of 12/29/2018) Immunizations Name Administration Dates Next Due Influenza (whole) 11/15/2015 Influenza Hd 12/24/2018, 11/19/2017 Influenza Quad-PF 12/01/2016 Influenza whole 11/15/2015 Pneumococcal 13-valent 08/23/2018 Conjugate Vaccine Pneumococcal 11/09/2018, 08/24/2018 Polysaccharide documented as of this encounter Social History Date Tobacco Use Types Packs/Day Years Used Never Smoker Smokeless Tobacco: Never Used Drinks/Week oz/Week Comments Alcohol Use 1 Standard drinks or equivalent 0.6 Not Currently Sex Assigned at Date Recorded Not on file Industry Job Start Date Occupation Not on file Not on file Not on file Travel End Travel History Travel Start No recent travel history available. documented as of this encounter Last Filed Vital Signs Reading Time Taken Comments Vital Sign 160/80 12/29/2018 10:02 AM CDT Blood Pressure 64 12/29/2018 10:02 AM CDT Pulse 36.8 C (98.3 F) 12/29/2018 10:02 AM CDT Temperature - - Respiratory Rate 98% 12/29/2018 10:02 AM CDT Oxygen Saturation - - Inhaled Oxygen Concentration 76.3 kg (168 lb 3.2 oz) 12/29/2018 10:02 AM CDT Weight 149.9 cm (4' 11") 12/29/2018 10:02 AM CDT Height 33.97 12/29/2018 10:02 AM CDT Body Mass Index documented in this encounter Patient Instructions * Patient Instructions* Jake Day MD - 12/29/2018 10:30 AM CDT -Restart Atarax 25 mg at night to counteract overnight urinary symptoms -Discontinue Effexor Completely -Recommend continuing Cymbalta 30 mg daily, on January 04, increase dose to Cymb natalia 60 mg daily -Behavioral Therapy with Family Medicine Referral Provided C DT documented in this encounter Progress Notes * Jake Day MD - 12/29/2018 10:30 AM CDT CC: Chief Complaint Patient presents with Other swelling in hands Hypertension Knee Pain PCP: Kalyn Leija MD Last GIM visit: 12/22/2018 History of present illness: HPI Ms. Vuong is a 68 y.o. year old female with PMH as below who presents for fol lowup of recent medication change. 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 Alcohol: She reports that she drank about 0.6 oz of alcohol per week. Drug Use: She reports that she does not use drugs. Past Surgical History: Procedure Laterality Date HX ANGIOPLASTY 2007 cath X 2, total of 4 stents HX APPENDECTOMY HX BREAST SURGERY Right 2010 HX BUNIONECTOMY 1999 both feet HX CARDIAC CATHERIZATION Feb 20 Little blockage according to civil engineering specialist Dr. Hernandez HX CERVICAL FUSION HX HYSTERECTOMY, [...] as needed for Wheezing. 8.5 g 6 atorvastatin (LIPITOR) 40 MG tablet Take 1 Tab by mouth daily. 90 Tab 0 buPROPion (WELLBUTRIN XL) 300 MG XL tablet Take 300 mg by mouth every mornin g. estradiol (ESTRACE VAGINAL) 0.1 MG/GM vaginal cream Place 1 g vaginally 3 ti mes weekly. 42.5 g 3 hydrocodone-acetaminophen (NORCO) 10-325 MG per tablet Take 1 Tab by mouth e very 6 hours as needed for Pain. 120 Tab 0 Meth-Hyo-M Bl-Na Phos-Ph Adniel (URIBEL) 118 MG CAPS Take 118 mg [...] LET BY MOUTH DAILY 90 Tab 1 XANAX 0.5 MG TABS Take 0.5 mg by mouth nightly as needed for Sleep. No current facility-administered medications on file prior to visit. Review of Systems Constitutional: Negative for chills and fever. Respiratory: Negative for shortness of breath. Cardiovascular: Negative for chest pain and leg swelling. Gastrointestinal: Negative for nausea and vomiting. 10 point review of systems was performed and was negative except as above. PHYSICAL EXAM Vitals: 12/29/18 1002 BP: 160/80 BP Location: left arm Patient Position: Sitting Cuff Size: regular Pulse: 64 Temp: 98.3 F (36.8 C) TempSrc: Oral SpO2: 98% Weight: 168 lb 3.2 oz (76.3 kg) Height: 4' 11" (1.499 m) Body mass index is 33.97 kg/m. Physical Exam Constitutional: She is oriented to person, place, and time and well-developed, w ell-nourished, and in no distress. No distress. HENT: Head: Normocephalic and atraumatic. Right Ear: External ear normal. Left Ear: External ear normal. Eyes: Pupils are equal, round, and reactive to light. Conjunctivae and EOM are n ormal. Neck: Normal range of motion. Neck supple. Cardiovascular: Normal rate, regular rhythm, normal heart sounds and intact dist al pulses. Pulmonary/Chest: Effort normal and breath sounds normal. No respiratory distress . She has no wheezes. She has no rales. Abdominal: Soft. Bowel sounds are normal. She exhibits no distension. There is n o tenderness. Musculoskeletal: Normal range of motion. She exhibits no edema. Neurological: She is alert and oriented to person, place, and time. Skin: Skin is warm and dry. Psychiatric: Mood and affect normal. Nursing note and vitals reviewed. Labs and imaging reviewed in EPIC. ASSESSMENT/ PLAN Ms. Vuong is a 68 y.o. year old female with history of depression who is here for one week followup Diagnoses and all orders for this visit: Current moderate episode of major depressive disorder without prior episode ([facility] ode) - AMB REF TO FAMILY MEDICINE [facility] - duloxetine (CYMBALTA) 30 MG capsule; Take 2 Caps by mouth daily. Chronic interstitial cystitis - hydrOXYzine (ATARAX) 25 MG tablet; Take 1 Tab by mouth at bedtime. #Depression/Anxiety -Many of her acute symptoms are related to insufficient sleep which she identifi es as occurring since she ran out of her Atarax -Refilled Atarax for her Interstitial Cystitis to help with improving overnight awakenings to urinate (next sees Urology in 02/2019) -Recommend continuing Cymbalta 30 mg daily, on January 04, increase dose to Cymb natalia 60 mg daily -Behavioral Therapy with Family Medicine Referral Provided (patient had benefit from CBT in the past but the last time she had done this was in the 1990s) #HTN -Control Depression/Anxiety as above -Instructed patient on proper technique for home BP checking -Asked to keep a log about 3-4 hours after taking BP medications -Continue Current medication regimen The patient expressed understanding of the diagnosis and treatment plan. Warning signs and symptoms including ER precautions were provided. Questions were answe red to the patient's satisfaction; understanding of how to receive follow up car e was verified. Return in about 3 weeks (around 01/19/2019) for with Dr. Leija. Jake Day MD Internal Medicine [facility] 12/29/2018 10:50 AM C DT documented in this encounter Plan of Treatment Care Team Description Date Type Specialty 01/11/2019 Ancillary Radiology Procedure Adrian Gallego MD [address] [facility] [address] FLO[address], [place] [address] [phone] 01/18/2019 Office Visit Urology Jasmina Toure Pft-Pft Tech 01/20/2019 Procedure Pulmonology Visit-Tech Performed Ruy Green, ALEX [address] [place] [address] [phone] 01/20/2019 Office Visit Sleep Center Kalyn Leija MD [address] [place] [address] [phone] 01/24/2019 Office Visit General Internal Me olivia Rose, Rick Jackson Jr., MD [address] [address] [phone] 01/24/2019 Office Visit Physical Medicine a nd Rehab Bret Fuller MD [address] [address] [phone] 02/21/2019 Office Visit Physical Medicine a nd Rehab Order Schedule Name Type Priority Associated Diag noses Ordered: 12/29/2018 AMB REF TO FAMILY Outpatient Routine Current mode rate episode MEDICINE BEHAVIORAL Referral of major depressiv e HEALTH SILVIA disorder without prior episode (HCCode) Health Maintenance Due Date Last Done Comments MEDICARE AWV 1950 TETANUS SHOT (ADULT) 06/07/2017 06/08/2007 OSTEOPOROSIS SCREENING 2017 06/17/2016 BMI FOLLOW UP PLAN 02/02/2019 02/02/2018 MAMMOGRAM EVERY 2 YEARS 12/03/2019 12/02/2017 FALL SCREEN 12/30/2019 12/29/2018 COLON CANCER SCREENIN07/14/2025 07/15/2015 COLONOSCOPY PREVNAR >= 65 (PCV13) Completed 08/23/2018, 08/14 HEPATITIS C SCREENING Completed 10/13/2018, 09/15 PNEUMOVAX >=65 (PPSV23) Completed 11/09/2018, FLU VACCINE > 6 MONTHS Completed 12/24/2018, 08/2017, 11/19/2017, Additional history exists documented as of this encounter Results Not on filedocumented in this encounter Visit Diagnoses Diagnosis Current moderate episode of major depre ssive disorder without prior episode (HCCode) - Primary Chronic interstitial cystitis documented in this encounter Insurance Type Payer Benefit Subscriber ID Effective Phone Address Plan / Dates Group Medicare MEDICARE MEDICARE xxxxxxxxxxx 2018-P [address] resent [id number] [place] [address] Medicare UNITED HEALTHCARE AARP xxxxxxxxxxx 2018-P [address] MEDICARE resent [id number] SUPPLEMENT [facility] [place] [address] [phone] [place] ([place]) [place] [address] documented as of this encounter 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
--- OUTSIDE RECORDS SUMMARY | 2019-08-18 20:06 | XMS REPORT | Summary of Care ---
Author Author [facility] Organization [facility] Address Unknown Phone Unavailable Care Team Providers Care Weed Cutter Name Role Phone [employer] [phone] Kalyn Leija MD PCP Reason for Referral * Consult, Test & Treat (Urgent) Referred By Contact Referred To Contact Status Reason Specialty Diagnoses / Procedures Kalyn Leija MD [address] [place] [address] Dermatology [facility] [address] [place] [address] Authorization Consult, Test, and Dermatology Diagnoses Not Needed Treat Wound drainage Annular dermatitis Consult, Test, and Treat; Half Inch Ringworm and Staph P rocedures [place] OFFICE OUTPATIENT NEW 30 MINUTES Reason for Visit * Reason Comments Wound Check Left Leg Encounter Details Care Team Description Date Type Department Kalyn Leija MD [address] [place] [address] [phone] Wound Check (Left Leg) 05/23/2019 Office Visit [facility] General Internal Medicine [address] [facility] [address]; [address] [place] [address] Allergies Comments Active Allergy Reactions Severity Noted Date Bandaids Adhesive Tape Rash Low 01/11/2013 Psych - pt states that she feels like she's coming out of her skin Metoclopramide Hcl Anxiety, Medium 09/11/2008 Other (See Comments) Sulfa Antibiotics Hives High 01/11/2013 Sulfa Drugs Cross Hives High 09/11/2008 Reactors documented as of this encounter (statuses as of 05/29/2019) Medications End Date Status Medication Sig Dispensed Refills Start Date Active PREMARIN 0.9 MG Take 0.9 mg 0 TABSIndications: by mouth Menopause syndrome daily. Active XANAX 0.5 MG Take 0.5 mg 0 TABSIndications: Anxiety by mouth nightly as needed for Sleep. Active temazepam (RESTORIL) 30 Take 30 mg [...] vaginal creamIndications: times weekly. Vaginal atrophy Active metoprolol (TOPROL-XL) 25 Take 1 Tab by 90 Tab 3 MG XL tabletIndications: mouth daily. 9 Coronary artery disease involving aniak coronary artery of aniak heart without angina pectoris Active hydrOXYzine (ATARAX) 25 Take 1 Tab by 30 Tab 1 MG tabletIndications: mouth at 9 Chronic interstitial bedtime. cystitis Active valsartan (DIOVAN) 160 MG Take 160 mg 0 tablet by mouth daily. Active spironolactone Take 1 Tab by 30 Tab 3 (ALDACTONE) 50 MG mouth daily. 9 tabletIndications: Essential hypertension Active duloxetine (CYMBALTA) 60 Take 1 Cap by 90 Cap 3 MG capsuleIndications: mouth daily. 9 Depression, unspecified depression type Active omeprazole (PRILOSEC) 40 Take 1 Cap by 90 Cap 1 MG capsuleIndications: mouth daily. 0 Gastroesophageal reflux disease, esophagitis presence not specified Active VALTREX 500 MG Take 2 Tabs 40 Tab 3 tabletIndications: by mouth two 0 Genital herpes simplex, times daily. unspecified site Active hydrocodone-acetaminophen Take 1 Tab by 120 Tab 0 (NORCO) 10-325 MG per mouth every 6 0 tablet hours as needed for Pain. M54.15 Dx Active tramadol (ULTRAM) 50 MG TAKE 2 90 Tab 0 tablet TABLETS BY 0 MOUTH EVERY 8 HOURS NEEDED FOR PAIN Active doxycycline (ADOXA) 100 Take 1 Tab by 20 Tab 0 MG tabletIndications: mouth two 0 Wound drainage, Annular times daily. dermatitis Active Clotrimazole 1 % Apply 1 Tube 6 OINTIndications: Tinea topically to 0 feet and between toes twice daily for 2-4 weeks documented as of this encounter (statuses as of 05/29/2019) Active Problems Problem Noted Date ALONZO (obstructive sleep apnea) 01/20/2019 Last Assessment & Plan: Download reviewed and discussed with moody jonas - Good use and control of obstructive events. Pressure capping noted on some nights. Patient appreciates and acknowledges th e benefit from CPAP on sleep quality and daytime function. Patient commended on use and encouraged to continue Setting change - Autotitrating CPAP @ 9 -17 cm H2O Ordered new mask fitting for patient to address reported air leak discomfort. Insomnia 01/20/2019 Last Assessment & Plan: Patient prescribed temazepam, xanax, an d hydroxyzine for sleep by other providers. Patient educated on risks of polypharmacy and side effect profiles of these medications. Advised patient to discuss reducing medications/dosages with prescribing ph ysicians. Patient educated on sleep hygiene: "Try to wake up at the same time every morning. Try to go to bed at the same t amber every night. Avoid screen exposure for ~2hours before you want to go to sleep. Avoid activities in bed - try to reserve the bed and bedroo m for sleep only. If you're in bed but not sleepy, leave the bedroom and d o something relaxing until you feel sleepy - then go back to bed to sleep." Will schedule patient to see Dr. Liberty dockery. Vitamin D deficiency 02/03/2018 DCIS (ductal carcinoma [...] as of this encounter (statuses as of 05/29/2019) Resolved Problems Problem Noted Date Resolved Date Other malaise and fatigue 10/23/2008 11/30/2011 Diarrhea 09/27/2008 11/30/2011 Lip lesion 09/11/2008 11/30/2011 documented as of this encounter (statuses as of 05/29/2019) Immunizations Name Administration Dates Next Due Influenza (whole) 11/15/2015 Influenza Hd 12/24/2018, 11/19/2017 Influenza Quad-PF 12/01/2016 Influenza whole 11/15/2015 Pneumococcal 13-valent 08/23/2018 Conjugate Vaccine Pneumococcal 11/09/2018, 08/24/2018 Polysaccharide documented as of this encounter Social History Date Tobacco Use Types Packs/Day Years Used Never Smoker Smokeless Tobacco: Never Used Drinks/Week oz/Week Comments Alcohol Use 1 Standard drinks or equivalent 1.0 Not Currently Sex Assigned at Date Recorded Female 04/11/2019 3:10 PM [employer] Industry Job Start Date Occupation Not on file Not on file Not on file Travel End Travel History Travel Start No recent travel history available. documented as of this encounter Last Filed Vital Signs Reading Time Taken Comments Vital Sign 134/82 05/23/2019 12:11 PM CDT Blood Pressure 84 05/23/2019 12:11 PM CDT Pulse 36.5 C (97.7 F) 05/23/2019 12:11 PM CDT Temperature 16 05/23/2019 12:11 PM CDT Respiratory Rate 98% 05/23/2019 12:11 PM CDT Oxygen Saturation - - Inhaled Oxygen Concentration 75.8 kg (167 lb) 05/23/2019 12:11 PM CDT Weight 148.6 cm (4' 10.5") 05/23/2019 12:11 PM CDT Height 34.31 05/23/2019 12:11 PM CDT Body Mass Index documented in this encounter Progress Notes * Sylvia Spicer MA - 05/23/2019 12:34 PM CDT CC: Chief Complaint Patient presents with Wound Check Left Leg HISTORY OF PRESENT ILLNESS: Laura Vuong is a 68 y.o. 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 PAST MEDICAL HISTORY Past Medical History: Diagnosis Date Antibiotic long-term use Asthma Bladder infection Breast cancer (HCCode) Carpal tunnel syndrome 2009 Coronary artery disease s/p stents X 4 [...] CATHERIZATION Feb 20 Little blockage according to home theater installer Dr. Hernandez HX CERVICAL FUSION HX HYSTERECTOMY, TOTAL ABDOMINAL 2000 prolonged surgery HX SINUS SURGERY HX SPINE SURGERY HX STENT/ANGIOPLASTY HX TONSILLECTOMY HX TONSILLECTOMY AND ADENOIDECTOMY HX TOTAL KNEE REPLACEMENT Right 09/18/2016 HX TOTAL KNEE REPLACEMENT Left 10/13/2018 HX URETHRA SURGERY X3 MEDICATIONS Current Outpatient Medications on File Prior to Visit Medication Sig Dispense Refill duloxetine (CYMBALTA) 60 MG capsule Take 1 Cap by mouth daily. 90 Cap 3 estradiol (ESTRACE VAGINAL) 0.1 MG/GM vaginal cream Place 1 g vaginally 3 ti mes weekly. 42.5 g 3 hydrocodone-acetaminophen (NORCO) 10-325 MG per tablet Take 1 Tab by mouth e very 6 hours as needed for Pain. M54.15 Dx 120 Tab 0 hydrOXYzine (ATARAX) 25 MG tablet Take 1 Tab by mouth at bedtime. 30 Tab 1 Meth-Hyo-M Bl-Na Phos-Ph Daniel (URIBEL) 118 MG CAPS Take 118 mg by mouth four times daily. 120 Cap 3 metoprolol (TOPROL-XL) 25 MG XL tablet Take 1 Tab by mouth daily. 90 Tab 3 omeprazole (PRILOSEC) 40 MG capsule Take 1 Cap by mouth daily. 90 Cap 1 PREMARIN 0.9 MG TABS Take 0.9 mg by mouth daily. spironolactone (ALDACTONE) 50 MG tablet Take 1 Tab by mouth daily. 30 Tab 3 temazepam (RESTORIL) 30 MG capsule Take 30 mg by mouth two times daily. tramadol (ULTRAM) 50 MG tablet TAKE 2 TABLETS BY MOUTH EVERY 8 HOURS NEED ED FOR PAIN 90 Tab 0 valsartan (DIOVAN) 160 MG tablet Take 160 mg by mouth daily. VALTREX 500 MG tablet Take 2 Tabs by mouth two times daily. 40 Tab 3 XANAX 0.5 MG TABS Take 0.5 mg by mouth nightly as needed for Sleep. No current facility-administered medications on file prior to visit. ALLERGIES Allergies as of 05/23/2019 - Reviewed 05/20/2019 Allergen Reaction Noted Sulfa antibiotics Hives 01/11/2013 [...] Never Used Substance Use Topics Alcohol use: Not Currently Alcohol/week: 1.0 standard drinks Types: 1 Standard drinks or equivalent per week Drug use: No PHYSICAL EXAM VS : Blood pressure 134/82, pulse 84, temperature 97.7 F (36.5 C), temperatu re source Oral, resp. rate 16, height 4' 10.5" (1.486 m), weight 167 lb (75.8 kg ), last menstrual period 03/15/2000, SpO2 98 %. Body mass index is 34.31 kg/m. Physical Exam Constitutional: She is oriented to person, place, and time and well-developed, w ell-nourished, and in no distress. No distress. HENT: Head: Normocephalic and atraumatic. Eyes: Conjunctivae are normal. No scleral icterus. Neck: Neck supple. Pulmonary/Chest: Effort normal. No respiratory distress. Musculoskeletal: General: No edema. Neurological: She is alert and oriented to person, place, and time. Skin: Skin is warm and dry. She is not diaphoretic. Annular lesion that is quarter sized on left leg which is oozing serosanguinous discharge but has some purulence on her gauze Psychiatric: Mood, memory, affect and judgment normal. ADDITIONAL DATA Labs and Xrays were reviewed. Outside medical records including labs and imaging are reviewed and incorporated into HPI, assessment and plan. IMPRESSION AND PLAN Laura was seen today for wound check. Diagnoses and all orders for this visit: Wound drainage Annular Lesion - CULTURE, WOUND - swabbed - AMB REF TO DERMATOLOGY [facility] - doxycycline (ADOXA) 100 MG tablet; Take 1 Tab by mouth two times daily. - suspect Tinea given annular lesion so also will treat but suspect bacterial orozco perinfection for suspected strep vs staph superinfection - Clotrimazole 1 % OINT; Apply topically to feet and between toes twice bal y for 2-4 weeks Repeat labs for b12, D and CBC, CMP for evaluation above Risks, benefits, and common side effects of all new medications discussed and moody jonas given opportunity to ask any questions or concerns. They were answered to patient's satisfaction. RTC if not improving This visit encounter was performed with the assistance of kulwant Awan od. Kalyn Leija MD was present throughout encounter and performed full history and exam and performed all medical decision making. Kalyn Leija MD Internal Medicine [facility] documented in this encounter Plan of Treatment Care Team Description Date Type Specialty Rick Rose Jr., MD [address] [id number] 06/01/2019 Office Visit [facility] Ruy Green NP [address] [place] [address] [phone] 07/27/2019 Office Visit [facility] Order Schedule Name Type Priority Associated Diag noses Ordered: 05/23/2019 CULTURE, WOUND Microbiology Routine Wound drainage Order Schedule Name Type Priority Associated Diag noses Ordered: 05/23/2019 AMB REF TO DERMATOLOGY Outpatient Routine Wound d rainage [facility] Referral Annular dermatitis Health Maintenance Due Date Last Done Comments TETANUS SHOT (ADULT) 06/07/2017 06/08/2007 MEDICARE AWV (Initial) 09/13/2017 OSTEOPOROSIS SCREENING 2017 06/17/2016 BMI FOLLOW UP PLAN 02/02/2019 02/02/2018 MAMMOGRAM EVERY 2 YEARS 12/03/2019 12/02/2017 FALL SCREEN 05/03/2020 05/03/2019 COLON CANCER SCREENIN07/14/2025 07/15/2015 COLONOSCOPY PREVNAR >= 65 (PCV13) Completed 08/23/2018, 08/14 HEPATITIS C SCREENING Completed 10/13/2018 PNEUMOVAX >=65 (PPSV23) Completed 11/09/2018, FLU VACCINE > 6 MONTHS Completed 12/24/2018, 08/2017, 11/19/2017, Additional history exists documented as of this encounter Procedures Comments Procedure Name Priority Date/Time Associated Diag nosis VITAMIN D 25 HYDROXY Routine 05/23/2019 Vitamin D deficiency 1:59 PM CDT CBC W/AUTO DIFF WITH Routine 05/23/2019 Annular d ermatitis PLATELETS 1:59 PM CDT Coronary artery dis ease involving aniak coronary artery of an[place] heart without angina pectoris MAGNESIUM Routine 05/23/2019 Hypomagnesemia 1:59 PM CDT Hypokalemia VITAMIN B12 Routine 05/23/2019 B12 deficiency 1:59 PM CDT COMPREHENSIVE METABOLIC Routine 05/23/2019 Annula r dermatitis PANEL 1:59 PM CDT Coronary artery dis ease involving ani[place] coronary artery of an[place] heart without angina pectoris documented in this encounter Results * MAGNESIUM (05/23/2019 1:59 PM CDT) Pathologist [facility] MAGNESIUM 1.8 1.6 - 2.6 MG/DL [facility] Comment: Unless Otherwise Indicated, All Testing Performed At: [facility], [address] [place] [address] Senior Embedded Software Engineer: Holland Moralez M.D. CLIA Number [id number] [place]. [id number] Specimen Blood Performing Organization Address [facility] one Number [facility] [address] [place] [address] * VITAMIN B12 (05/23/2019 1:59 PM CDT) Pathologist [facility] VITAMIN B-12 889 200 - 950 PG/ML [facility] Comment: Unless Otherwise Indicated, All Testing Performed At: [facility], [address] [place] [address] Senior Embedded Software Engineer: Holland Moralez M.D. CLIA Number [id number] [place]. [id number] Specimen Blood Performing Organization Address [facility] one Number [facility] [address] [place] [id number] * VITAMIN D 25 HYDROXY (05/23/2019 1:59 PM CDT) VITAMIN D 43 SEE BELOW NG/ML [facility] 25-HYDROXY Comment: NOTE: 25-HYDROXYVITAMIN D ASSAY INCLUDES 25-HYDROXYVITAMIN D2 AND D3. METHODOLOGY IS CHEMILUMINESCENT IMMUNOASSAY. $$$$$ INTERPRETIVE RANGES $$$$$ PEDIATRIC (<17 YEARS) . . . . . . . . . . . NG/ML 20-100 ADULT: INSUFFICIENT . . . . . . . . . . . . . . NG/ML <20 SUBOPTIMAL . . . . . . . . . . . . . . . NG/ML 20-29 OPTIMAL . . . . . . . . . . . . . . . . . NG/ML 30-100 Unless Otherwise Indicated, All Testing Performed At: [facility], [address] [place] [address] Senior Embedded Software Engineer: Holland Moralez M.D. CLIA Number [id number] [facility] [place]. [id number] Specimen Blood Performing Organization Address City/State/[facility] one Number [address] [address] * COMPREHENSIVE METABOLIC PANEL (05/23/2019 1:59 PM CDT) Pathologist [facility] GLUCOSE 103 (H) 70 - 99 MG/DL C[facility] BLOOD UREA 16 8 - 23 MG/DL [facility] NITROGEN CREATININE 1.05 0.60 - 1.30 MG/DL C[facility] EGFR AA 64 >60 ML/MIN/1.73 CPL EGFR 55 (L) >60 ML/MIN/1.73 C[facility] BUN/CREAT RATIO 15 6 - 28 RATIO CPL SODIUM 141 133 - 146 MEQ/L CPL POTASSIUM 4.2 3.5 - 5.4 MEQ/L CPL CHLORIDE 97 95 - 107 MEQ/L CPL CO2 27 19 - 31 MEQ/L CPL CALCIUM 10.1 8.5 - 10.5 MG/DL CPL PROTEIN TOTAL 7.1 6.1 - 8.3 G/DL CPL ALBUMIN 5.0 3.5 - 5.2 G/DL CPL GLOBULINS, 2.1 1.9 - 3.7 G/DL CPL SERUM, TOTAL A/G RATIO 2.4 1.0 - 2.6 RATIO CPL BILIRUBIN TOTAL 0.7 <=1.2 MG/DL CPL ALKALINE 85 40 - 142 U/L CPL PHOSPHATASE AST (SGOT) 24 9 - 40 U/L CPL ALT (SGPT) 25 5 - 40 U/L CPL Comment: Unless Otherwise Indicated, All Testing Performed At: [facility], [address] [place] [address] Senior Embedded Software Engineer: Holland Moralez M.D. CLIA Number [id number] [place]. [id number] Specimen Blood Performing Organization Address [facility] one Number CPL [address] [place] [phone] * CBC W/AUTO DIFF WITH PLATELETS (05/23/2019 1:59 PM CDT) WHITE BLOOD 6.1 4.0 - 11.0 K/UL CPL CELL COUNT RED BLOOD CELL 4.12 3.80 - 5.10 M/UL CPL COUNT HEMOGLOBIN 12.7 11.5 - 15.5 G/DL CPL HEMATOCRIT 37.7 34.0 - 45.0 % CPL MEAN 91.5 80.0 - 100.0 fL CPL CORPUSCULAR VOLUME MEAN 30.8 27.0 - 34.0 PG CPL CORPUSCULAR HEMOGLOBIN MEAN 33.7 32.0 - 35.5 G/DL CPL CORPUSCULAR HEMOGLOBIN CONC RED CELL 13.7 11.0 - 15.0 % CPL DISTRIBUTION WIDTH NEUTROPHILS % 56.4 40.0 - 74.0 % CPL LYMPHOCYTES % 33.1 19.0 - 48.0 % CPL MONOCYTES % 8.0 4.0 - 13.0 % CPL EOSINOPHILS % 1.5 0.0 - 7.0 % CPL BASOPHILS % 1.0 0.0 - 2.0 % CPL PLATELET COUNT 214 130 - 400 K/UL CPL Comment: Unless Otherwise Indicated, All Testing Performed At: [facility], [address] [place] [address] Senior Embedded Software Engineer: Holland Moralez M.D. CLIA Number [id number] [place]. [id number] Specimen Blood Performing Organization Address [facility] one Number C[facility] [address] [place] [id number] documented in this encounter Visit Diagnoses Diagnosis Wound drainage - Primary Injury, other and unspecified, other sp ecified sites, including multiple Annular dermatitis Tinea Dermatophytosis of unspecified site Hypomagnesemia Disorders of magnesium metabolism Hypokalemia Hypopotassemia B12 deficiency Other B-complex deficiencies Vitamin D deficiency Unspecified vitamin D deficiency Coronary artery disease involving nativ e coronary artery of aniak heart without angina pectoris documented in this encounter Insurance Type Payer Benefit Subscriber ID Effective Phone Address Plan / Dates Group Medicare MEDICARE MEDICARE xxxxxxxxxxx 2018-P [address] resent [id number] [place] [address] Medicare [employer] AARP xxxxxxxxxxx 2018-P [address] MEDICARE resent [id number] [facility] [place] [address] [phone] [place] (Home) [place] [address] documented as of this encounter Advance Directives For more information, please contact: [phone] Patient Endoscopic Technician Explanation Type Date Recorded Advance Directives and Living Will Power of Piano Case And Bench Assembler
--- OUTSIDE RECORDS SUMMARY | 2019-08-18 20:06 | XMS REPORT | Summary of Care ---
Author Author [facility] Organization [facility] Address Unknown Phone Unavailable Care Team Providers Care Manager Financial Name [employer], [employer] Supplies [phone] Kalyn Leija MD PCP Reason for Referral * (Routine) Referred By Contact Referred To Contact Status Reason Specialty Diagnoses / Procedures Bret Fuller MD [address] [address] Pending Consult, Test, and Pain Management Diagnoses Treat Chronic radicular low back pain Reason for Visit * Reason Comments Back Pain Encounter Details Care Team Description Date Type Department Bret Fuller MD [address] [address] Back Pain 12/29/2018 Office Visit [facility] Physical Medicine & Rehabilitation [address] [facility]. 10th Floor, [place] [address] Allergies Comments Active Allergy Reactions [...] mouth daily. 9 Coronary artery disease involving [place] coronary artery of [place] heart without angina pectoris Active naproxen (NAPROSYN) [...] 9 tablet hours as needed for Pain. 12/29/2018 Discontinued hydrocodone-acetaminophen Take 1 Tab by 120 Tab 0 (NORCO) 10-325 MG per mouth every 6 9 tablet hours as needed for Pain. 12/29/2018 Discontinued hydrOXYzine (ATARAX) 25 Take 1 [...] Signs Reading Time Taken Comments Vital Sign 163/81 12/29/2018 9:22 AM CDT Blood Pressure 67 12/29/2018 9:22 AM CDT Pulse - - Temperature - - Respiratory Rate - - Oxygen Saturation - - Inhaled Oxygen Concentration 76.6 kg (168 lb 12.8 oz) 12/29/2018 9:22 AM CDT Weight 149.9 cm (4' 11") 12/29/2018 9:22 AM CDT Height 34.09 12/29/2018 9:22 AM CDT Body Mass Index documented in this encounter Progress Notes * Bret Fuller MD - 12/29/2018 9:15 AM CDT Here today for f/u RE: Chief Complaint Patient presents with Back Pain HPI: Patient continues to have radicular low back pain. She was unable to schedule a timely visit with Dr. Rose. She is also having some neuropathic type pain in thesurgical scar. Scars well he aled but there is one area that leads to light and-like pain. She continues phys ical therapy but is having some limitation due to the back pain. ROS: No fever, chills, nightsweats. No weight loss. No bowel or bladder incontinence. No weakness or numbness. Mood good. BP 163/81 | Pulse 67 | Ht 4' 11" (1.499 m) | Wt 168 lb 12.8 oz (76.6 kg) | L MP 03/15/2000 | BMI 34.09 kg/m NAD, pleasant and conversational . NC/AT, no Neck mass, no LAD Lungs; Respirations unlabored, equal. Abd: soft, nontender CV: warm, well perfused Ext: no edema. Neuro: Extremity sensation is intact, strength testing is limited in the left lo wer extremity due to her surgery. Skin: The patient surgical wound is healing well, there is one area that leads t o radiation of her pain, possible irritation a saphenous nerve infrapatellar bra nch. MSK: Back Exam Tenderness The patient is [...] 1. Chronic radicular low back pain M54.16 AMB REF TO PAIN MANAGEMENT EXTERNAL G89.29 CANCELED: AMB REF TO PAIN MANAGEMENT EXTERNAL 2. Primary osteoarthritis of both knees M17.0 Medications Signed in This Encounter Medications hydrocodone-acetaminophen (NORCO) 10-325 MG per tablet Sig: Take 1 Tab by mouth every 6 hours as needed for Pain. Dispense: 120 Tab Refill: 0 Particular low back pain, episodic, limiting physical therapy for her knee repla cement. She continues to use hydrocodone for knee pain and low back pain. Continues to have the radicular pain. This is limiting her physical therapy. A referral was made for epidural steroid injection. Dr. Rose was unable to see the patient so referral out to Dr. Roque was placed. Reviewed online prescribe activity database today. Discussed risks of opiates + BZ's. Given the recent surgery we'll monitor the symptoms of infrapatellar nerve branc hes the saphenous irritation. - -Counseled on diagnosis, etiology, contributing factors, treatment options. Bret Fuller M.D. PM&R Diagnostic/Interventional MSK ultrasound documented in this encounter Plan of Treatment Care Team Description Date Type Specialty 01/11/2019 Ancillary Radiology Procedure Adrian Gallego MD [address] [facility] 10[address]LO[address], [place] [address] [phone] 01/18/2019 Office Visit Urology A, [place] Pft-Pft Tech 01/20/2019 Procedure Pulmonology Visit-Tech Performed Ruy Green NP 7[address] [place] [address] [phone] 01/20/2019 Office Visit Sleep Center Kalyn Leija MD [address] [place] [address] [place] [address] [phone] 01/24/2019 Office Visit General Internal Me olivia Rose, Rick Jackson Jr., MD [address] [facility] [address] [address] [phone] 01/24/2019 Office Visit Physical Medicine a nd Rehab Bret Fuller MD [address] [address] 02/21/2019 Office Visit Physical Medicine a nd Rehab Order Schedule Name Type Priority Associated Diag noses Ordered: 12/29/2018 AMB REF TO PAIN Outpatient Routine Chronic radicu lar low MANAGEMENT EXTERNAL Referral back pain Health Maintenance Due Date [...] [address] resent [id number] [place] [address] Medicare UNITED HEALTHCARE AARP xxxxxxxxxxx 2018-P [address] MED[address]ARE resent [id number] [facility] [address] [phone] [place] (Home) [place] [address] documented as of this encounter Advance Directives 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
--- OUTSIDE RECORDS SUMMARY | 2019-08-18 20:06 | XMS REPORT | Summary of Care ---
Author Author [facility] Organization [facility] Address Unknown Phone Unavailable Care Team Providers Care Payroll Accounting Specialist Name [employer], [employer] [phone] Kalyn Leija MD PCP Reason for Visit * Reason Comments Back Pain * Consult, Test & Treat (Routine) Referred By Contact Referred To Contact Status Reason Specialty Diagnoses / [place] [address] [place] [id number] [place] [address] [place] [phone] Authorization Physical Diagnoses Not Needed Medicine and Radiculopathy, Rehab lumbar region Left L5S1 trans deon P rocedures TX INJECT ANES/STEROID FORAMEN LUMBAR/SACRAL W IMG GUIDE ,1 LEVEL PMR INJECTION FLUORO W/ RM Encounter Details Care Team Description Date Type Department Rick Rose Jr., MD [address] [address] Back Pain 01/11/2019 Office Visit [facility] Physical Medicine & Rehabilitation [address] [place] [address]. 10th [place], [place] [address] Allergies Comments Active Allergy Reactions Severity Noted Date Bandaids Adhesive Tape Rash Low 01/11/2013 Psych - pt states that she feels like she's coming out of her skin Metoclopramide Hcl Anxiety, Medium 09/11/2008 Other (See Comments) Sulfa Antibiotics Hives High 01/11/2013 Sulfa Drugs Cross Hives High 09/11/2008 Reactors documented as of this encounter (statuses as of 01/11/2019) Medications End Date Status Medication Sig Dispensed [...] mouth daily. 9 Coronary artery disease involving [place] coronary artery of [place] heart without angina pectoris Active naproxen (NAPROSYN) [...] major depressive disorder without prior episode (HCCode) Active potassium chloride SA Take 1 Tab by 60 Tab 0 (KLOR-CON M20) 20 MEQ mouth daily. 9 tablet Status Hospital, Clinic, or Ordered Dose Route Frequency Start End Date Other Facility Date Administered Medication Ended triamcinolone acetonide EP ONCE 01/12/20 1 (KENALOG-40) 40 mg/mL 60 19 9 mg, bupivacaine (PF) (MARCAINE) 0.5 % 2 mLIndications: Lumbar radiculopathy Ended iohexol (OMNIPAQUE) 300 1 mL EP ONCE 01/12/20 MG/ML injection 1 19 9 mLIndications: Lumbar radiculopathy documented as of this encounter (statuses as of 01/11/2019) Active Problems Problem Noted Date Vitamin D [...] as of this encounter (statuses as of 01/11/2019) Resolved Problems Problem Noted Date Resolved Date Other malaise and fatigue 10/23/2008 11/30/2011 Diarrhea 09/27/2008 11/30/2011 Lip lesion 09/11/2008 11/30/2011 documented as of this encounter (statuses as of 01/11/2019) Immunizations Name Administration Dates Next Due Influenza [...] Signs Reading Time Taken Comments Vital Sign 150/78 01/11/2019 10:37 AM CDT Blood Pressure 70 01/11/2019 10:37 AM CDT Pulse - - Temperature - - Respiratory Rate - - Oxygen Saturation - - Inhaled Oxygen Concentration 76.2 kg (168 lb) 01/11/2019 10:37 AM CDT Weight 149.9 cm (4' 11") 01/11/2019 10:37 AM CDT Height 33.93 01/11/2019 10:37 AM CDT Body Mass Index documented in this encounter Patient Instructions * Patient Instructions* Rick Rose Jr., MD - 01/11/2019 10:30 AM CDT Rick Rose Jr., MD [facility] PM&R [address] [place] [address] Today you had a spinal injection ACTIVITY: ? Avoid strenuous activity and lifting for 24 hours. Consult with your physicia n for any further instructions. ? If you have received sedation or pain medication, do not drive, drink alcohol, operate machinery, sign legal documents, or make any legal decisions for 24 hours. DAY OF TEST: ? You may resume your normal diet and take your regular medications unless direc tess otherwise. ? If you are tender over the site of the injection you may use an ice pack wrapp ed in a towel for 20 minutes, 3-4 times per day. ? Do not apply heat to the area. ? No tub bath or soaking in water (pool, Jacuzzi, etc) for the rest of the day. ? Your usual pain may get slightly worse over the next 24-72 hours. Call for an y unusual pain or discomfort beyond that time frame. ? You may experience prolonged drowsiness or confusion. Therefore, do not drive immediately after the procedure. ? There may be swelling, redness, drainage, or pain at the injection site or IV site. WHEN SHOULD I CALL SOMEONE? ? If you experience severe back pain, progressive numbness or weakness of your l egs, loss of control of your bladder or bowels, or signs of infection in the are a of the injection or IV site, go to the nearest ER or call 911. ? With slight increase in pain,(which is possible) but no other neurological larry nges, you may call our office. However, if you have any doubts or concerns please go to the nearest ER. FOLLOW UP: Call the office for a follow up appointment in approximately 2 weeks if you do not have an appointment already scheduled or unless otherwise stated by physician. YOU MUST BRING YOUR PAIN LOG TO YOUR FOLLOW UP APPOINTMENT. IF NOT, YOUR APPOINTMENT MAY BE CANCELLED. documented in this encounter Progress Notes * Rick Rose Jr., MD - 01/11/2019 10:30 AM CDT Date: 01/11/2019 Pre-procedure diagnosis: L5S1 Acute Lumbar Radiculopathy Left) Post-procedure diagnosis: Same Procedure: 1)L5S1 Transforaminal Epidural Steroid injection(Left) 2) S1 Transforaminal Epidural Steroid injection(Left) 3) Fluoroscopic Guidance for needle placement Complications: None CONSENT: Today's procedure, its potential benefits as well as its risks and pote ntial side effects were reviewed. Discussed risks of the procedure include bleed ing, infection, nerve irritation or damage, reactions to the medications, headac he, failure of the pain to improve, and exacerbation of the pain were explained to the patient, who verbalized understanding and who wished to proceed. Informed consent was signed. DESCRIPTION OF PROCEDURES: After written informed consent was obtained, the hedy ent was taken to the fluoroscopy suite and placed in the prone position. Anatomi belia landmarks were identified by way of fluoroscopy in multiple views. Strict as eptic technique was utilized. A 22-gauge 3-1/2-inch needle was then incrementally advanced using multiple fluo roscopic views from an oblique approach into the Left L5S1 lumbar intervertebra l space. Proper needle placement lateral to the 6 oclock position of the L5 p edicle in an AP view was confirmed with the aid of fluoroscopy. Both AP and lat eral views were used to confirm final needle placement. After negative aspirati on, Omnipaque 300contrast was injected which delineated epidural without vascula r flow and a normal epidurogram under fluoroscopy in the lateral and AP view. Af ter negative aspiration was reconfirmed, a 1.0 mL of 0.5% Bupivicaine and 1mL of 30 mg of Kenalog was slowly injected into the epidural space. A 22-gauge 3-1/2-inch needle was then incrementally advanced using multiple fluo roscopic views from an oblique approach into the Left posterior S1 foramen. Pro per needle placement in the superior lateral aspect of the S1 posterior neurofor amen in an AP view was confirmed with the aid of fluoroscopy. Both AP and later al views were used to confirm final needle placement. After negative aspiration , Omnipaque 300 contrast was injected which delineated epidural without vascular flow and a normal epidurogram under fluoroscopy in the lateral and AP view. Aft er negative aspiration was reconfirmed, a 1.0 mL of 0.5% Bupivicaine and 30 mg/m L of kenalog was slowly injected into the epidural space. All needles were removed intact. Hemostasis was maintained. There were no compli cations. The area was cleaned and a Band-Aid placed as necessary. The patient to lerated the procedure well and all needles were removed intact. After a period o f observation, the patient was noted to be hemodynamically stable and neurovascu larly intact following the procedure as prior to the procedure, and was ultimate ly discharged to home with supervision in good condition. The patient was instru cted to schedule an appointment in the office within 2 weeks. 1 cc of Omnipaque was used and 29 cc wasted. iRck Rose Jr., MD documented in this encounter Plan of Treatment Care Team Description Date Type Specialty Adrian Gallego MD [address] [facility] [address] [facility], [place] [address] [phone] 01/18/2019 Office Visit Urology 01/19/2019 Ancillary Radiology Procedure 01/19/2019 Ancillary Radiology Procedure A, [place] Pft-Pft Tech 01/20/2019 Procedure Pulmonology Visit-Tech Performed Ruy Green NP 7[address] [place] [address] 01/20/2019 Office Visit Sleep Center Kalyn Leija MD [address] [place] [address] [phone] 01/24/2019 Office Visit General Internal Me Rick Sloan Jr., MD [address] [address] [phone] 01/24/2019 Office Visit Physical Medicine a nd Rehab Bret Fuller MD [address] [address] [phone] 02/21/2019 Office Visit Physical Medicine a nd Rehab Health Maintenance Due Date Last Done Comments [...] filedocumented in this encounter Visit Diagnoses Diagnosis Lumbar radiculopathy - Primary Thoracic or lumbosacral neuritis or rad iculitis, unspecified documented in this encounter Administered Medications Action Date Dose Rate Site Medication Order MAR Action 01/11/2019 10:57 AM CDT 1 mL iohexol (OMNIPAQUE) 300 MG/ML injection Given by MD 1 mL 1 mL, Epidural, ONCE, 1 dose, 01/11/19 at 1100 01/11/2019 10:56 AM CDT triamcinolone acetonide (KENALOG-40) 40 Given by MD mg/mL 60 mg, bupivacaine (PF) (MARCAINE ) 0.5 % 2 mL Epidural, ONCE, 1 dose, 01/11/19 at 1100 documented in this encounter Insurance Type Payer Benefit Subscriber ID Effective Phone Address Plan / Dates Group Medicare MEDICARE MEDICARE xxxxxxxxxxx 2018-P [address] resent [id number] [place] [address] Medicare UNITED HEALTHCARE AARP xxxxxxxxxxx 2018-P [address] [place]ARE resent [id number] SUPPLEMENT [facility] [place] [address] [phone] [place] (Home) [place] [address] documented as of this encounter Advance Directives Patient Education Courses Sales Representative Explanation Type Date Recorded Advance Directives and Living Will Power of Polisher Sand
--- OUTSIDE RECORDS SUMMARY | 2019-08-18 20:06 | XMS REPORT | Summary of Care ---
Author Author [facility] Organization [facility] Address Unknown Phone Unavailable Care Team Providers Care Cloud Subject Matter Expert Name [employer] 34 [phone] Kalyn Leija MD PCP Reason for Visit * Reason Comments Hypertension Encounter Details Care Team Description Date Type Department Jake Day MD [address] [place] [address] Hypertension 01/20/2019 Office Visit [facility] General Internal Medicine [address] [facility]. 8th Floor; [address] [place] [address] Allergies Comments Active Allergy Reactions Severity Noted Date Bandaids Adhesive Tape Rash Low 01/11/2013 Psych - pt states that she feels like she's coming out of her skin Metoclopramide Hcl Anxiety, Medium 09/11/2008 Other (See Comments) Sulfa Antibiotics Hives High 01/11/2013 Sulfa Drugs Cross Hives High 09/11/2008 Reactors documented as of this encounter (statuses as of 01/20/2019) Medications End Date Status Medication Sig Dispensed [...] Take 118 mg 120 Cap 3 0 4/13/201 Daniel (URIBEL) 118 MG by mouth four [...] mouth daily. 9 Coronary artery disease involving kobuk coronary artery of [place] heart without angina pectoris Active omeprazole (PRILOSEC) 40 TAKE 1 90 Cap 1 0 MG capsuleIndications: CAPSULE BY 9 Encounter to establish MOUTH DAILY care with new doctor, Essential hypertension, benign, Dyslipidemia, History of coronary artery stent placement, Precordial pain, Nonspecific abnormal electrocardiogram (ECG) (EKG), ALONZO (obstructive sleep apnea), Increased BMI Active atorvastatin (LIPITOR) 40 Take 1 Tab [...] M20) 20 MEQ mouth daily. 9 tablet Active valsartan (DIOVAN) 160 MG Take 160 mg 0 tablet by mouth daily. Active amlodipine (NORVASC) 5 MG Take 1 Tab by 30 Tab 0 tabletIndications: mouth 9 Essential hypertension nightly. Active spironolactone Take 25 mg by 0 (ALDACTONE) 25 MG tablet mouth daily. 01/20/2019 Discontinued naproxen (NAPROSYN) 500 Take 1 Tab by 60 Tab 2 MG tablet mouth 2 times 9 daily (with meals). 01/20/2019 Discontinued spironolactone Take 1 Tab by 30 Tab 1 (ALDACTONE) 25 MG tablet mouth daily. 9 01/20/2019 Discontinued valsartan-hydrochlorothia TAKE 1 TABLET 90 Tab 1 zide (DIOVAN-HCT) BY MOUTH 9 160-12.5 MG per DAILY tabletIndications: Essential hypertension, benign 01/20/2019 Discontinued hydrochlorothiazide Take 12.5 mg 0 (MICROZIDE) 12.5 MG by mouth capsule daily. Status Hospital, Clinic, or Ordered Dose Route Frequency Start End Date Other Facility Date Administered Medication Ended clonidine (CATAPRES) 0.1 0.1 mg OR ONCE 01/21/20 MG tablet 0.1 19 9 mgIndications: Asymptomatic hypertensive urgency documented as of this encounter (statuses as of 01/20/2019) Active Problems Problem Noted Date ALONZO (obstructive [...] as of this encounter (statuses as of 01/20/2019) Resolved Problems Problem Noted Date Resolved Date Other malaise and fatigue 10/23/2008 11/30/2011 Diarrhea 09/27/2008 11/30/2011 Lip lesion 09/11/2008 11/30/2011 documented as of this encounter (statuses as of 01/20/2019) Immunizations Name Administration Dates Next Due Influenza [...] Signs Reading Time Taken Comments Vital Sign 168/80 01/20/2019 4:35 PM MANAGER OF APPLICATION DEVELOPMENT Blood Pressure 60 01/20/2019 3:22 PM MANAGER OF APPLICATION DEVELOPMENT Pulse 37.3 C (99.1 F) 01/20/2019 3:22 PM MANAGER OF APPLICATION DEVELOPMENT Temperature 16 01/20/2019 3:22 PM MANAGER OF APPLICATION DEVELOPMENT Respiratory Rate 97% 01/20/2019 3:22 PM MANAGER OF APPLICATION DEVELOPMENT Oxygen Saturation - - Inhaled Oxygen Concentration 77.1 kg (170 lb) 01/20/2019 3:22 PM MANAGER OF APPLICATION DEVELOPMENT Weight 149.9 cm (4' 11") 01/20/2019 3:22 PM MANAGER OF APPLICATION DEVELOPMENT Height 34.34 01/20/2019 3:22 PM MANAGER OF APPLICATION DEVELOPMENT Body Mass Index documented in this encounter Patient Instructions * Patient Instructions* Jake Day MD - 01/20/2019 3:30 PM MANAGER OF APPLICATION DEVELOPMENT -Continue with Valsartan 160 mg daily, spironolactone 25 mg daily -Start Amlodipine 5 mg nightly -Warning signs for ER include worsening headache, vision changes, chest pain C ST documented in this encounter Progress Notes * Jake Day MD - 01/20/2019 3:30 PM MANAGER OF APPLICATION DEVELOPMENT CC: Chief Complaint Patient presents with Hypertension PCP: Kalyn Leija MD Last GIM visit: 12/29/2018 History of present illness: HPI Ms. Vuong is a 68 y.o. year old female with PMH as below who presents for dusty vated blood pressure reading while in pulmonology clinic. #Hypertensive Urgency -She currently takes Valsartan 160 mg, Spironolactone 25 mg, Metoprolol 25 mg XL -She was previously taking Valsartan 160 and Hydrochlorothiazide 12.5 mg combine d pill but the HCTZ was discontinued due to low potassium on q 6 month readings -Since then she was started on spironolactone 25 mg daily but has noted that her BP readings on numerous clinic visits have been more elevated than usual until today where in pulm clinic she was consistently in the systolic 190s -She was brought in as an acute visit from their clinic -Notes a headache that is more consistent with her typical sinus congestion that is improving overall -Otherwise no vision changes, chest pain, shortness of breath Past Medical History: Diagnosis Date Antibiotic long-term [...] CATHERIZATION Feb 20 Little blockage according to credit and collection manager Dr. Hernandez HX CERVICAL FUSION HX HYSTERECTOMY, TOTAL ABDOMINAL 2000 prolonged surgery HX SINUS SURGERY HX SPINE SURGERY HX STENT/ANGIOPLASTY HX TONSILLECTOMY HX TONSILLECTOMY AND ADENOIDECTOMY HX TOTAL KNEE REPLACEMENT Right 09/18/2016 HX TOTAL KNEE REPLACEMENT Left 10/13/2018 HX URETHRA SURGERY X3 Current Outpatient Medications [...] 300 mg by mouth every mornin g. duloxetine (CYMBALTA) 30 MG capsule Take 2 Caps by mouth daily. 30 Cap 0 estradiol (ESTRACE VAGINAL) 0.1 MG/GM vaginal cream Place 1 g vaginally 3 ti mes weekly. (Patient not taking: Reported on 01/20/2019) 42.5 g 3 hydrocodone-acetaminophen (NORCO) 10-325 MG per tablet Take 1 Tab by mouth e very 6 hours as needed for Pain. (Patient not taking: Reported on 01/20/2019) 120 Tab 0 hydrOXYzine (ATARAX) 25 MG tablet Take 1 Tab by mouth at bedtime. 30 Tab 1 Meth-Hyo-M Bl-Na Phos-Ph Daniel (URIBEL) 118 MG CAPS Take 118 mg by mouth four times daily. (Patient not taking: Reported on 01/20/2019) 120 Cap 3 metoprolol (TOPROL-XL) 25 MG XL tablet Take 1 Tab by mouth daily. 90 Tab 3 omeprazole (PRILOSEC) 40 MG capsule TAKE 1 CAPSULE BY MOUTH DAILY 90 Cap 1 potassium chloride SA (KLOR-CON M20) 20 MEQ tablet Take 1 Tab by mouth daily . 60 Tab 0 PREMARIN 0.9 MG TABS Take 0.9 mg by mouth daily. spironolactone (ALDACTONE) 25 MG tablet Take 25 mg by mouth daily. temazepam (RESTORIL) 30 MG capsule Take 30 mg by mouth two times daily. valsartan (DIOVAN) 160 MG tablet Take 160 mg by mouth daily. XANAX 0.5 MG TABS Take 0.5 mg by mouth nightly as needed for Sleep. No current facility-administered medications on file prior to visit. Review of Systems Eyes: Negative for blurred vision and double vision. Respiratory: Negative for cough. Cardiovascular: Negative for chest pain and leg swelling. Neurological: Positive for headaches. Negative for dizziness and focal weakness. 10 point review of systems was performed and was negative except as above. PHYSICAL EXAM Vitals: 01/20/19 1522 01/20/19 1635 BP: 194/80 168/80 BP Location: left arm left arm Patient Position: Sitting Sitting Cuff Size: regular regular Pulse: 60 Resp: 16 Temp: 99.1 F (37.3 C) TempSrc: Oral SpO2: 97% Weight: 170 lb (77.1 kg) Height: 4' 11" (1.499 m) Body mass index is 34.34 kg/m. Physical Exam Constitutional: She is oriented to person, place, and time and well-developed, w ell-nourished, and in no distress. No distress. HENT: Head: Normocephalic and atraumatic. Right Ear: External ear normal. Left Ear: External ear normal. Eyes: Pupils are equal, round, and reactive to light. Conjunctivae and EOM are n ormal. No papilledema noted on non-dilated exam Neck: Normal range of motion. Neck supple. [...] 68 y.o. year old female who presents as an acute visit for hyp ertensive urgency. Diagnoses and all orders for this visit: Asymptomatic hypertensive urgency - clonidine (CATAPRES) 0.1 MG tablet 0.1 mg Essential hypertension - amlodipine (NORVASC) 5 MG tablet; Take 1 Tab by mouth nightly. Hypokalemia - BASIC METABOLIC PANEL Other orders - Discontinue: hydrochlorothiazide (MICROZIDE) 12.5 MG capsule; Take 12.5 mg by mouth daily. - valsartan (DIOVAN) 160 MG tablet; Take 160 mg by mouth daily. - spironolactone (ALDACTONE) 25 MG tablet; Take 25 mg by mouth daily. - Cancel: spironolactone (ALDACTONE) 25 MG tablet; Take 1 Tab by mouth daily . #Hypertensive urgency -BP was rechecked manually with patient sitting with both feet firmly on the malgorzata und, cuff size was appropriate, and she was given at least 5 minutes rest, consi stently 190s systolic, which was similar to reads in pulmonary clinic -I had the pleasure of seeing Ms. Vuong for an acute care visit when she was switching to Effexor 3 weeks prior; at that visit she was very agitated and tear ful, today she was in very good spirits and calm (so I don't think this was affe cting her BP read) -Given one dose of clonidine 0.1 mg PO -Patient with response in BP to 168/80 within 30 minutes -Continue with Valsartan 160 mg daily, spironolactone 25 mg daily -Start Amlodipine 5 mg nightly -Warning signs for ER include worsening headache, vision changes, chest pain -Will followup with Dr. Leija on Thursday will have BMP drawn t shivam to evaluate K for visit on Thursday The patient expressed understanding of the diagnosis and treatment plan. Warning signs and symptoms including ER precautions were provided. Questions were answe red to the patient's satisfaction; understanding of how to receive follow up car e was verified. No follow-ups on file. Jake Day MD Internal Medicine [facility] 01/20/2019 4:[address] documented in this encounter Plan of Treatment Care Team Description Date Type Specialty Kalyn Leija MD [address] [place], [place] [id number] 01/24/2019 Office Visit General Internal Me Rick Sloan Jr., MD [address] [address] [phone] 01/24/2019 Office Visit Physical Medicine [facility] Bret Fuller MD [address] [facility] [address] [address] [phone] 02/21/2019 Office Visit Physical Medicine [facility] Adrian Gallego MD [address] [facility] 10TH FLOOR, [address] [place], [place] [address] 118-02 04/12/2019 Office Visit Urology Ruy Green, ALEX [address] [place] [address] [phone] 07/27/2019 Office Visit Sleep Center Order Schedule Name Type Priority Associated Diag noses Ordered: 01/20/2019 BASIC METABOLIC PANEL Lab Routine Hypokale amanda Health Maintenance Due Date Last Done Comments MEDICARE AWV 1952 TETANUS SHOT (ADULT) 06/07/2017 06/08/2007 OSTEOPOROSIS SCREENING 2017 06/17/2016 BMI FOLLOW UP PLAN 02/02/2019 02/02/2018 MAMMOGRAM EVERY 2 YEARS 12/03/2019 12/02/2017 FALL SCREEN 01/12/2020 01/11/2019 COLON CANCER SCREENIN07/14/2025 07/15/2015 COLONOSCOPY PREVNAR >= 65 (PCV13) Completed 08/23/2018, 08/14 HEPATITIS C SCREENING Completed 10/13/2018, 09/15 PNEUMOVAX >=65 (PPSV23) Completed 11/09/2018, FLU VACCINE > 6 MONTHS Completed 12/24/2018, 08/2017, 11/19/2017, Additional history exists documented as of this encounter Results Not on filedocumented in this encounter Visit Diagnoses Diagnosis Asymptomatic hypertensive urgency - Gely sandoval Essential hypertension Unspecified essential hypertension Hypokalemia Hypopotassemia documented in this encounter Administered Medications Action Date Dose Rate Site Medication Order MAR Action 01/20/2019 5:00 PM MANAGER OF APPLICATION DEVELOPMENT 0.1 mg clonidine (CATAPRES) 0.1 MG tablet 0.1 Given mg 0.1 mg, ORAL, ONCE, 1 dose, Nicole 01/20/19 at 1600 documented in this encounter Insurance Type Payer Benefit Subscriber ID Effective Phone Address Plan / Dates Group Medicare MEDICARE MEDICARE xxxxxxxxxxx 2018-P [address] resent [id number] [place] [address] Medicare UNITED HEALTHCARE AARP xxxxxxxxxxx 2018-P [address] MEDICARE resent [id number] SUPPLEMENT [facility] [place] [phone] documented as of this encounter Advance Directives Patient Employment Advisor Explanation Type Date Recorded Advance Directives and Living Will Power of Presidential Helicopter Crew Chief
--- OUTSIDE RECORDS SUMMARY | 2019-08-18 20:06 | XMS REPORT | Summary of Care ---
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 Name Role Phone [employer] [phone] Kalyn Leija MD PCP Reason for Referral * Consult, Test & Treat (Urgent) Referred By Contact Referred To Contact Status Reason Specialty Diagnoses / Procedures Kalyn Leija MD [address] [place] [address] Tn Infectious Disease [address] [place] [address]; [address] [place] [address] Pending Consult, Test, and Infectious Diagnoses Treat Diseases Fever, unspecified fever cause Skin ulcer, unspecified ulcer stage (HCCode) Pyoderma P rocedures [place] OFFICE OUTPATIENT NEW 30 MINUTES [place] OFFICE OUTPATIENT NEW 30 MINUTES * Consult, Test & Treat (Urgent) Referred By Contact Referred To Contact Status Reason Specialty Diagnoses / Procedures Kalyn Leija MD [address] [address] Tn Cc General Surgery [address], [address] [place] [address] Pending Consult, Test, and General Surgery Diagnoses Treat Skin ulcer, unspecified ulcer stage (HCCode) P rocedures [place] OFFICE OUTPATIENT NEW 30 MINUTES Reason for Visit * Reason Comments Wound Check Encounter Details Care Team Description Date Type Department Kalyn Leija MD [address] [address] Wound Check 05/25/2019 Office Visit [facility] General Internal Medicine [address] [facility]. 8th Floor; [address] [place] [address] Allergies Comments Active Allergy Reactions Severity Noted Date Bandaids Adhesive Tape Rash Low 01/11/2013 Psych - pt states that she feels like she's coming out of her skin Metoclopramide Hcl Anxiety, Medium 09/11/2008 Other (See Comments) Sulfa Antibiotics Hives High 01/11/2013 Sulfa Drugs Cross Hives High 09/11/2008 Reactors documented as of this encounter (statuses as of 05/31/2019) Medications End Date Status Medication Sig Dispensed [...] mouth daily. 9 Coronary artery disease involving algaaciq coronary artery of algaaciq heart without angina pectoris Active hydrOXYzine (ATARAX) [...] Take 1 Cap by 90 Cap 3 11/22/201 MG capsuleIndications: mouth daily. 9 Depression, unspecified [...] between toes twice daily for 2-4 weeks 06/04/2019 Active levofloxacin (LEVAQUIN) Take 1 Tab by 10 Tab 0 500 MG tabletIndications: mouth daily 0 Fever, unspecified fever for 10 days. 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 documented as of this encounter Last Filed Vital Signs Reading Time Taken Comments Vital Sign 142/80 05/25/2019 10:51 AM CDT Blood Pressure 80 05/25/2019 10:51 AM CDT Pulse 36.7 C (98.1 F) 05/25/2019 10:51 AM CDT Temperature - - Respiratory Rate 98% 05/25/2019 10:51 AM CDT Oxygen Saturation - - Inhaled Oxygen Concentration 75.8 kg (167 lb) 05/25/2019 10:51 AM CDT Weight 148.6 cm (4' 10.5") 05/25/2019 10:51 AM CDT Height 34.31 05/25/2019 10:51 AM CDT Body Mass Index documented in this encounter Progress Notes * Kalyn Leija MD - 05/25/2019 11:10 AM CDT CC: Chief Complaint Patient presents with Wound Check HISTORY OF PRESENT ILLNESS: Laura Vuong is a 68 y.o. 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 Hernandez HX CERVICAL FUSION HX HYSTERECTOMY, TOTAL ABDOMINAL 2000 prolonged surgery HX SINUS SURGERY HX SPINE SURGERY HX STENT/ANGIOPLASTY HX TONSILLECTOMY HX TONSILLECTOMY AND ADENOIDECTOMY HX TOTAL KNEE REPLACEMENT Right 09/18/2016 HX TOTAL KNEE REPLACEMENT Left 10/13/2018 HX URETHRA SURGERY X3 MEDICATIONS Current Outpatient Medications on File Prior to Visit Medication Sig Dispense Refill Clotrimazole 1 % OINT Apply topically to feet and between toes twice daily f or 2-4 weeks 1 Tube 6 doxycycline (ADOXA) 100 MG tablet Take 1 Tab by mouth two times daily. 20 Ta b 0 duloxetine (CYMBALTA) 60 MG capsule Take 1 [...] prior to visit. ALLERGIES Allergies as of 05/25/2019 - Reviewed 05/25/2019 Allergen Reaction Noted Sulfa antibiotics Hives 01/11/2013 [...] No PHYSICAL EXAM VS : Blood pressure 142/80, pulse 80, temperature 98.1 F (36.7 C), temperatu re source Oral, height 4' 10.5" (1.486 m), weight 167 lb (75.8 kg), last menstru al period 03/15/2000, SpO2 98 %. Body mass [...] Diagnoses and all orders for this visit: Fever, unspecified fever cause Worsening Skin wound vs ulcer DDX: Atypical bacterial, Pyoderma gangrenosum - started as a bump that grew and ulcered and became a wound, but has multiple p ossible exposures to salt water fish/bones, racoons/possums - having chills, need to r/o bacteremia - CBC, CMP, blood cultures x 2 - consider levofloxacin 500 mg daily for atypical infection given possible anaer obic organism exposure - if dermatology team is unsure or concerned for infection as well, will need to go to ER and I will call to given then further information Risks, benefits, and common side effects of all new medications discussed and moody jonas given opportunity to ask any questions or concerns. They were answered to patient's satisfaction. RTC if not improving Kalyn Leija MD Internal Medicine [facility] documented in this encounter Plan of Treatment Care Team Description Date Type Specialty Kalyn Leija MD [address] [place] [address] 05/31/2019 Office Visit General Internal Me Rick Sloan Jr., MD [address] [address] [phone] 06/01/2019 Office Visit Physical Medicine [facility] Ruy Green, A[facility] [address] [place] [address] [phone] 07/27/2019 Office Visit Sleep Center Order Schedule Name Type Priority Associated Diag noses Ordered: 05/25/2019 CULTURE, BLOOD Microbiology STAT Fever, unspecif ied fever cause Ordered: 05/25/2019 CULTURE, BLOOD Microbiology STAT Fever, unspecif ied fever cause Ordered: 05/25/2019 CBC W/AUTO DIFF WITH Lab STAT Fever, un specified fever PLATELETS cause Ordered: 05/25/2019 COMPREHENSIVE METABOLIC Lab STAT Fever, unspecified fever PANEL cause Order Schedule Name Type Priority Associated Diag noses Ordered: 05/25/2019 AMB REF TO GENERAL Outpatient Routine Skin ulcer, unspecified SURGERY [facility] Referral ulcer stage (HCCode ) Ordered: 05/25/2019 AMB REF TO INFECTIOUS Outpatient Routine Fever, u nspecified fever DISEASE [facility] Referral cause Skin ulcer, unspecified ulcer stage (HCCode) Pyoderma Health Maintenance Due Date Last Done Comments [...] filedocumented in this encounter Visit Diagnoses Diagnosis Fever, unspecified fever cause - Primar y Skin ulcer, unspecified ulcer stage (HC Code) Pyoderma Pyoderma, unspecified documented in this encounter Insurance Type Payer Benefit Subscriber ID Effective Phone Address Plan / Dates Group Medicare MEDICARE MEDICARE xxxxxxxxxxx 2018-P [address] resent [id number] [place] [address] Medicare UNITED HEALTHCARE AARP xxxxxxxxxxx 2018-P [address] MEDICARE resent [id number] SUPPLEMENT [facility] [place] [phone] documented as of this encounter Advance Directives For more information, please contact: [phone] Patient News Reel Cameraman Explanation Type Date Recorded Advance Directives and Living Will Power of Appliance Service Supervisor
--- OUTSIDE RECORDS SUMMARY | 2019-08-18 20:06 | XMS REPORT | Summary of Care ---
Author Author [facility] Organization [facility] Address Unknown Phone Unavailable Care Team Providers Care Coremaking Supervisor Name [employer], [employer] Supplies [phone] Kalyn Leija MD PCP Reason for Referral * Radiology Services (Routine) Referred By Contact Referred To Contact Status Reason Specialty Diagnoses / Procedures Dylon Boss MD [address] [facility] [address] [place] [address] Ct Imaging [address] [facility] [address] [place] [phone] Pending Radiology Diagnoses Allergic rhinitis, unspecified seasonality, unspecified trigger -[facility] P rocedures CT SINUS WO CONTRAST Reason for Visit * Reason Comments Initial Consultation allergy testing Encounter Details Care Team Description Date Type Department Dylon Boss MD [address] [facility] [address] [place] [address] Initial Consultation (allergy testing ) 12/24/2018 Office Visit [facility] Allergy [address] [facility] 8th [place] [address] [place] [address] Allergies Comments Active Allergy Reactions Severity Noted Date Bandaids Adhesive Tape Rash Low 01/11/2013 Psych - pt states that she feels like she's coming out of her skin Metoclopramide Hcl Anxiety, Medium 09/11/2008 Other (See Comments) Sulfa Antibiotics Hives High 01/11/2013 Sulfa Drugs Cross Hives High 09/11/2008 Reactors documented as of this encounter (statuses as of 12/24/2018) Medications End Date Status Medication Sig Dispensed [...] mouth daily. 9 Coronary artery disease involving [place] coronary artery of [place] heart without angina pectoris Active naproxen (NAPROSYN) [...] as of this encounter (statuses as of 12/24/2018) Active Problems Problem Noted Date Vitamin D [...] as of this encounter (statuses as of 12/24/2018) Resolved Problems Problem Noted Date Resolved Date Other malaise and fatigue 10/23/2008 11/30/2011 Diarrhea 09/27/2008 11/30/2011 Lip lesion 09/11/2008 11/30/2011 documented as of this encounter (statuses as of 12/24/2018) Immunizations Name Administration Dates Next Due Influenza [...] Signs Reading Time Taken Comments Vital Sign 146/78 12/24/2018 11:04 AM CDT Blood Pressure 77 12/24/2018 11:04 AM CDT Pulse 36.7 C (98 F) 12/24/2018 11:04 AM CDT Temperature 17 12/24/2018 11:04 AM CDT Respiratory Rate 98% 12/24/2018 11:04 AM CDT Oxygen Saturation - - Inhaled Oxygen Concentration 76.6 kg (168 lb 12.8 oz) 12/24/2018 11:04 AM CDT Weight 149.9 cm (4' 11") 12/24/2018 11:04 AM CDT Height 34.09 12/24/2018 11:04 AM CDT Body Mass Index documented in this encounter Progress Notes * Dylon Boss MD - 12/24/2018 11:00 AM CDT CC: Patient presents to clinic today for allergic rhinitis symptoms Chief Complaint Patient presents with Initial Consultation . HPI: Patient is a 68 y.o. female here today with complaints of many year history of rhinorrhea, nasal congestion, itching in her ears and throat, occasional sne ezing. Previously has had 2 allergists and was on immunotherapy for a number of years. She notes previous testing was positive for molds, cats, dog, mesquite an d a number of other pollens. Was on IT until about 15 years ago. Now symptoms se em to be getting worse and would like to get back on immunotherapy. Has recently done a 2 week trial of both fluticasone and azelastine without much benefit. Do es not like to take long acting antihistamines due to bladder issues. Takes [place] dryl frequently. Also notes wheezing during the months of January and July. Power win been diagnosed with COPD or asthma. Never smoker but has long history of secon d hand exposure via parents and previous . Past diagnostic testing includes: Skin testing Immunotherapy - Yes ENVIRONMENTAL HISTORY: Pets: Cats Visible mold growth: Yes Cockroaches: No Smokers: No Medications: Outpatient Medications Prior to Visit Medication Sig Dispense Refill albuterol Inhale 2 Puffs by mouth every 4 hours as needed for Wheezing. 8.5 g 6 atorvastatin Take 1 Tab by mouth daily. 90 Tab 0 buPROPion Take 300 mg by mouth every morning. duloxetine Take 1 Cap by mouth daily. [address] 1 g vaginally 3 times weekly. 42.5 g 3 hydrocodone-acetaminophen Take 1 Tab by mouth every 6 hours as needed for Pa in. 120 Tab 0 hydrOXYzine Take 1 Tab by mouth at bedtime. 30 Tab 1 URIBEL Take 118 mg by mouth four times daily. 120 Cap 3 metoprolol Take 1 Tab by mouth daily. 90 Tab 3 naproxen Take 1 Tab by mouth 2 times daily (with meals). 60 Tab 2 omeprazole TAKE 1 CAPSULE BY MOUTH DAILY 90 Cap 1 PREMARIN Take 0.9 mg by mouth daily. spironolactone Take 1 Tab by mouth daily. 30 Tab 1 temazepam Take 30 mg by mouth two times daily. valsartan-hydrochlorothiazide TAKE 1 TABLET BY MOUTH DAILY 90 Tab 1 venlafaxine Take 300 mg by mouth daily. XANAX Take 0.5 mg by mouth nightly as needed for Sleep. No facility-administered medications prior to visit. Allergies: Sulfa antibiotics; Sulfa drugs cross reactors; Reglan [metoclopramide hcl]; and Adhesive tape PMFSHx: Past Medical History: Diagnosis Date Antibiotic long-term use Asthma Bladder infection Breast cancer (HCCode) Carpal tunnel syndrome 2008 Coronary artery disease s/p stents X 4 Depression Genital herpes Head injury, unspecified Heart disease, unspecified High cholesterol Hyperlipidemia Hypertension Mass ALONZO (obstructive sleep apnea) 2009 - AHI 13.7, SpO2 rios 84% - HST done in 2018 - Respiratory event index (R EI)* of 8.9 events/ hour, and the supine BALWINDER was 19.5 events/ hour. The SpO2 nad ir was 82.0% Peptic ulcer disease PUD (peptic ulcer disease) 2007 2o to Plavix plus Ibuprofen Seasonal allergic rhinitis Sensorineural hearing loss, asymmetrical 04/21/2013 Unspecified essential hypertension Past Surgical History: Past Surgical History: Procedure Laterality Date HX ANGIOPLASTY 2007 cath X 2, total of 4 stents HX APPENDECTOMY HX BREAST SURGERY Right 2010 HX BUNIONECTOMY 1998 both feet HX CARDIAC CATHERIZATION Feb 20 Little blockage according to special loan officer Dr. Hernandez HX CERVICAL FUSION HX HYSTERECTOMY, TOTAL ABDOMINAL 2000 prolonged surgery HX SINUS SURGERY HX SPINE SURGERY HX STENT/ANGIOPLASTY HX TONSILLECTOMY HX TONSILLECTOMY AND ADENOIDECTOMY HX TOTAL KNEE REPLACEMENT Right 09/18/2016 HX URETHRA SURGERY X3 Social History: Social History Socioeconomic History Marital status: Spouse name: Not on file Number of children: Not on file Years of education: Not on file Highest education level: Not on file Occupational History Not on file Social Needs Financial resource strain: Not on file Food insecurity: Worry: Not on file Inability: Not on file Transportation needs: Medical: Not on file Non-medical: Not on file Tobacco Use Smoking status: Never Smoker Smokeless tobacco: Never Used Substance and Sexual Activity Alcohol use: Yes Alcohol/week: 0.6 oz Types: 1 Standard drinks or equivalent per week Drug use: No Sexual activity: Yes Partners: Male Lifestyle Physical activity: Days per week: Not on file Minutes per session: Not on file Stress: Not on file Relationships Social connections: Talks on phone: Not on file Gets together: Not on file Attends confucianism service: Not on file Active member of club or organization: Not on file Attends meetings of clubs or organizations: Not on file Relationship status: Not on file Intimate partner violence: Fear of current or ex partner: Not on file Emotionally abused: Not on file Physically abused: Not on file Forced sexual activity: Not on file Other Topics Concerns: Not on file Social History Narrative Born: [facility]. Education: 12th grade. Occupation: Retired. Caffeine: Drinks per day 3 Exercise: Type: none Frequency, distance, or amount none Habits: Use seat belts 80-100%* 50-80% Less than 50% Substance Use Topics: Social History Tobacco Use Smoking Status Never Smoker Smokeless Tobacco Never Used Family History: Family History Problem Relation Name [...] Other Cancer Other Tuberculosis Other COPD Other REVIEW OF SYSTEMS General ROS: negative for - chills, fatigue, fever, hot flashes, malaise, night sweats, sleep disturbance, weight gain or weight loss Ophthalmic ROS: negative for - blurry vision, decreased vision, dry eyes, excess dick tearing, itchy eyes or photophobia ENT ROS: negative for - epistaxis, headaches, hearing change, nasal congestion, nasal discharge, nasal polyps, oral lesions, sinus pain, sneezing, sore throat, tinnitus, vertigo, visual changes or vocal changes Allergy and Immunology ROS: +congestion, postnasal drip or seasonal allergies Hematological and Lymphatic ROS: negative for - bruising, jaundice, pallor, swol meli lymph nodes or weight loss Endocrine ROS: negative for - malaise/lethargy, mood swings, palpitations, skin changes or unexpected weight changes Respiratory ROS:+wheezing Cardiovascular ROS: negative for - chest pain, dyspnea on exertion, edema, irreg ular heartbeat, loss of consciousness, orthopnea, palpitations, rapid heart rate or shortness of breath Gastrointestinal ROS: negative for - abdominal pain, blood in stools, constipati on, diarrhea, gas/bloating, heartburn, hematemesis, melena, nausea/vomiting or s wallowing difficulty/pain Musculoskeletal ROS: negative for - joint pain, joint stiffness, joint swelling, muscle pain or muscular weakness Neurological ROS: negative for - dizziness, headaches or numbness/tingling Dermatological ROS: negative for - dry skin, eczema, pruritus,sweeling or rash, urticaria PHYSICAL EXAM VITALS: Vital Signs Height: 4' 11" (149.9 cm) Weight - Scale: 168 lb 12.8 oz (76.6 kg) Temp: 98 F (36.7 C) Pulse: 77 Respirations: 17 BP: 146/78 Patient Position: Sitting Cuff Size: regular BP Location: left arm General: AAOx3, NAD Head: normocephalic, atraumatic Eyes: PERRLA, EOMI Ears: bilateral TM's and external ear canals normal Nose: Pale and edematous inferior turbinates Oropharynx: mucous membranes moist, pharynx normal without lesions Neck: supple, no bruit, no lymphadenopathy or thyromegaly Cardiovascular: peripheral pulses palpable and normal Lungs: CTAB, no wheezing or crackles; good air movement Abdomen: soft, nontender Lymphatic: non-palpable nodes in neck, clavicular, axillary or inguinal regions Extremities: No edema Skin: No rashes Neurologic: Nonfocal Psychiatric: alert, oriented, with appropriate affect LABS: Previous IgE 29 [place]: FVC 2.10L 82% predicted FEV1 2.56L 81% predicted Ratio 0.75 PEFR 1.97L/S 38% predited FEF 25-75% 1.45L/S 80% predicted Skin test: Negative skin test with good histamine controls ASSESSMENT/PLAN: 68y/o woman likely with non-allergic rhinitis. Will check CT sinus and Zone 6 pa juan to see if there is any evidence of CRS or allergic rhinitis. In the meantime will advise BID use of Flonase and Astelin along with BID saline rinses every d ay. Will see back in 3 months. Can consider antifungals for possible airway myco sis as she does have mold in her home. If CT is positive for CRS then there is e madan more justification for a trial of an antifungal such as terbinafine. RTC 3 months documented in this encounter Plan of Treatment Care Team Description Date Type Specialty Bret Fuller MD [address] [place], [place] [id number] 12/29/2018 Office Visit Physical Medicine a nd Rehab Jake Day MD [address] [place], [place] [id number] 12/29/2018 Office Visit General Internal Me dicine 01/11/2019 Ancillary Radiology Procedure Gallego, Christopher P, MD [address] [facility] 10TH FLO[address], [address] [place], [place] [id number] 01/18/2019 Office Visit Urology Jasmina Toure Pft-Pft Tech 01/20/2019 Procedure Pulmonology Visit-Tech Performed Ruy Green NP [address] [place], [place] [id number] 01/20/2019 Office Visit Sleep Center Rick Rose Jr., MD [address], [place] [id number] 01/24/2019 Office Visit Physical Medicine a nd Rehab Date/Time Name Type Priority Associated Diag noses 12/24/2018 FL BREATHING CAPACITY FL Charge Routine Allergic rhinitis, TEST unspecified seasonality, unspecified trigger Order Schedule Name Type Priority Associated Diag noses Ordered: 12/24/2018 FL PERCUTANEOUS TESTS FL Charge Routine Allergic rhinitis, W/ALLERGENIC EXTRACTS unspecified seasonality, unspecified trigger Expected: 01/24/2019 (Approximate), Expi res: 07/25/2019 CT SINUS WO CONTRAST Imaging Routine Allergic rhinitis, unspecified seasonality, unspecified trigger Ordered: 12/24/2018 ALLERGENS, ZONE 6 Lab Routine Allergic rhi nitis, unspecified seasonality, unspecified trigger Health Maintenance Due Date Last Done Comments [...] filedocumented in this encounter Visit Diagnoses Diagnosis Allergic rhinitis, unspecified seasonal ity, unspecified trigger - Primary Non-allergic rhinitis Chronic rhinitis documented in this encounter Insurance Type Payer Benefit Subscriber ID Effective Phone Address Plan / Dates Group Medicare MEDICARE MEDICARE xxxxxxxxxxx 2018-P [address] resent [id number] [place] [address] Medicare UNITED HEALTHCARE AARP xxxxxxxxxxx 2018-P [address] MEDICARE resent [id number] [facility] [place] [phone] documented as of this encounter Advance Directives 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
--- OUTSIDE RECORDS SUMMARY | 2019-08-18 20:06 | XMS REPORT | Summary of Care ---
Author Author [facility] Organization [facility] Address Unknown Phone Unavailable Care Team Providers Care Picker Box Operator Name [employer], [employer] Supplies [phone] Kalyn Leija MD PCP Reason for Visit * Reason Comments Follow Up ALONZO on CPAP Encounter Details Care Team Description Date Type Department Ruy Green, ALEX [address] [place] [address] Follow Up (ALONZO on CPAP) 01/20/[address] [facility] Sleep Center [address] [facility]. 8th Floor; [address] [place] [address] Allergies Comments Active Allergy Reactions Severity Noted [...] mouth daily. 9 Coronary artery disease involving [place] coronary artery of [place] heart without angina pectoris Active naproxen (NAPROSYN) [...] M20) 20 MEQ mouth daily. 9 tablet documented as of this encounter (statuses as [...] Signs Reading Time Taken Comments Vital Sign 180/76 01/20/2019 1:40 PM ROOFING APPRENTICE pt medicine has changed Blood Pressure 59 01/20/2019 1:40 PM ROOFING APPRENTICE Pulse 37.3 C (99.1 F) 01/20/2019 1:40 PM ROOFING APPRENTICE Temperature 16 01/20/2019 1:40 PM ROOFING APPRENTICE Respiratory Rate - - Oxygen Saturation - - Inhaled Oxygen Concentration 77.4 kg (170 lb 9.6 oz) 01/20/2019 1:40 PM ROOFING APPRENTICE Weight 149.9 cm (4' 11") 01/20/2019 1:40 PM ROOFING APPRENTICE Height 34.46 01/20/2019 1:40 PM ROOFING APPRENTICE Body Mass Index documented in this encounter Patient Instructions * Patient Instructions* Ruy Green NP - 01/20/2019 1:40 PM ROOFING APPRENTICE 1. Make sure to use your CPAP every night for the full night of sleep. Work on the following: Try to wake up at the same time every morning Try to go to bed at the same time every night Avoid screen exposure for ~2hours before you want to go to sleep Avoid activities in bed - try to reserve the bed and bedroom for sleep only If you're in bed but not sleepy, leave the bedroom and do something relaxing until you feel sleepy - then go back to bed to sleep. ING APPRENTICE documented in this encounter Progress Notes * Ruy Green NP - 01/20/2019 1:40 PM ROOFING APPRENTICE Patient with the following Sleep problems: 1. ALONZO on CPAP 2. Insomnia Patient of Dr. Kong's. Prior to CPAP the patient reported loud snoring, freque nt nocturnal arousals, witnessed apneas, restless sleep, and non-refreshing slee p. The patient has also reported difficulty initiating and maintaining sleep Diagnosed ALONZO in 10/2008, RDI 29.9, SpO2 rios 84% - after a follow up titration study, BPAP was recommended, she tried BPAP but gave up due to frustration over air leaks around the mask and difficulty with traveling. Returned to Dr. Kong 01/2018, HST ordered which showed RDI 8.9 SpO2 rios 82% Since then has been on Autotitrating CPAP @ 9-15 cm H2O Insomnia - per Dr. Kong 07/2018 - "Long discussion about proper sleep hygiene, reasonable expectations of sleep, sleep drive concept, and basic stimulus contr ol therapy techniques. Discussed avoiding any situation that predisposes to "dameon lls" shanice in afternoon and evening hours. Discussed trying to maintain activity during those periods to avoid inadvertant sleep onsets or "microsleeps" - discus sed non weight bearing activity. Discussed restricting bedtimes to 10PM and 6AM . Avoid TV watching in bed. Also discussed side effects of current medications including pain medications. Seeing pain rehabilitation specialist." Patient reports that she has had difficulty making changes to her sleep hygiene. Patient reports that she takes temazepam and hydroxyzine nightly for sleep. She is interested in cognitive therapy for insomnia. Left knee - total replacement 10/13/2018 Uses F20 mask Humidifier - automatic @ 4 Currently, BT at 8:30PM-10:30PM- watches TV in bed, falls asleep in 30 minutes, wakes up 1- 3 times per night due to knee pain or nocturia - back to sleep easily Gets up at 8:30AM-10:30AM , TST average 6.5 hrs Wakes up feeling "okay". Reports AM headaches, occasional AM dry mouth Reports no snoring or witnessed apneas on PAP Has problems with mask leaking in to her eyes some night. Patient denies problem s with pressure. Daytime functioning: reports no daytime sleepiness, reports mild concentration d ifficulties Does not take naps Reports not nasal congestion, bleeding, dryness Patient reports benefits from CPAP: "I can wake up feeling refreshed and clear h eaded. ESS: 3 Compliance report : Usage 12/21/2018 - 01/19/2019 Usage days 29/30 days (97%) >= 4 hours 24 days (80%) < 4 hours 5 days (17%) Usage hours 185 hours 0 minutes Average usage (total days) 6 hours 10 minutes Average usage (days used) 6 hours 23 minutes Median usage (days used) 6 hours 25 minutes Total used hours (value since last reset - 01/19/2019) 1,240 hours AirSense 10 AutoSet Serial number [id number] Mode AutoSet Min Pressure 9 cmH2O Max Pressure 15 cmH2O EPR Fulltime EPR level 3 Response Standard Therapy Pressure - cmH2O Median: 11.4 95th percentile: 13.5 Maximum: 14.0 Leaks - L/min Median: 0.0 95th percentile: 1.4 Maximum: 59.4 Events per hour AI: 2.4 HI: 0.5 AHI: 2.9 Apnea Index Central: 0.1 Obstructive: 2.0 Unknown: 0.2 RERA Index 0.2 Past Medical History: Diagnosis Date Antibiotic long-term [...] 04/21/2013 Unspecified essential hypertension Past Surgical History: Procedure Laterality Date HX ANGIOPLASTY 2006 cath X 2, total of 4 stents HX APPENDECTOMY HX BREAST SURGERY Right 2010 HX BUNIONECTOMY 1998 both feet HX CARDIAC CATHERIZATION Feb 20 Little blockage according to gun sealing machine operator Dr. Hernandez HX CERVICAL FUSION HX HYSTERECTOMY, TOTAL ABDOMINAL 2000 prolonged surgery HX SINUS SURGERY HX SPINE SURGERY HX STENT/ANGIOPLASTY HX TONSILLECTOMY HX TONSILLECTOMY AND ADENOIDECTOMY HX TOTAL KNEE REPLACEMENT Right 09/18/2016 HX URETHRA SURGERY X3 Current Outpatient Medications: albuterol 108 (90 base) [...] AT BEDTIME, Disp: 30 Tab, Rfl: 0 hydrOXYzine (ATARAX) 25 MG [...] as needed for Sleep., Disp: , Rfl: Family History Problem Relation Name Age of [...] Cancer Other Tuberculosis Other COPD Other Social History Socioeconomic History Marital status: Spouse [...] file Gets together: Not on file Attends yazdanism service: Not on file Active member of [...] Not on file Social History Narrative Born: [facility]. Education: 12th grade. Occupation: Retired. Caffeine: Drinks per day 3 Exercise: Type: none Frequency, distance, or amount none Habits: Use seat belts 80-100%* 50-80% Less than 50% ROS Vital Signs Height: 4' 11" (149.9 cm) Weight - Scale: 170 lb 9.6 oz (77.4 kg) Temp: 99.1 F (37.3 C) Temp Source: Oral Pulse: 59 Respirations: 16 BP: 180/76(pt medicine has changed) Patient Position: Sitting BP Location: left arm Oxygen Therapy O2 Sat: 97 % Height and Weight BSA (Calculated - sq m): 1.79 sq meters BMI (Calculated): 34.5 Predicted Body Weight: 95.24 Physical Exam Problem List Items Addressed This Visit ALONZO (obstructive sleep apnea) - Primary Download reviewed and discussed with patient - Good use and control of obstruc tive events. Pressure capping noted on some nights. Patient appreciates and acknowledges the benefit from CPAP on sleep quality and daytime function. Patient commended on use and encouraged to continue Setting change - Autotitrating CPAP @ 9-17 cm H2O Ordered new mask fitting for patient to address reported air leak discomfort. Relevant Orders PAP SUPPLIES Insomnia Patient prescribed temazepam, xanax, and hydroxyzine for sleep by other provid ers. Patient educated on risks of polypharmacy and side effect profiles of these medications. Advised patient to discuss reducing medications/dosages with pres ribing physicians. Patient educated on sleep hygiene: "Try to wake up at the same time every mornin g. Try to go to bed at the same time every night. Avoid screen exposure for ~2ho urs before you want to go to sleep. Avoid activities in bed - try to reserve the bed and bedroom for sleep only. If you're in bed but not sleepy, leave the bedr oom and do something relaxing until you feel sleepy - then go back to bed to sle ep." Will schedule patient to see Dr. Batista. I spent 25 minutes with this patient , more than half the time spent on counseli ng and coordination of care ING APPRENTICE documented in this encounter Plan of Treatment Care Team Description Date Type Specialty Kalyn Leija MD [address] [place] [address] [phone] 01/24/2019 Office Visit General Internal Me olivia Rose, Rick Jackson Jr., MD [address] [address] [phone] 01/24/2019 Office Visit Physical Medicine a nd Rehab Bret Fuller MD [address] [address] [phone] 02/21/2019 Office Visit Physical Medicine a nd Rehab Adrian Gallego MD [address] [facility] [address]LO[address], [place] [address] [phone] 04/12/2019 Office Visit Urology Ruy Green NP [address] [place] [address] [phone] 07/27/2019 Office Visit Sleep Center Order Schedule Name Type Priority Associated Diag noses Ordered: 01/20/2019 PAP SUPPLIES General Supply Routine ALONZO (obstructiv e sleep apnea) Health Maintenance Due Date Last Done Comments [...] filedocumented in this encounter Visit Diagnoses Diagnosis ALONZO (obstructive sleep apnea) - Primary Obstructive sleep apnea (adult) (pediat sean) Insomnia, unspecified type documented in this encounter Insurance Type Payer Benefit Subscriber ID Effective Phone Address Plan / Dates Group Medicare MEDICARE MEDICARE xxxxxxxxxxx 2018-P [address] resent [id number] [place] [address] Medicare UNITED HEALTHCARE AARP xxxxxxxxxxx 2018-P [address] MEDICARE resent [id number] [facility] [place] [phone] documented as of this encounter Advance Directives Patient Dairy Technician Explanation Type Date Recorded Advance Directives and Living Will Power of Stone Decorator
--- OUTSIDE RECORDS SUMMARY | 2019-08-18 20:06 | XMS REPORT | Summary of Care ---
Author Author [facility] Organization [facility] Address Unknown Phone Unavailable Care Team Providers Care Rough Carpenter Name Role Phone [employer], [employer] [phone] Kalyn Leija MD PCP Reason for Visit * Reason Comments Rash Encounter Details Care Team Description Date Type Department Jake Day MD [address] [place] [address] Rash 05/20/2019 Office Visit [facility] General Internal Medicine [address]; [address] [place] [address] Allergies Comments Active Allergy Reactions Severity Noted Date Bandaids Adhesive Tape Rash Low 01/11/2013 Psych - pt states that she feels like she's coming out of her skin Metoclopramide Hcl Anxiety, Medium 09/11/2008 Other (See Comments) Sulfa Antibiotics Hives High 01/11/2013 Sulfa Drugs Cross Hives High 09/11/2008 Reactors documented as of this encounter (statuses as of 05/20/2019) Medications End Date Status Medication Sig Dispensed [...] mouth daily. 9 Coronary artery disease involving [place] coronary artery of [place] heart without angina pectoris Active hydrOXYzine (ATARAX) [...] daily. 9 Depression, unspecified depression type Active hydrocodone-acetaminophen Take 1 Tab by 120 Tab 0 (NORCO) 10-325 MG per mouth every 6 0 tablet hours as needed for Pain. M54.15 Dx Active omeprazole (PRILOSEC) 40 Take 1 Cap by 90 Cap 1 MG capsuleIndications: mouth daily. 0 Gastroesophageal reflux disease, esophagitis presence not specified Active VALTREX 500 MG Take 2 Tabs 40 Tab 3 tabletIndications: by mouth two 0 Genital herpes simplex, times daily. unspecified site 05/20/2019 Discontinued (Reorder) omeprazole (PRILOSEC) 40 TAKE 1 90 Cap 1 0 MG capsuleIndications: CAPSULE BY 9 Encounter to establish MOUTH DAILY care with new doctor, Essential hypertension, benign, Dyslipidemia, History of coronary artery stent placement, Precordial pain, Nonspecific abnormal electrocardiogram (ECG) (EKG), ALONZO (obstructive sleep apnea), Increased BMI 05/20/2019 Discontinued (Reorder) VALTREX 500 MG tablet Take 500 mg 0 by mouth two times daily. documented as of this encounter (statuses as of 05/20/2019) Active Problems Problem Noted Date ALONZO (obstructive sleep apnea) 01/20/2019 Last Assessment & Plan: Download reviewed and discussed with pa tient - Good use and control of obstructive [...] as of this encounter (statuses as of 05/20/2019) Resolved Problems Problem Noted Date Resolved Date Other malaise and fatigue 10/23/2008 11/30/2011 Diarrhea 09/27/2008 11/30/2011 Lip lesion 09/11/2008 11/30/2011 documented as of this encounter (statuses as of 05/20/2019) Immunizations Name Administration Dates Next Due Influenza [...] at Date Recorded Female 04/11/2019 3:10 PM [employer] Industry Job Start Date Occupation Not on file Not on file Not on file Travel End Travel History Travel Start No recent travel history available. documented as of this encounter Last Filed Vital Signs Reading Time Taken Comments Vital Sign 146/82 05/20/2019 2:13 PM PICKLE PROCESSOR Blood Pressure 84 05/20/2019 2:13 PM PICKLE PROCESSOR Pulse 36.6 C (97.8 F) 05/20/2019 2:13 PM PICKLE PROCESSOR Temperature 16 05/20/2019 2:13 PM PICKLE PROCESSOR Respiratory Rate 98% 05/20/2019 2:13 PM PICKLE PROCESSOR Oxygen Saturation - - Inhaled Oxygen Concentration 76.1 kg (167 lb 12.8 oz) 05/20/2019 2:13 PM PICKLE PROCESSOR Weight 148.6 cm (4' 10.5") 05/20/2019 2:13 PM PICKLE PROCESSOR Height 34.47 05/20/2019 2:13 PM PICKLE PROCESSOR Body Mass Index documented in this encounter Patient Instructions * Patient Instructions* Jake Day MD - 05/20/2019 2:00 PM PICKLE PROCESSOR -Hibiclens antiseptic wash -Neosporin topical to the site twice a day -Keep the area covered especially in the LTAC system C ST documented in this encounter Progress Notes * Jake Day MD - 05/20/2019 2:00 PM PICKLE PROCESSOR CC: Chief Complaint Patient presents with Rash PCP: Kalyn Leija MD Last GIM visit: 03/01/2019 History of present illness: HPI Ms. Vuong is a 68 y.o. year old female with PMH as below who presents for acu te care visit. #Rash -Sore on the left lower leslie -Came up on Thursday/Thursday -Thought to be secondary to an insect bite vs poison nadege that could be due to he r cats that live outside (She's had this before) -Pruritic -No major discharge -Has been applying neosporin but notes that it is getting bigger #Genital Herpes -Valtrex for 10 days (1 gram twice a day) as needed -Used to be simply called in by OBGYN -Area of lesions has resolved on its own but requesting a refill Past Medical History: Diagnosis Date Antibiotic long-term [...] used smokeless to bacco. Alcohol: She reports previous alcohol use of about 1.0 standard drinks of alco hol per week. Drug Use: She reports no history of drug use. Past Surgical History: Procedure Laterality Date HX ANGIOPLASTY 2006 cath X 2, total of 4 stents HX APPENDECTOMY HX BREAST SURGERY Right 2010 HX BUNIONECTOMY 1998 both feet HX CARDIAC CATHERIZATION Feb 20 Little blockage according to senior geotechnical engineer Dr. Hernandez HX CERVICAL FUSION HX HYSTERECTOMY, [...] Tab by mouth daily. 90 Tab 3 PREMARIN 0.9 MG TABS Take 0.9 mg [...] facility-administered medications on file prior to visit. ROS 10 point review of systems was performed and was negative except as above. PHYSICAL EXAM Vitals: 05/20/19 1413 BP: 146/82 BP Location: right arm Patient Position: Sitting Cuff Size: regular Pulse: 84 Resp: 16 Temp: 97.8 F (36.6 C) TempSrc: Oral SpO2: 98% Weight: 167 lb 12.8 oz (76.1 kg) Height: 4' 10.5" (1.486 m) Body mass index is 34.47 kg/m. Physical Exam Constitutional: She is oriented [...] exhibits no distension. There is n o abdominal tenderness. Musculoskeletal: Normal range of motion. General: No edema. Neurological: She is alert and oriented to person, place, and time. Skin: Skin is warm and dry. Erythematous, scaling lesion on left lower leslie with no fluctuance, no pus Psychiatric: Mood and affect normal. Nursing note and vitals reviewed. Media Information Document Information Clinical Photos/ Drawings Left leslie lesion 05/20/2019 14:34 Attached To: Office Visit on 05/20/19 with Jake Day MD Source Information Jake Day MD | [facility] Labs and imaging reviewed in [facility]. ASSESSMENT/ PLAN Ms. Vuong is a 68 y.o. year old female who is here for evaluation of a leslie r steffen Diagnoses and all orders for this visit: Skin lesion Gastroesophageal reflux disease, esophagitis presence not specified - omeprazole (PRILOSEC) 40 MG capsule; Take 1 Cap by mouth daily. Genital herpes simplex, unspecified site - VALTREX 500 MG tablet; Take 2 Tabs by mouth two times daily. Other orders - Discontinue: VALTREX 500 MG tablet; Take 500 mg by mouth two times daily. -Likely insect bite vs contact dermatitis, less likely to be cellulitis vs folli culitis vs pyoderma gangrenosum Treatment regimen -Hibiclens antiseptic wash (patient has this at home) -Neosporin topical to the site twice a day -Keep the area covered especially in the LTAC system -Monitor size The patient expressed understanding of the diagnosis and treatment plan. Warning signs and symptoms including ER precautions were provided. Questions were answe red to the patient's satisfaction; understanding of how to receive follow up car e was verified. Jake Day MD Internal Medicine [facility] 05/20/2019 4:31 PM C documented in this encounter Plan of Treatment Care Team Description Date Type Specialty Rick Rose Jr., MD [address] [address] 06/01/2019 Office Visit [facility] Ruy Green NP [address] [place], [place] [id number] [phone] 07/27/2019 Office Visit [facility] Health Maintenance Due [...] filedocumented in this encounter Visit Diagnoses Diagnosis Skin lesion - Primary Unspecified disorder of skin and subcut aneous tissue Gastroesophageal reflux disease, esopha gitis presence not specified Genital herpes simplex, unspecified sit e documented in this encounter Insurance Type Payer Benefit Subscriber ID Effective Phone Address Plan / Dates Group Medicare MEDICARE MEDICARE xxxxxxxxxxx 2018-P [address] resent [id number] [place] [address] Medicare [employer] AARP xxxxxxxxxxx 2018-P [address] resent [id number] [facility] [place] [address] [phone] [place] (Home) [place] [address] documented as of this encounter Advance Directives For more information, please contact: [phone] Patient Physical Meteorologist Explanation Type Date Recorded Advance Directives and Living Will Power of Tobacco Stripper Hand
[2019-08-18] MEDS ORDERED: HYDRALAZINE HCL 20 MG/ML VIAL IV STA (22:13)
[2019-08-18] MEDS ORDERED: CYCLOBENZAPRINE10 MG PO (22:42)
[2019-08-18] MEDS ORDERED: KETOCONAZOLE15 GM TOP (22:42)
[2019-08-18] MEDS ORDERED: BACLOFEN10 MG PO (22:42)
[2019-08-18] MEDS ORDERED: CLOBETASOL1 EA/15 GM TOP (22:44)
[2019-08-18] MEDS ORDERED: PREDNISONE20 MG PO (22:44)
[2019-08-18] MEDS ORDERED: HYDRALAZINE HCL 20 MG/ML VIAL IV PRN (22:45)
[2019-08-18] MEDS ORDERED: ULTRAM50 MG PO (23:05)
[2019-08-18] MEDS ORDERED: RESTORIL15 MG PO (23:07)
[2019-08-18] MEDS: HYDROCODONE/APAP 10MG-325MG TAB PO PRN (23:11)
[2019-08-19 01:24] LABS: CREATINE KINASE 27 IU/L (29-168)
[2019-08-19 02:30] LABS: CHOL/HDL RATIO 2.8 (3.0-3.6)
[2019-08-19] MEDS: HYDROCODONE/APAP 10MG-325MG TAB PO PRN ×2 (05:04→11:10)
[2019-08-19 07:02] LABS: CREATINE KINASE MB 0.8 ng/mL (0-5.0)
[2019-08-19] MEDS: METOPROLOL SUCCINATE 25 MG TAB XL PO SCH (10:01)
[2019-08-19] MEDS ORDERED: ONDANSETRON HCL INJ 2MG/ML 2ML 2 MG/ML VIAL IV STA (13:09)
--- NOTE | 2019-08-19 15:18 | NUR ---
Around 11am this morning the patient stated that she had been here in the ER for nearly 24 hours and wanted to go to [facility] in the [facility] where all of her physicians are located. Nurse called Dr. Rodríguez to ask what he wanted to do with the patient and how we could help her. Dr. Rodríguez stated that from his stand point her cardiac enzymes were negative and he would have his SEASONAL CLERK come and discharge the patient. After that the patient started feeling nauseated and vomited. Nurse obtained a one time order for Zofran IV for the patient which helped for about an hour. The patient then vomited again and asked for phenergan suppository. The patient spoke to her PCP on the phone and asked if her PCP would call in a prescription for phenergan so she could leave. The PCP stated that she could not do that and that the patient needed to wait to be evaluated by the hospitalist here. Nurse called Daija the SEASONAL CLERK for Dr. Rodríguez and she informed me that she was in ICU seeing patients and would come to evaluate the patient shortly.
--- NOTE | 2019-08-19 15:20 | NUR ---
Pt updated on POC, informed her that Dr. Loza's PA was aware of her wishes to transfer. Informed her that the PA was in house and will come see her during her rounds. Pt verbalized understanding. Pt's niece at bedside. Pt reports chills temperature taken at this time. current temp 98.1.
[2019-08-19] MEDS: VALSARTAN 160 MG TAB PO SCH (16:29)
[2019-08-19] MEDS ORDERED: LIPITOR20 MG PO (16:34)
[2019-08-19] MEDS ORDERED: PEPCID20 MG PO (16:34)
[2019-08-19] MEDS ORDERED: ASPIRIN CHEW81 MG PO (16:34)
[2019-08-19] MEDS ORDERED: PHENERGAN SUPP25 MG PR (16:34)
[2019-08-19] MEDS ORDERED: HYDRALAZINE HCL 20 MG/ML VIAL IV PRN (17:15)
[2019-08-19] MEDS ORDERED: PANTOPRAZOLE 40 MG 10ML VIAL IV SCH (17:15)
[2019-08-19] MEDS ORDERED: ACETAMINOPHEN 325 MG TAB PO PRN (17:15)
[2019-08-19] MEDS ORDERED: ALPRAZOLAM 0.5 MG TAB PO PRN (17:30)
--- NOTE | 2019-08-19 18:00 | NUR ---
ARRIVED VIA STRETCHER FROM ER, AA&OX3, RA, PT STATES INTERMITTENT NAUSEA "SINCE 1 PM TODAY", ORIENTED TO ROOM AND CALL LIGHT SYSTEM, CALL LIGHT WITHIN REACH, FAMILY CAREGIVER AT BS
[2019-08-19] MEDS: SODIUM CHLORIDE 0.9% 1000ML 1,000 ML IV SCH (18:24)
[2019-08-19] MEDS: PROMETHAZINE 12.5MG/ NACL 0.9% 12.5 MG/50 ML BAG IV PRN (18:35)
--- NOTE | 2019-08-19 18:35 | NUR ---
MEDICATED PER MD ORDER FOR NAUSEA WITH PHENERGAN, PT EDUCATED TO NOT GET OOB WITHOUT CALLING FOR ASSISTANCE, PT AND EDUCATION TRAINER VERBALIZED UNDERSTANDING
--- NOTE | 2019-08-19 19:15 | NUR ---
SPOKE WITH CHENTE YODER, OKAYED FOR CAREGIVER TO STAY, INSTRUCTIONS GIVEN TO CAREGIVER REGARDING RULES OF STAYING OVERNIGHT, SPOKE WITH CAMDEN LUKE, MADE AWARE THAT CAREGIVER WILL BE AT BEDSIDE, DESIGNATED VISITOR PAPER COMPLETED
[2019-08-19 19:16] VITALS: BP 158/58
[2019-08-19 20:00] VITALS: BP 140/73
[2019-08-19 20:07] LABS: ALBUMIN 4.1 g/dL (3.5-5.0); ALBUMIN/GLOBULIN RATIO 1.4 (0.8-2.0); ANION GAP 16.3 mmol/L (8-16); CALCIUM 9.2 mg/dL (8.4-10.2); CREATININE, SERUM 0.94 mg/dL (0.57-1.11); POTASSIUM 3.3 mmol/L (3.5-5.1)
[2019-08-19 21:00] VITALS: BP 140/73
[2019-08-19] MEDS: ATORVASTATIN 20 MG TAB PO SCH (21:00)
[2019-08-19] MEDS: TEMAZEPAM 15 MG CAP PO SCH (21:00)
[2019-08-19] MEDS: PANTOPRAZOLE 40 MG 10ML VIAL IV SCH (21:18)
[2019-08-19] MEDS ORDERED: LORAZEPAM INJ 2 MG/ML VIAL IV ONE (22:15)
[2019-08-19] MEDS ORDERED: SALINE 0.65% NAS SOLN 1 SPRAY BTL PRN (22:15)
[2019-08-19] MEDS ORDERED: SODIUM CHLORIDE 0.9% 50ML 50 ML ONE (23:45)
[2019-08-19] MEDS ORDERED: IOPAMIDOL 370 MG/ML 200 ML INFUS..BTL INJ ONE (23:45)
[2019-08-20] VITALS (8 sets, daily range): BP systolic 148–170; BP diastolic 63–76
[2019-08-20] MEDS: PROMETHAZINE 12.5MG/ NACL 0.9% 12.5 MG/50 ML BAG IV PRN ×3 (00:45→16:03)
--- NOTE | 2019-08-20 01:51 | Diagnostic Imaging Report ---
CT Abdomen And Pelvis with Intravenous Contrast INDICATION: ^pain, nausea, vomiting ^[id number] ^[id number] TECHNIQUE: Thin collimation axial images obtained from the diaphragm to the level of the pubic symphysis following the uneventful administration of 100 cc of low osmolar, nonionic intravenous contrast. Dose reduction techniques used: Automated exposure control, adjustment of the mAs and/or kVp according to patient size, standardized low-dose protocol, and/or iterative reconstruction technique. RADIATION DOSE: Total DLP: 559.6 mGy*cm Estimated effective dose: (DLP x 0.015 x size factor) mSv CTDIvol has been reviewed. It is below the limits set by the Radiation Protocol Committee (RPC). COMPARISON: CT chest 08/18/2019. ABDOMEN FINDINGS: Lung Bases: Trace bibasilar atelectasis. Visualized portion of the mediastinum is normal. Liver: Normal attenuation. No evidence for mass. Gallbladder: Excreted contrast from previous CT. No mural thickening. No biliary ductal dilatation. Pancreas: Mild fatty atrophy. No mass or ductal dilatation. Spleen: Normal in size. No evidence of mass.. Adrenal Glands: No evidence for mass. Kidneys: Right: Normal enhancement. Multiple cysts measure up to 1.6 cm. No hydronephrosis. Left: Normal enhancement. Multiple cysts, with the largest cyst measuring 6.6 cm. No hydronephrosis. Lymph Nodes: No lymphadenopathy. Aorta: Normal in diameter with scattered calcifications PELVIS FINDINGS: Bowel: Stomach: Normal. Small Bowel: Normal in caliber with normal wall thickness. Large Bowel: Normal in caliber with normal wall thickness. Appendix: Not visualized. Bladder: Normal. The uterus is absent. No adnexal mass Peritoneum/retroperitoneum: No free fluid or fluid collection.. Bones: Mild degenerative changes of the spine, most severe at L5-S1. Soft tissues: Unremarkable IMPRESSION: 1. No evidence for bowel obstruction or inflammation. 2. No CT findings to explain epigastric pain. 3. Other findings as described above. Signed by: Dr. Manisha Day MD on 08/20/2019 1:48 AM
--- NOTE | 2019-08-20 06:50 | NUR ---
PATIENT IS RESTING COMFORTABLY IN THE BED. BED IS IN LOWEST POSITION AND CALL MEADE IS WITHIN REACH
--- NOTE | 2019-08-20 07:10 | NUR ---
Received bedside shift report from RADHA Brown. Patient is asleep with no visible signs of distress noted. Caregiver at bedside. Call light within reach.
[2019-08-20] MEDS: PANTOPRAZOLE 40 MG 10ML VIAL IV SCH ×2 (08:04→20:01)
[2019-08-20] MEDS: KETOROLAC TROMETHAMINE 30 MG/ML VIAL IV PRN ×2 (08:05→16:04)
[2019-08-20] MEDS: FLUTICASONE PROPIONATE NASAL SPRAY NS SCH ×2 (08:30→17:02)
[2019-08-20] MEDS ORDERED: PANTOPRAZOLE SO40 MG PO (08:47)
[2019-08-20] MEDS ORDERED: ATIVAN0.5 MG PO (08:47)
[2019-08-20] MEDS ORDERED: LORATADINE/PSEUDOEPHEDRINE 24 HR SR TAB PO SCH (09:00)
[2019-08-20] MEDS ORDERED: LORAZEPAM INJ 2 MG/ML VIAL IV ONE (09:00)
[2019-08-20] MEDS ORDERED: SPIRONOLACTONE 25 MG TAB PO SCH (09:00)
[2019-08-20] MEDS ORDERED: ASPIRIN 81 MG CHEW TAB PO SCH (09:00)
--- NOTE | 2019-08-20 09:45 | NUR ---
Off to OR via stretcher, Tele remains in place. No distress noted. Mask placed on patient for transport. Caregiver to waiting area.
--- NOTE | 2019-08-20 11:45 | NUR ---
Returned from PACU via stretcher. Alert and oriented x4, stable condition. Caregiver at bedside. Tele monitor in place, sinus rhythm. IV restarted. GI Soft diet. Call light within reach.
--- NOTE | 2019-08-20 11:47 | Operative Report ---
DATE OF PROCEDURE: 08/20/2019 SURGEON: Prasanna Toledo MD PROCEDURE: EGD with polypectomy and biopsies. INDICATIONS FOR EGD: Upper abdominal pain, nausea, and vomiting. MEDICATIONS: The patient was done under MAC. Please see anesthesiologist's note. PROCEDURE IN DETAIL: With the patient in left lateral decubitus position, a flexible fiberoptic Olympus gastroscope was introduced into the esophagus under direct visualization without any difficulty. There was some patchy erythema noted in distal esophagus. The scope was then advanced with ease into the stomach. Mucosa overlying the antrum and the body revealed some patchy erythema and low-grade to moderate edema, and biopsies were obtained sent to stain for H. pylori. Several hyperplastic-appearing polyps were noted in the body of the stomach and some were partially excised with the cold biopsy forceps. The pylorus was of normal contour and shape, was intubated with ease and the scope was advanced all the way to the second portion of the duodenum. The scope was then withdrawn slowly and biopsies were obtained from the proximal second portion and duodenal bulb to rule out sprue. The scope was then withdrawn back into the stomach and retroflexed and mucosa overlying the fundus and cardia appeared to be within normal limits. The scope was then straightened out, it was subsequently withdrawn. Patient tolerated the procedure well. IMPRESSION: 1. Distal esophagitis, mild. 2. Gastritis, biopsied. Biopsies sent to stain for H pylori. 3. Gastric polyps, hyperplastic-appearing, body of stomach, some partially excised with the cold biopsy forceps. 4. Rule out sprue. PLAN: Follow up histology. Initiate Protonix 40 mg one p.o. q.a.m. a.c. Prasanna Toledo MD [facility] /[id number] cc: Shayne Rodríguez MD
[2019-08-20] MEDS: VALSARTAN 160 MG TAB PO SCH (12:38)
[2019-08-20] MEDS: METOPROLOL SUCCINATE 25 MG TAB XL PO SCH (12:39)
[2019-08-20] MEDS: SODIUM CHLORIDE 0.9% 1000ML 1,000 ML IV SCH (12:39)
[2019-08-20] MEDS: HYDROCODONE/APAP 10MG-325MG TAB PO PRN ×2 (12:50→19:13)
[2019-08-20] MEDS ORDERED: PROPOFOL IV EMULSION 10 MG/ML 20 ML VIAL ONE (14:15)
--- NOTE | 2019-08-20 17:40 | NUR ---
Discharge instructions and prescriptions given to patient and caregiver. Verbalized understanding. Requests to stay for last dose of Phenergan for fear of over night nausea and vomiting. Charge nurse notified. Will endorse last dose to night nurse. All belongings accounted for. Call light within reach.
[2019-08-20] MEDS: ATORVASTATIN 20 MG TAB PO SCH (20:01)
[2019-08-20] MEDS: TEMAZEPAM 15 MG CAP PO SCH (20:01)
--- NOTE | 2019-08-20 21:16 | Discharge Summary ---
ADMISSION DIAGNOSES: 1. Chest pain. 2. Hypertension. 3. Anxiety. 4. Depression. 5. Hyperlipidemia. 6. Abdominal pain with nausea and vomiting. 7. Obstructive sleep apnea with CPAP use. 8. Morbid obesity with BMI of 40.4. DISCHARGE DIAGNOSES: 1. Chest pain. 2. Hypertension. 3. Anxiety. 4. Depression. 5. Hyperlipidemia. 6. Abdominal pain with nausea and vomiting. 7. Obstructive sleep apnea with CPAP use. 8. Morbid obesity with BMI of 40.4. 9. Esophagitis. 10. Gastritis. 11. Rule out pancreatitis. 12. Rule out myocardial infarction. HISTORY: Hypertension, asthma, CAD with PCI x4, anxiety, depression, hyperlipidemia, chronic back pain, ALONZO with CPAP. SURGICAL HISTORY: Tonsillectomy, bladder surgery, C3 to C7 fusion, appendectomy, bilateral total knee replacement. FAMILY HISTORY: The patient's mother and father had cancer. SOCIAL HISTORY: Noncontributory. HOSPITAL COURSE: A 68-year-old female, admits with complaints of shortness of breath and chest pressure intermittently only when taking prednisone for her skin condition. She denies cough, fever, and chest pain. While in the ER, she started having nausea and vomiting. She now complains of epigastric pain as well. On admission, troponins were negative x3. Chest x-ray was negative. CT of the chest showed no abnormalities. CT of the abdomen and pelvis showed no obstruction or inflammation. Echo showed an EF of 65%. TSH was within normal limits as well as lipase. The patient's cholesterol and LDL were elevated. The patient was started on Lipitor and aspirin. She was taken for an EGD, which showed gastritis and esophagitis. She was started on Protonix. She was also given a prescription for promethazine suppositories per her request. She will be discharged home as well with a few pills of Ativan, as she said she got a dose at night and it really helps her feel better. She will follow up with her primary care doctor and Psych doctor as discussed. She is tolerating diet and feeling much better at the time of discharge. Vital signs stable and the patient afebrile. Dictated by Daija Barber, ALEX MD GIOVANI Grider/MODL /[id number]
== END 2019-08-20 20:30 | disposition home or self-care (01) ==
LOC: ER 13:50 → ERHOLD 18:34 → MED/SURG 08-19 17:18
PROVIDERS: ADMIT Internal Medicine; ATTEND Internal Medicine
DX: R07.9 Chest pain, unspecified (principal); I10 Essential (primary) hypertension; J45.909 Unspecified asthma, uncomplicated; E78.5 Hyperlipidemia, unspecified; E66.01 Morbid (severe) obesity due to excess calories; G47.30 Sleep apnea, unspecified; H91.90 Unspecified hearing loss, unspecified ear; Z88.2 Allergy status to sulfonamides; Z88.8 Allergy status to other drugs, medicaments and biological substances; F41.9 Anxiety disorder, unspecified; F32.9 Major depressive disorder, single episode, unspecified; G47.33 Obstructive sleep apnea (adult) (pediatric); Z68.41 Body mass index [BMI] 40.0-44.9, adult; I25.10 Atherosclerotic heart disease of native coronary artery without angina pectoris; K20.9 Esophagitis, unspecified; K29.70 Gastritis, unspecified, without bleeding; K31.7 Polyp of stomach and duodenum; Z95.5 Presence of coronary angioplasty implant and graft; L20.9 Atopic dermatitis, unspecified
CPT/HCPCS: 36415 ×2; 43239; 71045; 71260; 74177; 80048; 80053 ×2; 80061; 82550 ×2; 82553 ×2; 83690; 84443; 84484 ×2; 85025; 87635; 88305; 88312; 93005; 93306; 97116; 97161; 97530; 99284; C9113 ×2; G0378 ×3; J0360; J1885; J2060; J2550 ×2; J2704; J7030 ×2; Q9967 ×2

== ENCOUNTER → 2020-01-04 | Outpatient (CLI) | payer MEDICARE ==
[~2020-01-04] MED LIST: ALPRAZOLAM0.5 M1 PO; ASPIRIN CHEW81 MG PO; ATIVAN0.5 MG PO; BACLOFEN10 MG PO; CLOBETASOL1 EA/15 GM TOP; CLOTRIMAZOLE15 GM TOP; CYCLOBENZAPRINE10 MG PO; DIOVAN160 MG PO; ESTRADIOL1 MG PO; HYDROXYZINE HCL25 MG PO; KETOCONAZOLE15 GM TOP; LIPITOR20 MG PO; METOPROLOL SUCC25 MG PO; MUPIROCIN15 GM; OMEPRAZOLE40 MG PO; PANTOPRAZOLE SO40 MG PO; PEPCID20 MG PO; PHENERGAN SUPP25 MG PR; PREDNISONE20 MG PO; PREMARIN0.9 MG PO; PROMETHAZINE HC25 M1 PO; RESTORIL15 MG PO; SPIRONOLACTONE25 MG PO; TEMAZEPAM15 MG; TRIAMCINOLONE A15 G1 TOP; ULTRAM50 MG PO; URIBEL CAPSULE1 EACH; VALTREX500 MG PO; VOLTAREN100 GM
== END ==
LOC: NM 10:59
PROVIDERS: ATTEND Internal Medicine Gastroenterology
DX: R10.11 Right upper quadrant pain (principal)
CPT/HCPCS: 78227; A9537